=== PATIENT | female | born 1970 ===

== ENCOUNTER 2022-10-22 23:04 | Emergency (ER) | payer OTHER, SELFPAY ==
[2022-10-22 23:43] VITALS: BP 138/63; PULSE 73; RESP 18; TEMP 36.4; O2SAT 98; BMI 19.5
--- OUTSIDE RECORDS SUMMARY | 2022-10-23 01:15 | XMS_ITS | Continuity of Care Document ---
Author Name Unknown Organization [facility] Address [address] [place] [address]- Care Team Providers Care Valet Runner Name Role Phone Davidson BATRES, Ezio Laguerre Primary Care Physician [phone] [facility] [id number] Date(s): 08/02/20 - 08/09/20 [facility] [address], [place] [address] Attending Physician: Chrissy Rivera MD Referring Physician: Ezio Cedeño MD Allergies, Adverse Reactions, Alerts Substance Reaction Severity Status penicillin Active penicillins Active Immunizations Given and Recorded Vaccine Date Status Refusal Reason hepatitis B adult vaccine 02/09/20 Given hepatitis B adult vaccine 02/28/19 Given hepatitis B adult vaccine 01/28/19 Given influenza virus vaccine, inactivated 01/23/20 Give n influenza virus vaccine, inactivated 12/06/18 Give n influenza virus vaccine, inactivated 01/04/18 Give n influenza virus vaccine, inactivated 05/17/15 Give n influenza virus vaccine, inactivated 1 12/07/12 Gi douglas tetanus/diphtheria/pertussis, acel(Tdap) 2 10/24/10 Given 1Admin Note: vis given dated 10/15/12 2Admin Note: VIS GIVEN bermudian 02/08/08 Medications dicyclomine 10 mg oral capsule See Instructions, TAKE 1 CAPSULE BY MOUTH FOUR TIMES A DAY NEEDED FOR PAIN, # 60 capsule, 1 Refills, Maintenance, [id number], 160, cm, 02/09/20 11:43:00 EST, Height, 42.2, kg, 02/09/20 11:49:00 EST, Dry Weight Start Date: 04/25/20 Status: Ordered dicyclomine 10 mg oral capsule 1 capsule = 10 mg, By Mouth, 4 times a day, PRN Pain , Moderate, # 60 capsule, 5 Refills, Maintenance, 04/14/21 11:41:00 EDT, Capsule, [facility]/pharmacy #[id number], 160, cm, 07/04/20 8:39:00 EDT, Height, 42.2,kg, 02/09/20 11:49:00 EST, Dry Weight Start Date: 07/04/20 Stop Date: 12/31/20 Status: Ordered dicyclomine 10 mg oral capsule See Instructions, TAKE ONE CAPSULE BY MOUTH FOUR TIMES DAILY, # 120 capsule, 1 Refills, Soft Stop, 02/24/19 10:35:31 EST, 160, cm, 02/24/19 10:08:39 EST, Height, 43.5, kg, 04/01/18 12:55:23 EST, Dry Weight Start Date: 02/24/19 Status: Ordered escitalopram 5 mg oral tablet 1 tablet = 5 mg, By Mouth, Daily, # 90 tablet, 0 Refills, Maintenance, 03/05/20 16:16:00 EST, Tablet, [id number], 160, cm, 02/09/20 11:43:00 EST, Height, 42.2, kg, 02/09/20 11:49:00 EST, Dry Weight Start Date: 03/05/20 Status: Ordered hydrocortisone-lidocaine 2%-2% rectal kit 1 applicator, Rectally, 2 times a day, PRN rectal itching and discomfort, for 7 days, May also apply a small amount of cream externally 3 x daily, # 1 kit, 1 Refills, Acute 08/16/20 12:13:00 EDT, 08/02/20 12:13:00 EDT, [id number], Label harvinder Sp... Start Date: 08/02/20 Stop Date: 08/16/20 Status: Ordered hydrocortisone-pramoxine 2%-1% topical gel 1 application, Topically, 3 times a day, PRN Itch, for 7 days, Apply to affected area, # 29 Gm, 1 Refills, Acute 08/16/20 13:24:00 EDT, 08/02/20 13:24:00 EDT, [id number], Partial fill upon patient request if the prescription is for a schedule... Start Date: 08/02/20 Stop Date: 08/16/20 Status: Ordered hydroquinone 2% topical cream 1 application, Topically, 2 times a day, Bhutanese, apply to dark lesions on face, use sunscreen withuse, # 28 Gm, 1 Refills, Maintenance, 10/06/18 13:14:56 EDT, Cream, 1 application Topically 2 timesa day,Instr:Bhutanese, apply to dark lesions on face,... Start Date: 10/06/18 Status: Ordered Lactaid 3000 units oral tablet 3 tablet = 9,000 units, By Mouth, 3 times a day with meals, # 120 tablet, 0 Refills, Maintenance, 12/08/19 14:49:00 EDT, Tablet, [facility] #[id number], 160, cm, 09/26/19 13:56:00 EDT, Height, 47.8, kg, 04/04/19 11:54:00 EST, Dry Weight Start Date: 12/08/19 Status: Ordered meclizine 25 mg oral tablet 1 tablet = 25 mg, By Mouth, 3 times a day, PRN for dizziness, # 90 tablet, 1 Refills, Maintenance, 04/08/18 16:05:52 EST, Tablet Start Date: 04/08/18 Status: Ordered Milk of Magnesia 8% oral suspension 30 mL = 2.4 Gm, By Mouth, Daily at bedtime, PRN for constipation, # 300 mL, 0 Refills, Maintenance,12/08/19 14:51:00 EDT, Suspension, [facility] #[id number], 160, cm, 09/26/19 13:56:00 EDT, Height, 47.8, kg, 04/04/19 11:54:00 EST, Dry Weight Start Date: 12/08/19 Status: Ordered nabumetone 500 mg oral tablet 1 tablet = 500 mg, By Mouth, 2 times a day, # 60 tablet, 0 Refills, Maintenance, 07/04/20 9:07:00 EDT, Tablet, Partial fill upon patient request if the prescription is for a schedule II opioid drug. Start Date: 07/04/20 Status: Ordered NuLYTELY with Flavor Packs oral powder for reconstitution See Instructions, Drink 240mL every 10-15 minutes until first half is gone. Repeat 6 hours prior toprocedure., # 4,000 mL, 0 Refills, Maintenance, 12/26/19 14:02:00 EDT, [facility] #[id number],Drink 240mL every 10-15 minutes until first half i... Start Date: 12/26/19 Status: Ordered pantoprazole 20 mg oral delayed release tablet 1 tablet = 20 mg, By Mouth, Daily, # 30 tablet, 4 Refills, Maintenance, 02/09/20 17:32:00 EST, CR Tablet, 160, cm, 02/09/20 11:43:00 EST, Height, 42.2, kg, 02/09/20 11:49:00 EST, Dry Weight Start Date: 02/09/20 Status: Ordered Proctosol-HC 2.5% topical cream See Instructions, Topically 3 times a day apply in a thin film to the affected skin and rub in gently and completely, # 20 Gm, 0 Refills, Maintenance, 08/03/20 12:17:00 EDT, [facility]/pharmacy #[id number], Partial fill upon patient request if the prescription is... Start Date: 08/03/20 Status: Ordered simethicone 80 mg oral tablet 1 tablet = 80 mg, Chew, 3 times a day after meals, PRN as needed for gas, # 60 tablet, 0 Refills, Maintenance, 04/18/19 9:52:00 EST, Tablet, [facility] #[id number], 160, cm, 04/18/19 9:08:00 EST, Height, 47.8, kg, 04/04/19 11:54:00 EST, Dry Weight Start Date: 04/18/19 Status: Ordered SUMAtriptan 50 mg oral tablet 1 tablet = 50 mg, By Mouth, Daily, # 18 tablet, 1 Refills, Soft Stop, 03/05/20 16:16:00 EST, Tablet, [facility]/pharmacy #[id number], 160, cm, 02/09/20 11:43:00 EST, Height, 42.2, kg, 02/09/20 11:49:00 EST, Dry Weight Start Date: 03/05/20 Status: Ordered Truvada 200 mg-300 mg oral tablet 1 tablet, By Mouth, Daily, re-start PreP, # 30 tablet, 3 Refills, Maintenance, 05/29/20 14:58:00 EST, Tablet, [facility]/pharmacy #[id number], 1 tablet By Mouth Daily,Instr:re-start PreP, 160, cm, 02/09/20 11:43:00 EST, Height, 42.2, kg, 02/09/20 11:49:00 EST, Dry... Start Date: 05/29/20 Status: Ordered Truvada 200 mg-300 mg oral tablet 1 tablet, By Mouth, Daily, # 30 tablet, 0 Refills, Maintenance, 04/19/19 13:05:00 EST, Tablet, [facility] #[id number], 1 tablet By Mouth Daily, 160, cm, 04/18/19 9:08:00 EST, Height, 47.8, kg, 04/04/19 11:54:00 EST, Dry Weight Start Date: 04/19/19 Status: Ordered Tylenol 325 mg oral tablet 650 mg, 2, tablet, By Mouth, Every 6 hours, PRN, not to exceed 4000 mg/day, Bhutanese label, # 120 tablet, Refills 1, Tot. Refills 1, Maintenance, Pain , Moderate, 03/05/20 16:16:00 EST, Route to Pharmacy Electronically, [facility]/pharmacy #[id number], Partial fill... Start Date: 03/05/20 Status: Ordered Vitamin D3 1000 intl units oral capsule 1 capsule = 1,000 International_Units, By Mouth, Daily, # 100 capsule, 0 Refills, Maintenance, 04/18/19 9:51:00 EST, Capsule, [facility] #[id number], 160, cm, 04/18/19 9:08:00 EST, Height, 47.8,kg, 04/04/19 11:54:00 EST, Dry Weight Start Date: 04/18/19 Status: Ordered Problem List Condition Effective Dates Status Health Status Inform ant Anxiety(Confirmed) Active Chronic constipation(Confirmed) Active Decreased appetite(Confirmed) Active Epigastric pain(Confirmed) Active Fibroadenoma of breast(Confirmed) Active Gastritis(Confirmed) Active Helicobacter pylori infection(Confirmed) Active Migraine with aura, without mention of intractable migraine without mention of status migrainosus(Confirmed) Active Vitamin D deficiency(Confirmed) Active Loss of weight(Confirmed) Active Vital Signs Most recent to oldest [Reference Range]: 1 Height 160.00 cm (08/02/20 11:50 AM) Oxygen Saturation [94-100 %] 100 % (08/02/20 11:50 AM) Pulse Rate [55-90 bpm] 92 bpm *H* (08/02/20 11:50 AM) Blood Pressure [90-138/55-84 mm Hg] 101/ 62mm Hg (08/02/20 11:50 AM) Respiratory Rate [16-30 br/min] 17 br/mi n (08/02/20 11:50 AM) Temperature [96.8-100.4 DegF] 97.5 DegF (08/02/20 11:50 AM) Mode of Delivery (Oxygen) Room air (08/02/20 11:50 AM) Blood pressure sites Arm, left (08/02/20 11:50 AM) Temperature Route Temporal (08/02/20 11:50 AM) Social History Social History Type Response Smoking Status Never smoker entered on: 11/03/13 Sex Female
--- OUTSIDE RECORDS SUMMARY | 2022-10-23 01:15 | XMS_ITS | Continuity of Care Document ---
Author Name Unknown Organization [facility] Address Unknown Care Team Providers Care Rehabilitation Counselor Name Role Phone Ezio Cedeño MD Primary Care Physician [phone] Encounter [facility] Date(s): 03/08/21 - 04/07/21 [facility] Attending Physician: Janet Lundberg Admitting Physician: Janet Lundberg Referring Physician: Janet Lundberg Allergies, Adverse Reactions, Alerts Substance Reaction Severity Status penicillin Active Immunizations Given and Recorded Vaccine Date Status Refusal Reason tetanus/diphtheria/pertussis, acel(Tdap) 11/08/20 Given tetanus/diphtheria/pertussis, acel(Tdap) 1 10/24/10 Given SARS-CoV-2 (COVID-19) mRNA-1273 vaccine 08/07/20 R ecorded SARS-CoV-2 (COVID-19) mRNA-1273 vaccine 07/10/20 R ecorded hepatitis B adult vaccine 02/09/20 Given hepatitis B adult vaccine 02/28/19 Given hepatitis B adult vaccine 01/28/19 Given influenza virus vaccine, inactivated 01/23/20 Give n influenza virus vaccine, inactivated 12/06/18 Give n influenza virus vaccine, inactivated 01/04/18 Give n influenza virus vaccine, inactivated 05/17/15 Give n influenza virus vaccine, inactivated 2 12/07/12 Gi douglas 1Admin Note: VIS GIVEN serbian 02/08/08 2Admin Note: vis given dated 10/15/12 Medications dicyclomine 10 mg oral capsule See Instructions, TAKE ONE CAPSULE BY MOUTH FOUR TIMES DAILY, # 120 capsule, 1 Refills, Soft Stop, 11/08/20 10:17:00 EDT, [facility] #[id number], 160, cm, 11/08/20 9:35:00 EDT, Height, 42.2, kg,02/09/20 11:49:00 EST, Dry Weight Start Date: 11/08/20 Status: Ordered dicyclomine 10 mg oral capsule 1 capsule = 10 mg, By Mouth, 4 times a day, # 120 capsule, 1 Refills, Maintenance, 02/21/21 13:02:00 EST, Capsule, [facility]/pharmacy #[id number], Partial fill upon patient request if the prescription is for a schedule II opioid drug., 160, cm, 11/08/20 9:35:00 E... Start Date: 02/21/21 Stop Date: 04/22/21 Status: Ordered hydroquinone 2% topical cream 1 application, Topically, 2 times a day, Occitan, apply to dark lesions on face, use sunscreen withuse, # 28 Gm, 1 Refills, Maintenance, 11/08/20 10:16:00 EDT, Cream, [facility] #[id number], 1 application Topically 2 times a day,Instr:Occitan, a... Start Date: 11/08/20 Status: Ordered meclizine 25 mg oral tablet 1 tablet = 25 mg, By Mouth, 3 times a day, PRN for dizziness, # 90 tablet, 1 Refills, Maintenance, 11/08/20 10:17:00 EDT, Tablet, [facility] #[id number], 160, cm, 11/08/20 9:35:00 EDT, Height, 42.2, kg, 02/09/20 11:49:00 EST, Dry Weight Start Date: 11/08/20 Status: Ordered mirtazapine 15 mg oral tablet 1 tablet = 15 mg, By Mouth, Daily at bedtime, Occitan, # 30 tablet, 2 Refills, Maintenance, 02/27/21 8:35:00 EST, Tablet, [facility]/pharmacy #[id number], Partial fill upon patient request if the prescription is for a schedule II opioid drug., 160, cm, 02/27/21 8:... Start Date: 02/27/21 Status: Ordered Nutritional Supplements See Instructions, # 90 each, Refills 11, Tot. Refills 11, Maintenance, Ensure nutritional supplement drinks DX underweight, ICD R63.6 BMI 16.0, 03/01/21 13:52:00 EST, Supply Start Date: 03/01/21 Status: Ordered simethicone 80 mg oral tablet 1 tablet = 80 mg, Chew, 3 times a day after meals, PRN as needed for gas, # 60 tablet, 0 Refills, Maintenance, 11/08/20 10:17:00 EDT, Tablet, [facility] #[id number], 160, cm, 11/08/20 9:35:00 EDT, Height, 42.2, kg, 02/09/20 11:49:00 EST, Dry Weight Start Date: 11/08/20 Status: Ordered SUMAtriptan 50 mg oral tablet 1 tablet = 50 mg, By Mouth, Daily, # 18 tablet, 1 Refills, Soft Stop, 11/08/20 10:17:00 EDT, Tablet, [facility] #[id number], 160, cm, 11/08/20 9:35:00 EDT, Height, 42.2, kg, 02/09/20 11:49:00 EST, Dry Weight Start Date: 11/08/20 Status: Ordered Vitamin D3 1000 intl units oral tablet 1 tablet = 25 mcg, By Mouth, Daily, # 90 tablet, 1 Refills, Maintenance, 02/28/21 11:18:00 EST, [facility]/pharmacy #[id number], Partial fill upon patient request if the prescription is for a schedule II opioid drug., 160, cm, 02/27/21 8:15:00 EST, Height, 42.2, k... Start Date: 02/28/21 Stop Date: 08/27/21 Status: Ordered Problem List Condition Effective Dates Status Health Status Inform ant Anxiety(Confirmed) Active Chronic constipation(Confirmed) Active Decreased appetite(Confirmed) Active Epigastric pain(Confirmed) Active Fibroadenoma of breast(Confirmed) Active Gastritis(Confirmed) Active Helicobacter pylori infection(Confirmed) Active Migraine with aura, without mention of intractable migraine without mention of status migrainosus(Confirmed) Active Underweight(Confirmed) Active Vitamin D deficiency(Confirmed) Active Loss of weight(Confirmed) Active Social History Social History Type Response Smoking Status Never (less than 100 in lifetime) entered on: 11/08/20 Sex Female
--- OUTSIDE RECORDS SUMMARY | 2022-10-23 01:15 | XMS_ITS | Continuity of Care Document ---
Author Name Unknown Organization [facility] Address [address] [place] [address]- Care Team Providers Care Director Of Sustainability Name Role Phone Naun BATRES, Romel Ma Primary Care Physician [phone] Encounter [facility] Date(s): 06/02/19 - 06/12/19 [facility] [address] [place] [address]- [facility] Attending Physician: Janet Lundberg Admitting Physician: Janet Lundberg Referring Physician: AdmtrJanet Allergies, Adverse Reactions, Alerts Substance Reaction Severity Status penicillin Active penicillins Active Immunizations Given and Recorded Vaccine Date Status Refusal Reason hepatitis B adult vaccine 02/28/19 Given hepatitis B adult vaccine 01/28/19 Given influenza virus vaccine, inactivated 12/06/18 Give n influenza virus vaccine, inactivated 01/04/18 Give n influenza virus vaccine, inactivated 05/17/15 Give n influenza virus vaccine, inactivated 1 12/07/12 Gi douglas tetanus/diphtheria/pertussis, acel(Tdap) 2 10/24/10 Given 1Admin Note: vis given dated 10/15/12 2Admin Note: VIS GIVEN mohawk 02/08/08 Medications calcium carbonate-simethicone 250 mg-62.5 mg oral capsule 2 capsule, By Mouth, Every 2 hours, PRN for gas, # 48 capsule, 0 Refills, Maintenance, 06/03/19 20:42:00 EDT, Capsule, [facility] #[id number], 2 capsule By Mouth Every 2 hours,PRN:for gas, 160, cm, 06/02/19 10:06:00 EDT, Height, 47.8, kg, ... Start Date: 06/03/19 Status: Ordered dicyclomine 10 mg oral capsule See Instructions, TAKE ONE CAPSULE BY MOUTH FOUR TIMES DAILY, # 120 capsule, 1 Refills, Soft Stop, 02/24/19 10:35:31 EST, 160, cm, 02/24/19 10:08:39 EST, Height, 43.5, kg, 04/01/18 12:55:23 EST, Dry Weight Start Date: 02/24/19 Status: Ordered docusate-senna 50 mg-187 mg oral tablet 2 tablet, By Mouth, Daily at bedtime, # 90 tablet, 0 Refills, Maintenance, 02/24/19 10:36:59 EST, Tablet, 2 tablet By Mouth Daily at bedtime, 160, cm, 02/24/19 10:08:39 EST, Height, 43.5, kg, 04/01/18 12:55:23 EST, Dry Weight Start Date: 02/24/19 Status: Ordered famotidine 20 mg oral tablet 20 mg, 1, tablet, By Mouth, 2 times a day, PRN, # 30 tablet, Refills 0, Tot. Refills 0, Maintenance, stomach discomfort, 05/13/19 12:22:00 EST, Route to Pharmacy Electronically, [facility] #[id number], 160, cm, 05/13/19 11:57:00 EST, Height, 47.8... Start Date: 05/13/19 Status: Ordered hydroquinone 2% topical cream 1 application, Topically, 2 times a day, Hebrew, apply to dark lesions on face, use sunscreen withuse, # 28 Gm, 1 Refills, Maintenance, 10/06/18 13:14:56 EDT, Cream, 1 application Topically 2 timesa day,Instr:Hebrew, apply to dark lesions on face,... Start Date: 10/06/18 Status: Ordered meclizine 25 mg oral tablet 1 tablet = 25 mg, By Mouth, 3 times a day, PRN for dizziness, # 90 tablet, 1 Refills, Maintenance, 04/08/18 16:05:52 EST, Tablet Start Date: 04/08/18 Status: Ordered MiraLax oral powder for reconstitution = 17 Gm, By Mouth, 2 times a day, PRN Constipation, dissolve in water before taking, # 255 Gm, 1 Refills, Maintenance, 04/18/19 9:51:00 EST, REC Powder, [facility] #[id number], 17 Gm By Mouth 2 times a day,PRN:Constipation,Instr:dissolve in water... Start Date: 04/18/19 Status: Ordered Nabumetone Tablet TK 1 T PO QID Start Date: 05/17/18 Status: Ordered omeprazole 40 mg oral enteric coated capsule 1 capsule = 40 mg, By Mouth, Daily, # 90 capsule, 0 Refills, Maintenance, 06/03/19 20:41:00 EDT, ECCapsule, [facility] #[id number], 160, cm, 06/02/19 10:06:00 EDT, Height, 47.8, kg, 04/04/19 11:54:00 EST, Dry Weight Start Date: 06/03/19 Status: Ordered simethicone 80 mg oral tablet 1 tablet = 80 mg, Chew, 3 times a day after meals, PRN as needed for gas, # 60 tablet, 0 Refills, Maintenance, 04/18/19 9:52:00 EST, Tablet, [facility] #[id number], 160, cm, 04/18/19 9:08:00 EST, Height, 47.8, kg, 04/04/19 11:54:00 EST, Dry Weight Start Date: 04/18/19 Status: Ordered SUMAtriptan 50 mg oral tablet 1 tablet = 50 mg, By Mouth, Daily, # 18 tablet, 1 Refills, Soft Stop, 04/18/19 9:51:00 EST, Tablet,[facility] #[id number], 160, cm, 04/18/19 9:08:00 EST, Height, 47.8, kg, 04/04/19 11:54:00 EST, Dry Weight Start Date: 04/18/19 Status: Ordered Truvada 200 mg-300 mg oral tablet 1 tablet, By Mouth, Daily, # 30 tablet, 2 Refills, Maintenance, 04/21/19 8:52:00 EST, Tablet, [facility] #[id number], 1 tablet By Mouth Daily, 160, cm, 04/18/19 9:08:00 EST, Height, 47.8, kg, 04/04/19 11:54:00 EST, Dry Weight Start Date: 04/21/19 Status: Ordered Truvada 200 mg-300 mg oral tablet 1 tablet, By Mouth, Daily, # 30 tablet, 0 Refills, Maintenance, 04/19/19 13:05:00 EST, Tablet, [facility] #[id number], 1 tablet By Mouth Daily, 160, cm, 04/18/19 9:08:00 EST, Height, 47.8, kg, 04/04/19 11:54:00 EST, Dry Weight Start Date: 04/19/19 Status: Ordered Vitamin D3 1000 intl units oral capsule 1 capsule = 1,000 International_Units, By Mouth, Daily, # 100 capsule, 0 Refills, Maintenance, 04/18/19 9:51:00 EST, Capsule, [facility] #[id number], 160, cm, 04/18/19 9:08:00 EST, Height, 47.8,kg, 04/04/19 11:54:00 EST, Dry Weight Start Date: 04/18/19 Status: Ordered Vitamin D3 1000 intl units oral capsule 1 capsule = 1,000 International_Units, By Mouth, Daily, # 100 capsule, 2 Refills, Maintenance, 04/10/18 15:45:56 EST, Capsule Start Date: 04/10/18 Status: Ordered Problem List Condition Effective Dates Status Health Status Inform ant Chronic constipation(Confirmed) Active Decreased appetite(Confirmed) Active Epigastric pain(Confirmed) Active Fibroadenoma of breast(Confirmed) Active Helicobacter pylori infection(Confirmed) Active Migraine with aura, without mention of intractable migraine without mention of status migrainosus(Confirmed) Active Vitamin D deficiency(Confirmed) Active Loss of weight(Confirmed) Active Social History Social History Type Response Smoking Status Never smoker entered on: 11/03/13 Sex Female
--- OUTSIDE RECORDS SUMMARY | 2022-10-23 01:15 | XMS_ITS | Continuity of Care Document ---
Author Name Unknown Organization [facility] Address [address] [place] [address]- Care Team Providers Care Journey Lineman Name Role Phone Naun BATRES, Romel Ma Primary Care Physician [phone] Encounter [facility] Date(s): 02/15/19 - 03/27/19 [facility] [address]- [facility] Attending Physician: Not on Staff, Attending MD Allergies, Adverse Reactions, Alerts Substance Reaction [...] given dated 10/15/12 2Admin Note: VIS GIVEN romansh 02/08/08 Medications dicyclomine 10 mg oral capsule [...] Dry Weight Start Date: 02/24/19 Status: Ordered hydroquinone 2% topical cream 1 application, Topically, 2 times a day, Macanese, apply to dark lesions on face, use sunscreen withuse, # 28 Gm, 1 Refills, Maintenance, 10/06/18 13:14:56 EDT, Cream, 1 application Topically 2 timesa day,Instr:Macanese, apply to dark lesions on face,... Start Date: 10/06/18 Status: Ordered meclizine 25 mg oral tablet 1 tablet = 25 mg, By Mouth, 3 times a day, PRN for dizziness, # 90 tablet, 1 Refills, Maintenance, 04/08/18 16:05:52 EST, Tablet Start Date: 04/08/18 Status: Ordered MiraLax oral powder for reconstitution = 17 Gm, By Mouth, Daily, PRN Constipation, dissolve in water before taking, # 255 Gm, 0 Refills, Maintenance, 02/24/19 10:37:21 EST, REC Powder, 17 Gm By Mouth Daily,PRN:Constipation,Instr:dissolve in water before taking, 160, cm, 02/24/19 10:08:39 E... Start Date: 02/24/19 Status: Ordered Nabumetone Tablet TK 1 T PO QID Start Date: 05/17/18 Status: Ordered SUMAtriptan 50 mg oral tablet 1 tablet = 50 mg, By Mouth, Daily, # 18 tablet, 0 Refills, Soft Stop, 02/24/19 10:34:13 EST, Tablet, 160, cm, 02/24/19 10:08:39 EST, Height, 43.5, kg, 04/01/18 12:55:23 EST, Dry Weight Start Date: 02/24/19 Status: Ordered Truvada 200 mg-300 mg oral tablet 1 tablet, By Mouth, Daily, # 30 tablet, 2 Refills, Maintenance, 01/28/19 10:27:24 EST, Tablet, 1 tablet By Mouth Daily Start Date: 01/28/19 Status: Ordered Vitamin D3 1000 intl units [...]
--- OUTSIDE RECORDS SUMMARY | 2022-10-23 01:15 | XMS_ITS | Continuity of Care Document ---
Author Name Unknown Organization [facility] y Address [address] [place] [address]- Care Team Providers Care Inside Sales Account Manager Name Role Phone Davidson BATRES, Ezio Laguerre Primary Care Physician Encounter [facility] [place] Date(s): 07/18/20 - 08/17/20 [facility] [address], [place] [address] Attending Physician: Janet Lundberg Admitting Physician: AdmJanet wynn Referring Physician: AdmtrJanet Allergies, Adverse Reactions, Alerts [...] given dated 10/15/12 2Admin Note: VIS GIVEN pashto 02/08/08 Medications dicyclomine 10 mg oral capsule See Instructions, TAKE 1 CAPSULE BY MOUTH FOUR TIMES A DAY NEEDED FOR PAIN, # 60 capsule, 1 Refills, Maintenance, [id number], 160, cm, 02/09/20 11:43:00 EST, Height, 42.2, kg, 02/09/20 11:49:00 EST, Dry Weight Start Date: 04/25/20 Status: Ordered dicyclomine 10 mg oral capsule 1 capsule = 10 mg, By Mouth, 4 times a day, PRN Pain , Moderate, # 60 capsule, 5 Refills, Maintenance, 07/04/20 11:41:00 EDT, Capsule, [facility]/pharmacy #1130, 160, cm, 07/04/20 8:39:00 EDT, Height, [...] 0 Refills, Maintenance, 03/05/20 16:16:00 EST, Tablet, [facility]/pharmacy #1130, 160, cm, 02/09/20 11:43:00 EST, Height, 42.2, kg, 02/09/20 11:49:00 EST, Dry Weight Start Date: 03/05/20 Status: Ordered hydroquinone 2% topical cream 1 application, Topically, 2 times a day, Armenian, apply to dark lesions on face, use sunscreen withuse, # 28 Gm, 1 Refills, Maintenance, 10/06/18 13:14:56 EDT, Cream, 1 application Topically 2 timesa day,Instr:Armenian, apply to dark lesions on face,... Start Date: 10/06/18 Status: Ordered Lactaid 3000 units oral tablet 3 tablet = 9,000 units, By Mouth, 3 times a day with meals, # 120 tablet, 0 Refills, Maintenance, 12/08/19 14:49:00 EDT, Tablet, [facility] #[id number], 160, cm, 09/26/19 13:56:00 EDT, Height, 47.8, [...] mL, 0 Refills, Maintenance,12/08/19 14:51:00 EDT, Suspension, [facility] #[id number], 160, cm, 09/26/19 13:56:00 EDT, Height, 47.8, [...] mL, 0 Refills, Maintenance, 12/26/19 14:02:00 EDT, [facility] #[id number],Drink 240mL every 10-15 minutes until first half [...] Gm, 0 Refills, Maintenance, 08/03/20 12:17:00 EDT, [facility]/pharmacy #1130, Partial fill upon patient request if the prescription is... Start Date: 08/03/20 Status: Ordered simethicone 80 mg oral tablet 1 tablet = 80 mg, Chew, 3 times a day after meals, PRN as needed for gas, # 60 tablet, 0 Refills, Maintenance, 04/18/19 9:52:00 EST, Tablet, [facility] #[id number], 160, cm, 04/18/19 9:08:00 EST, Height, 47.8, kg, 04/04/19 11:54:00 EST, Dry Weight Start Date: 04/18/19 Status: Ordered SUMAtriptan 50 mg oral tablet 1 tablet = 50 mg, By Mouth, Daily, # 18 tablet, 1 Refills, Soft Stop, 03/05/20 16:16:00 EST, Tablet, [facility]/pharmacy #1130, 160, cm, 02/09/20 11:43:00 EST, Height, 42.2, kg, 02/09/20 11:49:00 EST, Dry Weight Start Date: 03/05/20 Status: Ordered Truvada 200 mg-300 mg oral tablet 1 tablet, By Mouth, Daily, re-start PreP, # 30 tablet, 3 Refills, Maintenance, 05/29/20 14:58:00 EST, Tablet, [facility]/pharmacy #1130, 1 tablet By Mouth Daily,Instr:re-start PreP, 160, cm, 02/09/20 11:43:00 EST, Height, 42.2, kg, 02/09/20 11:49:00 EST, Dry... Start Date: 05/29/20 Status: Ordered Truvada 200 mg-300 mg oral tablet 1 tablet, By Mouth, Daily, # 30 tablet, 0 Refills, Maintenance, 04/19/19 13:05:00 EST, Tablet, [facility] #[id number], 1 tablet By Mouth Daily, 160, cm, 04/18/19 9:08:00 EST, Height, 47.8, kg, 04/04/19 11:54:00 EST, Dry Weight Start Date: 04/19/19 Status: Ordered Tylenol 325 mg oral tablet 650 mg, 2, tablet, By Mouth, Every 6 hours, PRN, not to exceed 4000 mg/day, Armenian label, # 120 tablet, Refills 1, Tot. Refills 1, Maintenance, Pain , Moderate, 03/05/20 16:16:00 EST, Route to Pharmacy Electronically, [facility]/pharmacy #1130, Partial fill... Start Date: 03/05/20 Status: Ordered Vitamin D3 1000 intl units oral capsule 1 capsule = 1,000 International_Units, By Mouth, Daily, # 100 capsule, 0 Refills, Maintenance, 04/18/19 9:51:00 EST, Capsule, [facility] #[id number], 160, cm, 04/18/19 9:08:00 EST, Height, 47.8,kg, [...]
--- OUTSIDE RECORDS SUMMARY | 2022-10-23 01:16 | XMS_ITS | Continuity of Care Document ---
Author Name Unknown Organization [facility] Address [address] [place] [address]- Care Team Providers Care Station Worker Name Role Phone Naun BATRES, Romel Ma Primary Care Physician [phone] Encounter [facility] Date(s): 12/09/19 - 01/08/20 [facility] [address] [place] [id number]- [facility] Allergies, Adverse Reactions, Alerts Substance Reaction Severity [...] given dated 10/15/12 2Admin Note: VIS GIVEN vatican citizen 02/08/08 Medications dicyclomine 10 mg oral capsule 1 capsule = 10 mg, By Mouth, 4 times a day, # 56 capsule, 0 Refills, Maintenance, 12/26/19 14:03:00EDT, Capsule, [facility] #[id number], 160, cm, 12/26/19 12:54:00 EDT, Height, 47.8, kg, 04/04/19 11:54:00 EST, Dry Weight Start Date: 12/26/19 Stop Date: 01/09/20 Status: Ordered dicyclomine 10 mg oral capsule [...] Daily, # 90 tablet, 0 Refills, Maintenance, 12/08/19 14:48:00 EDT, Tablet, [facility] #[id number], 160, cm, 09/26/19 13:56:00 EDT, Height, 47.8, kg, 04/04/19 11:54:00 EST, Dry Weight Start Date: 12/08/19 Status: Ordered hydroquinone 2% topical cream 1 application, Topically, 2 times a day, Maori, apply to dark lesions on face, use sunscreen withuse, # 28 Gm, 1 Refills, Maintenance, 10/06/18 13:14:56 EDT, Cream, 1 application Topically 2 timesa day,Instr:Maori, apply to dark lesions on face,... Start Date: 10/06/18 Status: Ordered Lactaid 3000 units oral tablet 3 tablet = 9,000 units, By Mouth, 3 times a day with meals, # 120 tablet, 0 Refills, Maintenance, 12/08/19 14:49:00 EDT, Tablet, [facility] #[id number], 160, cm, 09/26/19 13:56:00 EDT, Height, 47.8, [...] mL, 0 Refills, Maintenance,12/08/19 14:51:00 EDT, Suspension, [facility] #[id number], 160, cm, 09/26/19 13:56:00 EDT, Height, 47.8, kg, 04/04/19 11:54:00 EST, Dry Weight Start Date: 12/08/19 Status: Ordered Nabumetone Tablet TK 1 T PO QID Start Date: 05/17/18 Status: Ordered NuLYTELY with Flavor Packs oral powder for reconstitution See Instructions, Drink 240mL every 10-15 minutes until first half is gone. Repeat 6 hours prior toprocedure., # 4,000 mL, 0 Refills, Maintenance, 12/26/19 14:02:00 EDT, [facility] #[id number],Drink 240mL every 10-15 minutes until first half i... Start Date: 12/26/19 Status: Ordered pantoprazole 20 mg oral delayed release tablet 1 tablet = 20 mg, By Mouth, Daily, # 30 tablet, 2 Refills, Maintenance, 12/26/19 14:02:00 EDT, CR Tablet, 160, cm, 12/26/19 12:54:00 EDT, Height, 47.8, kg, 04/04/19 11:54:00 EST, Dry Weight Start Date: 12/26/19 Status: Ordered simethicone 80 mg oral tablet 1 tablet = 80 mg, Chew, 3 times a day after meals, PRN as needed for gas, # 60 tablet, 0 Refills, Maintenance, 04/18/19 9:52:00 EST, Tablet, [facility] #[id number], 160, cm, 04/18/19 9:08:00 EST, Height, 47.8, kg, 04/04/19 11:54:00 EST, Dry Weight Start Date: 04/18/19 Status: Ordered SUMAtriptan 50 mg oral tablet 1 tablet = 50 mg, By Mouth, Daily, # 18 tablet, 1 Refills, Soft Stop, 04/18/19 9:51:00 EST, Tablet,[facility] #[id number], 160, cm, 04/18/19 9:08:00 EST, Height, 47.8, kg, 04/04/19 11:54:00 EST, Dry Weight Start Date: 04/18/19 Status: Ordered Truvada 200 mg-300 mg oral tablet 1 tablet, By Mouth, Daily, # 30 tablet, 0 Refills, Maintenance, 04/19/19 13:05:00 EST, Tablet, [facility] #[id number], 1 tablet By Mouth Daily, 160, cm, 04/18/19 9:08:00 EST, Height, 47.8, kg, 04/04/19 11:54:00 EST, Dry Weight Start Date: 04/19/19 Status: Ordered Vitamin D3 1000 intl units oral capsule 1 capsule = 1,000 International_Units, By Mouth, Daily, # 100 capsule, 0 Refills, Maintenance, 04/18/19 9:51:00 EST, Capsule, [facility] #[id number], 160, cm, 04/18/19 9:08:00 EST, Height, 47.8,kg, [...]
--- OUTSIDE RECORDS SUMMARY | 2022-10-23 01:16 | XMS_ITS | Continuity of Care Document ---
Author Name Unknown Organization [facility] Address [address] [place] [id number]- Care Team Providers Care Taxation Consultant Name Role Phone Romel Magallon MD Primary Care Physician [phone] Encounter [facility] Date(s): 07/14/19 - 11/11/19 [facility] [address] [place] [id number] [facility] Attending Physician: Garret Mcguire MD Admitting Physician: Garret Mcguire MD Referring Physician: Romel Magallon MD Allergies, Adverse Reactions, Alerts Substance Reaction [...] given dated 10/15/12 2Admin Note: VIS GIVEN omani 02/08/08 Medications calcium carbonate-simethicone 250 mg-62.5 mg oral capsule 2 capsule, By Mouth, Every 2 hours, PRN for gas, # 48 capsule, 0 Refills, Maintenance, 06/03/19 20:42:00 EDT, Capsule, [facility] #[id number], 2 capsule By Mouth Every 2 hours,PRN:for [...] 05/13/19 12:22:00 EST, Route to Pharmacy Electronically, [facility] #[id number], 160, cm, 05/13/19 11:57:00 EST, Height, 47.8... Start Date: 05/13/19 Status: Ordered hydroquinone 2% topical cream 1 application, Topically, 2 times a day, Polish, apply to dark lesions on face, use sunscreen withuse, # 28 Gm, 1 Refills, Maintenance, 10/06/18 13:14:56 EDT, Cream, 1 application Topically 2 timesa day,Instr:Polish, apply to dark lesions on face,... Start [...] Refills, Maintenance, 04/18/19 9:51:00 EST, REC Powder, [facility] #[id number], 17 Gm By Mouth 2 times a day,PRN:Constipation,Instr:dissolve in water... Start Date: 04/18/19 Status: Ordered Nabumetone Tablet TK 1 T PO QID Start Date: 05/17/18 Status: Ordered omeprazole 40 mg oral enteric coated capsule 1 capsule = 40 mg, By Mouth, Daily, # 90 capsule, 0 Refills, Maintenance, 06/03/19 20:41:00 EDT, ECCapsule, [facility] #52793, 160, cm, 06/02/19 10:06:00 EDT, Height, 47.8, kg, 04/04/19 11:54:00 EST, Dry Weight Start Date: 06/03/19 Status: Ordered pantoprazole 20 mg oral delayed release tablet 1 tablet = 20 mg, By Mouth, Daily, Take 30-60 minutes before eating, # 30 tablet, 2 Refills, Maintenance, 09/26/19 14:29:00 EDT, CR Tablet, Instructions in Polish, 160, cm, 09/26/19 13:56:00 EDT, Height, 47.8, kg, 04/04/19 11:54:00 EST, Dry Weight Start Date: 09/26/19 Status: Ordered simethicone 80 mg oral tablet 1 tablet = 80 mg, Chew, 3 times a day after meals, PRN as needed for gas, # 60 tablet, 0 Refills, Maintenance, 04/18/19 9:52:00 EST, Tablet, [facility] #[id number], 160, cm, 04/18/19 9:08:00 EST, Height, 47.8, kg, 04/04/19 11:54:00 EST, Dry Weight Start Date: 04/18/19 Status: Ordered SUMAtriptan 50 mg oral tablet 1 tablet = 50 mg, By Mouth, Daily, # 18 tablet, 1 Refills, Soft Stop, 04/18/19 9:51:00 EST, Tablet,[facility] #[id number], 160, cm, 04/18/19 9:08:00 EST, Height, 47.8, kg, 04/04/19 11:54:00 EST, Dry Weight Start Date: 04/18/19 Status: Ordered Truvada 200 mg-300 mg oral tablet 1 tablet, By Mouth, Daily, # 30 tablet, 3 Refills, Maintenance, 07/12/19 13:47:00 EDT, Tablet, [facility] #[id number], 1 tablet By Mouth Daily, 160, cm, 06/02/19 10:06:00 EDT, Height, 47.8, kg, 04/04/19 11:54:00 EST, Dry Weight Start Date: 07/12/19 Status: Ordered Truvada 200 mg-300 mg oral tablet 1 tablet, By Mouth, Daily, # 30 tablet, 0 Refills, Maintenance, 04/19/19 13:05:00 EST, Tablet, [facility] #[id number], 1 tablet By Mouth Daily, 160, cm, 04/18/19 9:08:00 EST, Height, 47.8, kg, 04/04/19 11:54:00 EST, Dry Weight Start Date: 04/19/19 Status: Ordered Vitamin D3 1000 intl units oral capsule 1 capsule = 1,000 International_Units, By Mouth, Daily, # 100 capsule, 0 Refills, Maintenance, 04/18/19 9:51:00 EST, Capsule, [facility] #[id number], 160, cm, 04/18/19 9:08:00 EST, Height, 47.8,kg, [...]
--- OUTSIDE RECORDS SUMMARY | 2022-10-23 01:16 | XMS_ITS | Continuity of Care Document ---
Author Name Unknown Organization [facility] Address Unknown Care Team Providers Care Billet Examiner Name Role Phone Ezio Cedeño MD Primary Care Physician Encounter [facility] Date(s): 10/16/20 - 11/15/20 [facility] Attending Physician: Janet Lundberg Admitting [...] 12/07/12 Gi douglas 1Admin Note: VIS GIVEN citizen of the domin[place] republic 02/08/08 2Admin Note: vis given dated 10/15/12 Medications dicyclomine 10 mg oral capsule See Instructions, TAKE ONE CAPSULE BY MOUTH FOUR TIMES DAILY, # 120 capsule, 1 Refills, Soft Stop, 11/08/20 10:17:00 EDT, [facility] #[id number], 160, cm, 11/08/20 9:35:00 EDT, Height, 42.2, kg,02/09/20 11:49:00 EST, Dry Weight Start Date: 11/08/20 Status: Ordered hydroquinone 2% topical cream 1 application, Topically, 2 times a day, Gibraltarian, apply to dark lesions on face, use sunscreen withuse, # 28 Gm, 1 Refills, Maintenance, 11/08/20 10:16:00 EDT, Cream, [facility] #[id number], 1 application Topically 2 times a day,Instr:Gibraltarian, a... Start Date: 11/08/20 Status: Ordered meclizine 25 mg oral tablet 1 tablet = 25 mg, By Mouth, 3 times a day, PRN for dizziness, # 90 tablet, 1 Refills, Maintenance, 11/08/20 10:17:00 EDT, Tablet, [facility] #[id number], 160, cm, 11/08/20 9:35:00 EDT, Height, 42.2, kg, 02/09/20 11:49:00 EST, Dry Weight Start Date: 11/08/20 Status: Ordered simethicone 80 mg oral tablet 1 tablet = 80 mg, Chew, 3 times a day after meals, PRN as needed for gas, # 60 tablet, 0 Refills, Maintenance, 11/08/20 10:17:00 EDT, Tablet, [facility] #[id number], 160, cm, 11/08/20 9:35:00 EDT, Height, 42.2, kg, 02/09/20 11:49:00 EST, Dry Weight Start Date: 11/08/20 Status: Ordered SUMAtriptan 50 mg oral tablet 1 tablet = 50 mg, By Mouth, Daily, # 18 tablet, 1 Refills, Soft Stop, 11/08/20 10:17:00 EDT, Tablet, [facility] #[id number], 160, cm, 11/08/20 9:35:00 EDT, Height, 42.2, kg, 02/09/20 11:49:00 EST, Dry Weight Start Date: 11/08/20 Status: Ordered Problem List Condition Effective Dates [...]
--- OUTSIDE RECORDS SUMMARY | 2022-10-23 01:16 | XMS_ITS | Continuity of Care Document ---
Author Name Unknown Organization [facility] Address [address] [place] [id number]- Care Team Providers Care Network Intelligence Analyst Name Role Phone Davidson BATRES, Ezio Laguerre Primary Care Physician [place] [facility] 12/27/20 - 01/26/21 [facility] [address] [place] [id number] Attending Physician: Janet Lundberg Admitting Physician: Admtr, Janet Referring Physician: Admtr, Ar8 Allergies, Adverse Reactions, Alerts Substance Reaction Severity [...] 12/07/12 Gi douglas 1Admin Note: VIS GIVEN german 02/08/08 2Admin Note: vis given dated 10/15/12 Medications dicyclomine 10 mg oral capsule See Instructions, TAKE ONE CAPSULE BY MOUTH FOUR TIMES DAILY, # 120 capsule, 1 Refills, Soft Stop, 11/08/20 10:17:00 EDT, [facility] #[id number], 160, cm, 11/08/20 9:35:00 EDT, Height, 42.2, kg,02/09/20 11:49:00 EST, Dry Weight Start Date: 11/08/20 Status: Ordered hydroquinone 2% topical cream 1 application, Topically, 2 times a day, Gibraltarian, apply to dark lesions on face, use sunscreen withuse, # 28 Gm, 1 Refills, Maintenance, 11/08/20 10:16:00 EDT, Cream, [facility] #28378, 1 application Topically 2 times a day,Instr:Gibraltarian, a... Start Date: 11/08/20 Status: Ordered meclizine 25 mg oral tablet 1 tablet = 25 mg, By Mouth, 3 times a day, PRN for dizziness, # 90 tablet, 1 Refills, Maintenance, 11/08/20 10:17:00 EDT, Tablet, [facility] #[id number], 160, cm, 11/08/20 9:35:00 EDT, Height, 42.2, kg, 02/09/20 11:49:00 EST, Dry Weight Start Date: 11/08/20 Status: Ordered simethicone 80 mg oral tablet 1 tablet = 80 mg, Chew, 3 times a day after meals, PRN as needed for gas, # 60 tablet, 0 Refills, Maintenance, 11/08/20 10:17:00 EDT, Tablet, [facility] #[id number], 160, cm, 11/08/20 9:35:00 EDT, Height, 42.2, kg, 02/09/20 11:49:00 EST, Dry Weight Start Date: 11/08/20 Status: Ordered SUMAtriptan 50 mg oral tablet 1 tablet = 50 mg, By Mouth, Daily, # 18 tablet, 1 Refills, Soft Stop, 11/08/20 10:17:00 EDT, Tablet, [facility] #[id number], 160, cm, 11/08/20 9:35:00 EDT, Height, 42.2, [...]
--- OUTSIDE RECORDS SUMMARY | 2022-10-23 01:16 | XMS_ITS | Continuity of Care Document ---
Author Name Unknown Organization [facility] Address [address] [place] [address]- Care Team Providers Care Handle Assembler Name Role Phone Marilinrose JACKSON Jillian Primary Care Physician [place] [facility] [place]12[place]22 - 06/11/22 [facility] [address], [place] [address] Allergies, Adverse Reactions, Alerts Substance Reaction Severity Status penicillin Active Immunizations Given and Recorded Vaccine Date Status Refusal Reason SARS-CoV-2 (COVID-19) mRNA-1273 vaccine 07/04/21 R ecorded SARS-CoV-2 (COVID-19) mRNA-1273 vaccine 08/07/20 R ecorded SARS-CoV-2 (COVID-19) mRNA-1273 vaccine 07/10/20 R ecorded tetanus/diphtheria/pertussis, acel(Tdap) 11/08/20 Given tetanus/diphtheria/pertussis, acel(Tdap) 1 10/24/10 Given hepatitis B adult vaccine 02/09/20 Given hepatitis B adult vaccine 02/28/19 Given hepatitis B adult vaccine 01/28/19 Given influenza virus vaccine, inactivated 01/23/20 Give n influenza virus vaccine, inactivated 12/06/18 Give n influenza virus vaccine, inactivated 01/04/18 Give n influenza virus vaccine, inactivated 05/17/15 Give n influenza virus vaccine, inactivated 2 12/07/12 Gi douglas 1Admin Note: VIS GIVEN iranian 02/08/08 2Admin Note: vis given dated 10/15/12 Medications Combipatch 0.05 mg-0.14 mg/24 hours transdermal film, extended release 1 patch, Topically, Every Thursday and , # 8 patch, 6 Refills, Maintenance, 01/08/22 20:12:00EDT, [id number], Partial fill upon patient request if the prescription is for a schedule IIopioid drug., 1 patch Topically Every Thursday and .. Start Date: 01/08/22 Status: Ordered cyclobenzaprine 7.5 mg oral tablet 1 tablet = 7.5 mg, By Mouth, 3 times a day, PRN for spasm, # 60 tablet, 1 Refills, Maintenance, 05/19/22 13:52:00 EST, Tablet, [facility]/pharmacy #1130, Partial fill upon patient request if the prescription is for a schedule II opioid drug., 160, cm, ... Start Date: 05/19/22 Status: Ordered dicyclomine 10 mg oral capsule 1 capsule, By Mouth, 4 times a day, PRN NEEDED FOR MODERATE PAIN, # 120 capsule, 1 Refills, 03/05/22 12:35:00 EST, [facility], 160, cm, 01/08/22 9:48:00 EDT, Height Start Date: 03/05/22 Status: Ordered escitalopram 10 mg oral tablet 1 tablet = 10 mg, By Mouth, Daily, Take half tablet daily for 2 weeks, then 1 tablet daily thereafter Japanese label please, # 90 tablet, 0 Refills, Maintenance, 02/12/22 11:01:00 EST, Tablet, [facility]/pharmacy #1130, Partial fill upon patient request i... Start Date: 02/12/22 Stop Date: 05/13/22 Status: Ordered MiraLax oral powder for reconstitution = 17 Gm, By Mouth, Daily, Titrate as needed, # 527 Gm, 1 Refills, Maintenance, 04/22/21 10:51:00 EST, [facility]/pharmacy #1130, Partial fill upon patient request if the prescription is for a schedule II opioid drug., 17 Gm By Mouth Daily,Instr:Titrate as ne... Start Date: 04/22/21 Status: Ordered naproxen 375 mg oral tablet 375 mg, 1, tablet, By Mouth, 2 times a day, PRN, # 20 tablet, Refills 1, Tot. Refills 1, Maintenance, for pain, 05/19/22 13:53:00 EST, Route to Pharmacy Electronically, [facility]/pharmacy #[id number], Partial fill upon patient request if the prescription is for a... Start Date: 05/19/22 Status: Ordered Nutritional Supplements See Instructions, # 90 each, Refills 11, Tot. Refills 11, Maintenance, Ensure nutritional supplement drinks DX underweight, ICD R63.6 BMI 16.0, 03/01/21 13:52:00 EST, Supply Start Date: 03/01/21 Status: Ordered pantoprazole 40 mg oral delayed release tablet 1 tablet = 40 mg, By Mouth, Daily, # 30 tablet, 3 Refills, Maintenance, 04/22/21 10:51:00 EST, [facility] Tablet, 160, cm, 04/22/21 10:31:00 EST, Height, 42.2, kg, 02/09/20 11:49:00 EST, Dry Weight Start Date: 04/22/21 Status: Ordered SUMAtriptan 50 mg oral tablet 1 tablet = 50 mg, By Mouth, Daily, PRN as needed for migraine headache, may repeat dose in 2 hours if needed, # 30 tablet, 11 Refills, Soft Stop, 05/19/22 13:52:00 EST, Tablet, [facility], 160, cm, 05/19/22 13:39:00 EST, Height Start Date: 05/19/22 Status: Ordered Truvada 200 mg-300 mg oral tablet 1 tablet, By Mouth, Daily, re-start PreP, # 30 tablet, 11 Refills, Maintenance, 05/19/22 13:52:00 EST, Tablet, [facility], 1 tablet By Mouth Daily,Instr:re-start PreP, 160, cm, 05/19/22 13:39:00 EST, Height Start Date: 05/19/22 Status: Ordered Vitamin D3 1000 intl units oral tablet 1 tablet = 25 mcg, By Mouth, Daily, # 90 tablet, 1 Refills, Maintenance, 02/12/22 10:33:00 EST, [id number], Partial fill upon patient request if the prescription is for a schedule II opioid drug., 160, cm, 01/08/22 9:48:00 EDT, Height Start Date: 02/12/22 Stop Date: 08/11/22 Status: Ordered Problem List Condition Confirmation Course Effective Dates Status Health St atus Informant Anxiety Confirmed Active Chronic constipation Confirmed Active Decreased appetite Confirmed Active Epigastric pain Confirmed Active Fibroadenoma of breast Confirmed Active Gastritis Confirmed Active Helicobacter pylori infection Confirmed Active Migraine with aura, without mention of intractable migraine without mention of status migrainosus Confirmed Active Underweight Confirmed Active Vitamin D deficiency Confirmed Active Loss of weight Confirmed Active Social History Social History Type Response Smoking Status Never (less than 100 in lifetime) entered on: 11/08/20 Sex Patient Care team information Care Team Personnel Name: Jillian Bautista DO Position: S Resident Member Role: PCP Address: Address: [address] [place] [address]- Care Team Related Persons Name: DANA MARTIN Address: [address] [place] [address] Name: TERENCE MARTIN Name: CHAVA VASQUEZ Address: home [address] [place] [address] Name: JONES TAPIA
--- OUTSIDE RECORDS SUMMARY | 2022-10-23 01:16 | XMS_ITS | Continuity of Care Document ---
Author Name Unknown Organization [facility] Address [address] [place] [id number]- Care Team Providers Care Ground Water Technician Name Role Phone Ezio Cedeño MD Primary Care Physician Encounter [facility] Date(s): 04/22/21 - 05/22/21 [facility] [address] [place] [id number]- Attending Physician: Janet Lundberg Admitting Physician: AdmtrJaent Referring Physician: Admtr, ArHarris Allergies, Adverse Reactions, Alerts Substance Reaction Severity [...] 12/07/12 Gi douglas 1Admin Note: VIS GIVEN thai 02/08/08 2Admin Note: vis given dated 10/15/12 Medications dicyclomine 10 mg oral capsule 1 capsule, By Mouth, 4 times a day, PRN NEEDED FOR MODERATE PAIN, # 120 capsule, 1 Refills, [id number], 160, cm, 04/22/21 10:31:00 EST, Height, 42.2, kg, 02/09/20 11:49:00 EST, Dry Weight Start Date: 05/21/21 Status: Ordered hydroquinone 2% topical cream 1 application, Topically, 2 times a day, Danish, apply to dark lesions on face, use sunscreen withuse, # 28 Gm, 1 Refills, Maintenance, 11/08/20 10:16:00 EDT, Cream, [facility] #[id number], 1 application Topically 2 times a day,Instr:Danish, a... Start Date: 11/08/20 Status: Ordered meclizine 25 mg oral tablet 1 tablet = 25 mg, By Mouth, 3 times a day, PRN for dizziness, # 90 tablet, 1 Refills, Maintenance, 11/08/20 10:17:00 EDT, Tablet, [facility] #[id number], 160, cm, 11/08/20 9:35:00 EDT, Height, 42.2, kg, 02/09/20 11:49:00 EST, Dry Weight Start Date: 11/08/20 Status: Ordered MiraLax oral powder for reconstitution = 17 Gm, By Mouth, Daily, Titrate as needed, # 527 Gm, 1 Refills, Maintenance, 04/22/21 10:51:00 EST, [facility]pharmacy #[id number], Partial fill upon patient request if the prescription is for a schedule II opioid drug., 17 Gm By Mouth Daily,Instr:Titrate as ne... Start Date: 04/22/21 Status: Ordered mirtazapine 15 mg oral tablet 1 tablet = 15 mg, By Mouth, Daily at bedtime, Danish, # 30 tablet, 2 Refills, Maintenance, 02/27/21 8:35:00 EST, Tablet, [facility] #[id number], Partial fill upon patient request if the prescription is for a schedule II opioid drug., 160, cm, 02/27/21 8:... Start Date: 02/27/21 Status: Ordered mirtazapine 7.5 mg oral tablet 1 tablet = 7.5 mg, By Mouth, Daily at bedtime, # 30 tablet, 3 Refills, Maintenance, 04/09/21 9:45:00 EST, [id number], Partial fill upon patient request if the prescription is for a schedule II opioid drug., 160, cm, 04/09/21 9:04:00 EST, Heigh... Start Date: 04/09/21 Stop Date: 08/07/21 Status: Ordered NuLYTELY with Flavor Packs oral powder for reconstitution See Instructions, Drink 240mL every 15-20 minutes until first half is gone. Repeat 6 hours prior toprocedure., # 4,000 mL, 0 Refills, Maintenance, 04/22/21 10:50:00 EST, [facility]/pharm[facility] #[id number], Partial fill upon patient request if the prescription is fo... Start Date: 04/22/21 Status: Ordered Nutritional Supplements See Instructions, # 90 each, Refills 11, Tot. Refills 11, Maintenance, Ensure nutritional supplement drinks DX underweight, ICD R63.6 BMI 16.0, 03/01/21 13:52:00 EST, Supply Start Date: 03/01/21 Status: Ordered pantoprazole 40 mg oral delayed release tablet 1 tablet = 40 mg, By Mouth, Daily, # 30 tablet, 3 Refills, Maintenance, 04/09/21 9:46:00 EST, [facility], 160, cm, 04/09/21 9:04:00 EST, Height, 42.2, kg, 02/09/20 11:49:00 EST, Dry Weight Start Date: 04/09/21 Status: Ordered pantoprazole 40 mg oral delayed release tablet 1 tablet = 40 mg, By Mouth, Daily, # 30 tablet, 3 Refills, Maintenance, 04/22/21 10:51:00 EST, [facility], 160, cm, 04/22/21 10:31:00 EST, Height, 42.2, kg, 02/09/20 11:49:00 EST, Dry Weight Start Date: 04/22/21 Status: Ordered simethicone 80 mg oral tablet 1 tablet = 80 mg, Chew, 3 times a day after meals, PRN as needed for gas, # 60 tablet, 0 Refills, Maintenance, 11/08/20 10:17:00 EDT, Tablet, [facility] #[id number], 160, cm, 11/08/20 9:35:00 EDT, Height, 42.2, kg, 02/09/20 11:49:00 EST, Dry Weight Start Date: 11/08/20 Status: Ordered SUMAtriptan 50 mg oral tablet 1 tablet = 50 mg, By Mouth, Daily, # 18 tablet, 1 Refills, Soft Stop, 11/08/20 10:17:00 EDT, Tablet, [facility] #[id number], 160, cm, 11/08/20 9:35:00 EDT, Height, 42.2, kg, 02/09/20 11:49:00 EST, Dry Weight Start Date: 11/08/20 Status: Ordered Truvada 200 mg-300 mg oral tablet 1 tablet, By Mouth, Daily, re-start PreP, # 30 tablet, 6 Refills, Maintenance, 05/14/21 8:00:00 EST, Tablet, [facility] #[id number], 1 tablet By Mouth Daily,Instr:re-start PreP, 160, cm, 04/22/21 10:31:00 EST, Height, 42.2, kg, 02/09/20 11:49:00 EST, Dry... Start Date: 05/14/21 Status: Ordered Vitamin D3 1000 intl units oral tablet 1 tablet = 25 mcg, By Mouth, Daily, # 90 tablet, 1 Refills, Maintenance, 02/28/21 11:18:00 EST, [id number], Partial fill upon patient [...]
--- OUTSIDE RECORDS SUMMARY | 2022-10-23 01:16 | XMS_ITS | Continuity of Care Document ---
Author Name Unknown Organization [facility] Address [address] [place] [id number]- Care Team Providers Care Executive Sales Assistant Name Role Phone Naun BATRES, Romel Ma Primary Care Physician Encounter [facility] Date(s): 05/13/19 - 06/15/19 [facility] [address] [place] [id number]- [facility] Attending Physician: Not on Staff, Attending [...] given dated 10/15/12 2Admin Note: VIS GIVEN hong konger 02/08/08 Medications calcium carbonate-simethicone 250 mg-62.5 mg oral capsule 2 capsule, By Mouth, Every 2 hours, PRN for gas, # 48 capsule, 0 Refills, Maintenance, 06/03/19 20:42:00 EDT, Capsule, [facility] #[id number], 2 capsule By Mouth Every 2 hours,PRN:for [...] 05/13/19 12:22:00 EST, Route to Pharmacy Electronically, [facility] #[id number], 160, cm, 05/13/19 11:57:00 EST, Height, 47.8... Start Date: 05/13/19 Status: Ordered hydroquinone 2% topical cream 1 application, Topically, 2 times a day, Lithuanian, apply to dark lesions on face, use sunscreen withuse, # 28 Gm, 1 Refills, Maintenance, 10/06/18 13:14:56 EDT, Cream, 1 application Topically 2 timesa day,Instr:Lithuanian, apply to dark lesions on face,... Start [...] Refills, Maintenance, 04/18/19 9:51:00 EST, REC Powder, [facility] #[id number], 17 Gm By Mouth 2 times a day,PRN:Constipation,Instr:dissolve in water... Start Date: 04/18/19 Status: Ordered Nabumetone Tablet TK 1 T PO QID Start Date: 05/17/18 Status: Ordered omeprazole 40 mg oral enteric coated capsule 1 capsule = 40 mg, By Mouth, Daily, # 90 capsule, 0 Refills, Maintenance, 06/03/19 20:41:00 EDT, ECCapsule, [facility] #[id number], 160, cm, 06/02/19 10:06:00 EDT, Height, 47.8, kg, 04/04/19 11:54:00 EST, Dry Weight Start Date: 06/03/19 Status: Ordered simethicone 80 mg oral tablet 1 tablet = 80 mg, Chew, 3 times a day after meals, PRN as needed for gas, # 60 tablet, 0 Refills, Maintenance, 04/18/19 9:52:00 EST, Tablet, [facility] #[id number], 160, cm, 04/18/19 9:08:00 EST, Height, 47.8, kg, 04/04/19 11:54:00 EST, Dry Weight Start Date: 04/18/19 Status: Ordered SUMAtriptan 50 mg oral tablet 1 tablet = 50 mg, By Mouth, Daily, # 18 tablet, 1 Refills, Soft Stop, 04/18/19 9:51:00 EST, Tablet,[facility] #[id number], 160, cm, 04/18/19 9:08:00 EST, Height, 47.8, kg, 04/04/19 11:54:00 EST, Dry Weight Start Date: 04/18/19 Status: Ordered Truvada 200 mg-300 mg oral tablet 1 tablet, By Mouth, Daily, # 30 tablet, 2 Refills, Maintenance, 04/21/19 8:52:00 EST, Tablet, [facility] #[id number], 1 tablet By Mouth Daily, 160, cm, 04/18/19 9:08:00 EST, Height, 47.8, kg, 04/04/19 11:54:00 EST, Dry Weight Start Date: 04/21/19 Status: Ordered Truvada 200 mg-300 mg oral tablet 1 tablet, By Mouth, Daily, # 30 tablet, 0 Refills, Maintenance, 04/19/19 13:05:00 EST, Tablet, [facility] #[id number], 1 tablet By Mouth Daily, 160, cm, 04/18/19 9:08:00 EST, Height, 47.8, kg, 04/04/19 11:54:00 EST, Dry Weight Start Date: 04/19/19 Status: Ordered Vitamin D3 1000 intl units oral capsule 1 capsule = 1,000 International_Units, By Mouth, Daily, # 100 capsule, 0 Refills, Maintenance, 04/18/19 9:51:00 EST, Capsule, [facility] #[id number], 160, cm, 04/18/19 9:08:00 EST, Height, 47.8,kg, [...]
--- OUTSIDE RECORDS SUMMARY | 2022-10-23 01:16 | XMS_ITS | Continuity of Care Document ---
Author Name Unknown Organization [facility] Address [address] [place] [address]- Care Team Providers Care Certified Surgical Technician Name Role Phone Naun BATRES, Romel Ma Primary Care Physician Encounter [facility] Date(s): 11/15/19 - 12/16/19 [facility] [place] [address]- [facility] Attending Physician: Nika Garcia MD Admitting Physician: Nika Garcia MD Referring Physician: Debbie Shrestha NP Allergies, Adverse Reactions, Alerts Substance Reaction Severity [...] given dated 10/15/12 2Admin Note: VIS GIVEN indonesian 02/08/08 Medications dicyclomine 10 mg oral capsule [...] 0 Refills, Maintenance, 12/08/19 14:48:00 EDT, Tablet, [facility] #[id number], 160, cm, 09/26/19 13:56:00 EDT, Height, 47.8, kg, 04/04/19 11:54:00 EST, Dry Weight Start Date: 12/08/19 Status: Ordered hydroquinone 2% topical cream 1 application, Topically, 2 times a day, Georgian, apply to dark lesions on face, use sunscreen withuse, # 28 Gm, 1 Refills, Maintenance, 10/06/18 13:14:56 EDT, Cream, 1 application Topically 2 timesa day,Instr:Georgian, apply to dark lesions on face,... Start Date: 10/06/18 Status: Ordered Lactaid 3000 units oral tablet 3 tablet = 9,000 units, By Mouth, 3 times a day with meals, # 120 tablet, 0 Refills, Maintenance, 12/08/19 14:49:00 EDT, Tablet, [facility] #[id number], 160, cm, 09/26/19 13:56:00 EDT, Height, 47.8, [...] mL, 0 Refills, Maintenance,12/08/19 14:51:00 EDT, Suspension, [facility] #[id number], 160, cm, 09/26/19 13:56:00 EDT, Height, 47.8, kg, 04/04/19 11:54:00 EST, Dry Weight Start Date: 12/08/19 Status: Ordered Nabumetone Tablet TK 1 T PO QID Start Date: 05/17/18 Status: Ordered simethicone 80 mg oral tablet 1 tablet = 80 mg, Chew, 3 times a day after meals, PRN as needed for gas, # 60 tablet, 0 Refills, Maintenance, 04/18/19 9:52:00 EST, Tablet, [facility] #[id number], 160, cm, 04/18/19 9:08:00 EST, Height, 47.8, kg, 04/04/19 11:54:00 EST, Dry Weight Start Date: 04/18/19 Status: Ordered SUMAtriptan 50 mg oral tablet 1 tablet = 50 mg, By Mouth, Daily, # 18 tablet, 1 Refills, Soft Stop, 04/18/19 9:51:00 EST, Tablet,[facility] #[id number], 160, cm, 04/18/19 9:08:00 EST, Height, 47.8, kg, 04/04/19 11:54:00 EST, Dry Weight Start Date: 04/18/19 Status: Ordered Truvada 200 mg-300 mg oral tablet 1 tablet, By Mouth, Daily, # 30 tablet, 0 Refills, Maintenance, 04/19/19 13:05:00 EST, Tablet, [facility] #[id number], 1 tablet By Mouth Daily, 160, cm, 04/18/19 9:08:00 EST, Height, 47.8, kg, 04/04/19 11:54:00 EST, Dry Weight Start Date: 04/19/19 Status: Ordered Vitamin D3 1000 intl units oral capsule 1 capsule = 1,000 International_Units, By Mouth, Daily, # 100 capsule, 0 Refills, Maintenance, 04/18/19 9:51:00 EST, Capsule, [facility] #[id number], 160, cm, 04/18/19 9:08:00 EST, Height, 47.8,kg, [...]
--- OUTSIDE RECORDS SUMMARY | 2022-10-23 01:16 | XMS_ITS | Continuity of Care Document ---
Author Name Unknown Organization [facility] Address [address] [place] [address]- Care Team Providers Care Footwear Machinery Instructor Name Role Phone Davidson BATRES, Ezio Laguerre Primary Care Physician Encounter [facility] Date(s): 02/28/21 - 03/30/21 [facility] [address] [place], [place] [id number] Allergies, Adverse Reactions, Alerts Substance Reaction Severity [...] 12/07/12 Gi douglas 1Admin Note: VIS GIVEN icelandic 02/08/08 2Admin Note: vis given dated 10/15/12 Medications dicyclomine 10 mg oral capsule See Instructions, TAKE ONE CAPSULE BY MOUTH FOUR TIMES DAILY, # 120 capsule, 1 Refills, Soft Stop, 11/08/20 10:17:00 EDT, [facility] #[id number], 160, cm, 11/08/20 9:35:00 EDT, Height, 42.2, kg,11/19/20 11:49:00 EST, Dry Weight Start Date: 11/08/20 Status: Ordered dicyclomine 10 mg oral capsule 1 capsule = 10 mg, By Mouth, 4 times a day, # 120 capsule, 1 Refills, Maintenance, 02/21/21 13:02:00 EST, Capsule, [facility]/pharmacy #[id number], Partial fill upon patient request if the prescription is for a schedule II opioid drug., 160, cm, 11/08/20 9:35:00 E... Start Date: 02/21/21 Stop Date: 04/22/21 Status: Ordered hydroquinone 2% topical cream 1 application, Topically, 2 times a day, Finnish, apply to dark lesions on face, use sunscreen withuse, # 28 Gm, 1 Refills, Maintenance, 11/08/20 10:16:00 EDT, Cream, [facility] #[id number], 1 application Topically 2 times a day,Instr:Finnish, a... Start Date: 11/08/20 Status: Ordered meclizine 25 mg oral tablet 1 tablet = 25 mg, By Mouth, 3 times a day, PRN for dizziness, # 90 tablet, 1 Refills, Maintenance, 11/08/20 10:17:00 EDT, Tablet, [facility] #[id number], 160, cm, 11/08/20 9:35:00 EDT, Height, 42.2, kg, 02/09/20 11:49:00 EST, Dry Weight Start Date: 11/08/20 Status: Ordered mirtazapine 15 mg oral tablet 1 tablet = 15 mg, By Mouth, Daily at bedtime, Finnish, # 30 tablet, 2 Refills, Maintenance, 02/27/21 8:35:00 EST, Tablet, [facility]/pharmacy #[id number], Partial fill upon patient request if [...] 0 Refills, Maintenance, 11/08/20 10:17:00 EDT, Tablet, [facility] #[id number], 160, cm, 11/08/20 9:35:00 EDT, Height, 42.2, kg, 02/09/20 11:49:00 EST, Dry Weight Start Date: 11/08/20 Status: Ordered SUMAtriptan 50 mg oral tablet 1 tablet = 50 mg, By Mouth, Daily, # 18 tablet, 1 Refills, Soft Stop, 11/08/20 10:17:00 EDT, Tablet, [facility] #[id number], 160, cm, 11/08/20 9:35:00 EDT, Height, 42.2, kg, 02/09/20 11:49:00 EST, Dry Weight Start Date: 11/08/20 Status: Ordered Vitamin D3 1000 intl units oral tablet 1 tablet = 25 mcg, By Mouth, Daily, # 90 tablet, 1 Refills, Maintenance, 02/28/21 11:18:00 EST, [facility]/pharmacy #[id number], Partial fill upon patient request if [...]
--- OUTSIDE RECORDS SUMMARY | 2022-10-23 01:16 | XMS_ITS | Continuity of Care Document ---
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 Name Role Phone Rodrigo Rocha DO Primary Care Physician [phone] Encounter [facility] Date(s): 10/19/22 - 10/19/[address] [address]- Discharge Disposition: A-D/C Home Attending Physician: Rodrigo Vargas MD Admitting Physician: Rodrigo Vargas MD Referring Physician: Not on Staff, Referring MD Allergies, Adverse Reactions, Alerts Substance Reaction [...] 12/07/12 Gi douglas 1Admin Note: VIS GIVEN amharic 02/08/08 2Admin Note: vis given dated 10/15/12 Medications Combipatch 0.05 mg-0.14 mg/24 hours transdermal film, extended release 1 patch, Topically, Every Thursday and , # 8 patch, 6 Refills, Maintenance, 01/08/22 20:12:00EDT, [facility]/pharmacy #[id number], Partial fill upon patient request if the prescription is for a schedule IIopioid drug., 1 patch Topically Every Thursday and .. Start Date: 01/08/22 Status: Ordered cyclobenzaprine 7.5 mg oral tablet 1 tablet = 7.5 mg, By Mouth, 3 times a day, PRN for spasm, # 60 tablet, 1 Refills, Maintenance, 05/19/22 13:52:00 EST, Tablet, [facility]/pharmacy #[id number], Partial fill upon patient request if the prescription is for a schedule II opioid drug., 160, cm, ... Start Date: 05/19/22 Status: Ordered diclofenac 1% topical gel See Instructions, APPLY TOPICALLY 4 TIMES A DAY,NOT TO EXCEED 32 GRAMS/DAY BACK, # 100 Gm, 0 Refills, Maintenance, 10/07/22 9:41:00 EDT, [facility] STORE [id number], 25, APPLY TOPICALLY 4 TIMES A DAY,NOT TO EXCEED 32 GRAMS/DAY BACK, 160, cm, 09/10/22 9:25:00 EDT,... Start Date: 10/07/22 Status: Ordered dicyclomine 10 mg oral capsule 1 capsule, By Mouth, 4 times a day, PRN NEEDED FOR MODERATE PAIN, # 120 capsule, 0 Refills, 09/10/22 9:49:00 EDT, [facility]/pharmacy #[id number], 160, cm, 07/11/22 9:44:00 EDT, Height Start Date: 09/10/22 Status: Ordered escitalopram 10 mg oral tablet 1 tablet = 10 mg, By Mouth, Daily, Take half tablet daily for 2 weeks, then 1 tablet daily thereafter Sudanese label please, # 90 tablet, 0 Refills, Maintenance, 02/12/22 11:01:00 EST, Tablet, [facility]/pharmacy #[id number], Partial fill upon patient request i... Start Date: 02/12/22 Stop Date: 05/13/22 Status: Ordered ibuprofen 600 mg oral tablet 600 mg, 1, tablet, By Mouth, Every 6 hours, PRN, # 30 tablet, Refills 0, Tot. Refills 0, Acute 10/26/22 20:00:00 EDT, pain, 10/19/22 16:29:00 EDT, Route to Pharmacy Electronically, [facility]/pharmacy #[id number], Partial fill upon patient request if the prescript... Start Date: 10/19/22 Stop Date: 10/26/22 Status: Ordered MiraLax oral powder for reconstitution = 17 Gm, By Mouth, Daily, Titrate as needed, # 527 Gm, 1 Refills, Maintenance, 07/30/22 9:16:00 EDT, [facility], Partial fill upon patient request if the prescription is for a schedule II opioid drug., 17 Gm By Mouth Daily,Instr:Titrat... Start Date: 07/30/22 Status: Ordered naproxen 375 mg oral tablet 375 mg, 1, tablet, By Mouth, 2 times a day, PRN, # 20 tablet, Refills 1, Tot. Refills 1, Maintenance, for pain, 05/19/22 13:53:00 EST, Route to Pharmacy Electronically, [facility]/pharmacy #[id number], Partial fill upon patient request if the prescription is for a... Start Date: 05/19/22 Status: Ordered Nutritional Supplements See Instructions, # 90 each, Refills 11, Tot. Refills 11, Maintenance, Ensure nutritional supplement drinks DX underweight, ICD R63.6 BMI 16.0, 03/01/21 13:52:00 EST, Supply Start Date: 03/01/21 Status: Ordered oxyCODONE 5 mg oral tablet 5 mg, 1, tablet, By Mouth, Every 6 hours, PRN, for 3 days, # 12 tablet, Refills 0, Tot. Refills 0, Acute 10/22/22 16:29:00 EDT, as needed for pain, 10/19/22 16:29:00 EDT, Route to Pharmacy Electronically, [facility]/pharmacy #[id number], Partial fill upon patient... Start Date: 10/19/22 Stop Date: 10/22/22 Status: Ordered Readi-Cat 2 oral suspension 450 mL = 9 Gm, By Mouth, 2 times a day, Please dispense two 450 mL bottles for a total dose that equals 900 mLs. Drink first bottle [address] and then drink second bottle [address] scan,# 2 each, 0 Refills, Maintenance, 07/23/22 9:18:00... Start Date: 07/23/22 Status: Ordered simethicone 80 mg oral tablet, chewable 80 mg, 1, tablet, Chew, 4 times a day, PRN, # 48 tablet, Refills 0, Tot. Refills 0, Maintenance, asneeded for gas, 09/10/22 9:48:00 EDT, [id number] Partial[facility] upon patient request if the prescription is fo... Start Date: 09/10/22 Status: Ordered SUMAtriptan 50 mg oral tablet 1 tablet = 50 mg, By Mouth, Daily, PRN as needed for migraine headache, may repeat dose in 2 hours if needed, # 30 tablet, 11 Refills, Soft Stop, 05/19/22 13:52:00 EST, Tablet, [facility]/pharmacy #1130, 160, cm, 05/19/22 13:39:00 EST, Height Start Date: 05/19/22 Status: Ordered Truvada 200 mg-300 mg oral tablet 1 tablet, By Mouth, Daily, re-start PreP, # 30 tablet, 11 Refills, Maintenance, 05/19/22 13:52:00 EST, Tablet, [facility]/pharmacy #1130, 1 tablet By Mouth Daily,Instr:re-start PreP, 160, cm, 05/19/22 13:39:00 EST, Height Start Date: 05/19/22 Status: Ordered Vitamin D3 1000 intl units oral tablet 1 tablet = 25 mcg, By Mouth, Daily, # 90 tablet, 1 Refills, Maintenance, 02/12/22 10:33:00 EST, [facility]/pharmacy #[id number], Partial fill upon patient request [...] without mention of status migrainosus Confirmed Active Vitamin D deficiency Confirmed Active Loss of weight Confirmed Active Vital Signs Most recent to oldest [Reference Range]: 1 Height 168 cm (10/19/22 1:39 PM) Weight 52.4 kg (10/19/22 1:39 PM) Oxygen Saturation [94-100 %] 97 % (10/19/22 1:39 PM) Pulse Rate [55-90 bpm] 78 bpm (10/19/22 1:39 PM) Blood Pressure [90-138/55-84 mm Hg] 126/ 70mm Hg (10/19/22 1:39 PM) Respiratory Rate [16-30 br/min] 18 br/mi n (10/19/22 1:39 PM) Temperature [96.8-100.4 DegF] 97.6 DegF (10/19/22 1:39 PM) Mode of Delivery (Oxygen) Room air (10/19/22 1:39 PM) Blood pressure sites Arm, left (10/19/22 1:39 PM) Temperature Route Temporal (10/19/22 1:39 PM) Dry Weight 52.4 kg (10/19/22 1:39 PM) Dry Weight Obtained Via Standing scale (10/19/22 1:39 PM) Social History Social History Type Response Smoking Status Never (less than 100 in lifetime) entered on: 11/08/20 Sex Note * Santhosh Pierson: PERFORM Event Display: Patient Education Leaflets Authored Date: [id number] Physical Therapy Referral ?? 250 ?? This page is FOR PRESCRIBERS Only, ? DO NOT GIVE TO THE PATIENT? Physical Therapy Referral Program for Management of Pain In an effort to reduce narcotic use, some of our ED patients will benefit from a direct referral torab care.?? [facility] will see INSURED patients and has a system in place to avoid sending follow up paperwork to the ED prescribers.? Note: Non-[facility] physical therapy services will probably NOT be able to handle ED generated PT referrals. ?? Patients should still follow up with their PCP as soon as possible regarding their ongoing care. Inform patients that [facility] will discuss insurance when they call.?? Some insurance plans limit the amount of PT a patient can receive each year. ?? Complete the FIRST PAGE of the patient???s referral sheet. [place] or write in diagnosis Modify the timing for treatment, if needed List any major precautions (i.e.?? Non-weight bearing limb), if needed Sign, date and print your name at the bottom ? Physical Therapy Referral Form Patient Instructions: You are being referred to physical therapy.?? This form is your referral and MUST be brought to your appointment. You need to call to set up your appointment. ?? This form can be used at any [facility] location.?? A list of locations is attached.?? 1)?? DIAGNOSIS/ICD-10 (egegik one) Cervicalgia: M54.2 ? Strain of muscle, fascia and tendon at neck level: S16.1XXD? Radiculopathy, cervical region: M54.12? Mid back pain: M54.9 ? Low back pain:?? M54.5 Strain of muscle, fascia and tendon of lower back: S39.012D Radiculopathy, lumbosacral region: M54.17 Other:? 2)? [? ]? Evaluate and Treat 2 Times/Week for 4 weeks as needed [? ]?Other: 3)? [? ]? No Precautions [? ]?Precautions: ?? I hereby certify these services as medically necessary for the patient???s plan of care. Physician???s Signature Date Physician Name (printed)? Locations You can call any location below.?? Tell them you were seen in a [facility] Emergency Department and have a referral form.?? Remember to bring your referral form with you to the appointment. LUIS MANUEL Bernstein [id number]? LUIS MANUEL Dubon [address] [address] [facility], [address]? [address] [place] [address] ? LUIS MANUEL Verma ? LUIS MANUEL Cui [address] [place] [address]? [address] ? [place] [address]? [place] [address] ? [place] [address]? [facility] [address] ? * Santhosh Pierson: PERFORM Event Display: Patient Education Leaflets Authored Date: [id number] [place] ?? [id number] Dolor del nervio ci??izzy El dolor del nervio ci??izzy es kimberly afecci??n que produce dolor en la parte baja de la espalda que se propaga a los gl??teos, la cadera y la pierna. En ocasiones, podr??a doler la pierna sin que hayadolor en la espalda. El dolor del nervio ci??izzy se produce cuando un nervio lazaro est?? irritado o algo lo presiona al salir del conducto vertebral en la parte baja de la espalda. Mcrae suele suceder cuando un disco vertebral cercano est?? roto o deformado y hace presi??n sobre el nervio. El dolor del nervio ci??izzy tambi??n puede deberse al estrechamiento del conducto vertebral (estenosis lazaro) o a un espasmo del m??sculo del gl??mirtha por donde pasa el nervio ci??izzy (m??sculo piriforme). Tambi??n se conoce james radiculopat??a lumbar . El dolor del nervio ci??izzy puede aparecer despu??s de kimberly torcedura o flexi??n repentina y forzada, james en un accidente de autom??attila. Tambi??n puede aparecer despu??s de ayla realizado un movimiento simple olga extra??o. En ambos casos, tambi??n suele suceder un espasmo muscular. El espasmo muscular hace que el dolor sea peor. Un proveedor de atenci??n m??dica le diagnosticar?? el dolor del nervio ci??izzy a partir de bob s??ntomas y un examen f??sico. A menos que haya tenido kimberly lesi??n producto de un accidente de autom??attila o kimberly ca??da, por lo general, no se suelen hacer radiograf??as en phillip momento. Mcrae se debe a que los nervios y los discos de crump espalda no pueden observarse en kimberly radiograf??a. Si el proveedor sospecha que hay un nervio comprimido en funci??n de bob antecedentes o de la exploraci??n, deber?? programar kimberly resonancia magn??shakira. Los estudios de conducci??n nerviosa y la electromiograf??a sonpruebas en los nervios que tambi??n pueden ayudar a detectar la causa del dolor en los nervios. Lossignos de nervio comprimido incluyen la p??rdida de fuerza o reflejos en kimberly pierna. La mayor??a de los casos de dolor del nervio ci??izzy se alivian con medicamentos, ejercicios, y fisioterapia. Si los s??ntomas persisten despu??s del tratamiento m??dico, quiz?? necesite cirug??a o inyecciones en la parte baja de la espalda. Mcrae sunil??a seg??n la gravedad de los s??ntomas. Cuidados en el hogar Siga estos consejos: ??? [place] pronto james le sea posible, comience a sentarse o caminar. Mcrae le ayudar?? a evitar los problemas que se producen por estar mucho tiempo en cama. ??? Mientras est?? en la cama, intente encontrar kimberly posici??n que le resulte c??moda. Lo mejor es utilizar un colch??n firme. Intente acostarse de espalda con almohadas debajo de las rodillas. Tambi??n puede probar recost??ndose de lado con las rodillas flexionadas hacia crump pecho y kimberly almohada entre las rodillas. ??? Nopermanezca sentado por per??odos prolongados. Eso causa m??s tensi??n en la parte inferior de la espalda que estar de pie o caminar. ??? Use el calor de kimberly ducha caliente, un ba??o caliente en la oscar o kimberly almohadilla t??rmica para aliviar el dolor. El masaje tambi??n puede ayudarle. Asimismo, puede probar el uso de kimberly compresa de hielo. Para hacer crump propia compresa de hielo, coloque cubos dehielo en kimberly bolsa pl??stica que pueda cerrarse. Envuelva la bolsa en kimberly toalla delgada. Pruebe tanto el calor james el fr??o para ciaran cu??l le funciona mejor. Use el m??todo que mejor resultado le d? ? tala 20 minutos varias veces al d??a. ??? Puede usar paracetamol o ibuprofeno para aliviar el dolor, a menos que le hayan recetado otro medicamento para calmar el dolor. Nota: Si tiene kimberly enfermedad cr??vijay del h??gado o de los ri??ones, consulte al proveedor de atenci??n m??dica antes de usar estos medicamentos. Tambi??n hable con crump proveedor si oates tenido kimberly ??lcera de est??sangita o hemorragia en el tubo digestivo. ??? Utilice un m??todo seguro para levantar objetos. No levante nada quepese m??s de lo indicado hasta que el dolor haya desaparecido por completo. ?? Atenci??n de seguimiento Realice el seguimiento con crump proveedor de atenci??n m??dica o seg??n lo que phillip le haya indicado.Es posible que necesite fisioterapia o m??s pruebas. Si le harrell hecho radiograf??as, las evaluar?? un radi??logo. Le informar??n de los nuevos resultadosque puedan afectar crump atenci??n m??dica. ?? Cu??ndo buscar atenci??n m??dica Llame a crump proveedor de atenci??n m??dica de inmediato ante cualquiera de las siguientes situaciones: ??? Dolor que empeora incluso despu??s de lamar el medicamento recetado ??? Debilidad o entumecimiento en kimberly o ambas piernas o en la cadera ??? Sensaci??n de entumecimiento en la heriberto genital o laingle ??? No puede controlar bob intestinos o crump vejiga ??? Fiebre de 100.4?F??(38?C) o superior, o seg??n le haya indicado el proveedor ??? Enrojecimiento o hinchaz??n en la espalda o la columna vertebral? Last Reviewed Date: 2021 ?? [id number] [employer]. Todos los derechos reservados. Esta informaci??n no pretende sustituir la atenci??n m??dica profesional. S??lo crump m??dico puede diagnosticar y tratar un problema de ronnie. ?? Patient Care team information Care Team Personnel Name: Rodrigo Rocha DO Position: [facility] Resident Member Role: PCP Address: Address: [address] [place] [id number]- Name: Santhosh Pierson Position: [facility] Associate Professional Member Role: ED Physician Ship[employer] Address: Address: [address] [place] [address] [place] [address]- Name: Seda Cantu RN Position: [facility] ED RN W/OE and Tasks Member Role: Patient Care Provider Name: Rodrigo Vargas MD Position: [facility] ED Medicine MD Member Role: Admitting Physician Address: Address: [address] [place] [address] [place] [address]- Care Team Related Persons Name: DANA MARTIN Address: home [address] [place] [address] Name: TERENCE MARTIN Name: CHAVA VASQUEZ Address: home [address] [place] [address] Name: JONES TAPIA
--- OUTSIDE RECORDS SUMMARY | 2022-10-23 01:16 | XMS_ITS | Continuity of Care Document ---
Author Name Unknown Organization [facility] Address [address] [place] [address]- Care Team Providers Care Integration Architect Name Role Phone Ezio Cedeño MD Primary Care Physician Encounter [facility] Date(s): 02/09/20 - 03/10/20 [facility] [address] [place], [place] [address] Attending Physician: Janet Lundberg Admitting Physician: AdmJanet wynn Referring Physician: Admtr ArHarris Allergies, Adverse Reactions, Alerts Substance Reaction [...] given dated 10/15/12 2Admin Note: VIS GIVEN kazakh 02/08/08 Medications dicyclomine 10 mg oral capsule 1 capsule = 10 mg, By Mouth, 4 times a day, PRN Pain , Moderate, for 30 days, # 60 capsule, 1 Refills, Hard Stop 04/09/20 17:32:00 EST, 02/09/20 17:32:00 EST, Capsule, [facility] #[id number], 160, cm, 02/09/20 11:43:00 EST, Height, 42.2, kg, 11/1... Start Date: 02/09/20 Stop Date: 04/09/20 Status: Ordered dicyclomine 10 mg oral capsule 1 capsule = 10 mg, By Mouth, 4 times a day, PRN Pain , Moderate, # 60 capsule, 1 Refills, Maintenance, 02/24/20 12:26:00 EST, Capsule, [facility]/pharmacy #[id number], 160, cm, 02/09/20 11:43:00 EST, Height, 42.2, kg, 02/09/20 11:49:00 EST, Dry Weight Start Date: 02/24/20 Stop Date: 04/24/20 Status: Ordered dicyclomine 10 mg oral capsule [...] 0 Refills, Maintenance, 03/05/20 16:16:00 EST, Tablet, [facility]/pharmacy #[id number], 160, cm, 02/09/20 11:43:00 EST, Height, 42.2, kg, 02/09/20 11:49:00 EST, Dry Weight Start Date: 03/05/20 Status: Ordered hydroquinone 2% topical cream 1 application, Topically, 2 times a day, [place], apply to dark lesions on face, use sunscreen withuse, # 28 Gm, 1 Refills, Maintenance, 10/06/18 13:14:56 EDT, Cream, 1 application Topically 2 timesa day,Instr:[place], apply to dark lesions on face,... Start Date: 10/06/18 Status: Ordered Lactaid 3000 units oral tablet 3 tablet = 9,000 units, By Mouth, 3 times a day with meals, # 120 tablet, 0 Refills, Maintenance, 12/08/19 14:49:00 EDT, Tablet, [facility] #[id number], 160, cm, 09/26/19 13:56:00 EDT, Height, 47.8, [...] mL, 0 Refills, Maintenance,12/08/19 14:51:00 EDT, Suspension, [facility] #[id number], 160, cm, 09/26/19 13:56:00 EDT, Height, 47.8, [...] mL, 0 Refills, Maintenance, 12/26/19 14:02:00 EDT, [facility] #[id number],Drink 240mL every 10-15 minutes until first half i... Start Date: 12/26/19 Status: Ordered pantoprazole 20 mg oral delayed release tablet 1 tablet = 20 mg, By Mouth, Daily, # 30 tablet, 4 Refills, Maintenance, 02/09/20 17:32:00 EST, CR Tablet, 160, cm, 02/09/20 11:43:00 EST, Height, 42.2, kg, 02/09/20 11:49:00 EST, Dry Weight Start Date: 02/09/20 Status: Ordered simethicone 80 mg oral tablet 1 tablet = 80 mg, Chew, 3 times a day after meals, PRN as needed for gas, # 60 tablet, 0 Refills, Maintenance, 04/18/19 9:52:00 EST, Tablet, [facility] #[id number], 160, cm, 04/18/19 9:08:00 EST, Height, 47.8, kg, 04/04/19 11:54:00 EST, Dry Weight Start Date: 04/18/19 Status: Ordered SUMAtriptan 50 mg oral tablet 1 tablet = 50 mg, By Mouth, Daily, # 18 tablet, 1 Refills, Soft Stop, 03/05/20 16:16:00 EST, Tablet, [facility]/pharmacy #[id number], 160, cm, 02/09/20 11:43:00 EST, Height, 42.2, kg, 02/09/20 11:49:00 EST, Dry Weight Start Date: 03/05/20 Status: Ordered Truvada 200 mg-300 mg oral tablet 1 tablet, By Mouth, Daily, # 30 tablet, 0 Refills, Maintenance, 04/19/19 13:05:00 EST, Tablet, [facility] #[id number], 1 tablet By Mouth Daily, 160, cm, 04/18/19 9:08:00 EST, Height, 47.8, kg, 04/04/19 11:54:00 EST, Dry Weight Start Date: 04/19/19 Status: Ordered Tylenol 325 mg oral tablet 650 mg, 2, tablet, By Mouth, Every 6 hours, PRN, not to exceed 4000 mg/day, [place] label, # 120 tablet, Refills 1, Tot. Refills 1, Maintenance, Pain , Moderate, 03/05/20 16:16:00 EST, Route to Pharmacy Electronically, [facility]/pharmacy #[id number], Partial fill... Start Date: 03/05/20 Status: Ordered Vitamin D3 1000 intl units oral capsule 1 capsule = 1,000 International_Units, By Mouth, Daily, # 100 capsule, 0 Refills, Maintenance, 04/18/19 9:51:00 EST, Capsule, [facility] #[id number], 160, cm, 04/18/19 9:08:00 EST, Height, 47.8,kg, [...]
--- OUTSIDE RECORDS SUMMARY | 2022-10-23 01:16 | XMS_ITS | Continuity of Care Document ---
Author Name Unknown Organization [facility] Adult Medicine Address [address] [place] [address]- Care Team Providers Care Community Manager Name Role Phone Rodrigo Rocha DO Primary Care Physician Encounter [facility] Date(s): 09/10/22 - 10/10/22 [facility] [address] [place] [address]- Attending Physician: Janet Lundberg Admitting Physician: AdmtrJanet Referring Physician: Admtr, ArHarris Allergies, Adverse Reactions, [...] 12/07/12 Gi douglas 1Admin Note: VIS GIVEN occitan 02/08/08 2Admin Note: vis given dated 10/15/12 Medications Combipatch 0.05 mg-0.14 mg/24 hours transdermal film, extended release 1 patch, Topically, Every Thursday and , # 8 patch, 6 Refills, Maintenance, 01/08/22 20:12:00EDT, [facility]/pharmacy #[id number], Partial fill upon patient request if the prescription is for a schedule IIopioid drug., 1 patch Topically Every Thursday and .. Start Date: 01/08/22 Status: Ordered cyclobenzaprine 7.5 mg oral tablet 1 tablet = 7.5 mg, By Mouth, 3 times a day, PRN for spasm, # 60 tablet, 1 Refills, Maintenance, 05/19/22 13:52:00 EST, Tablet, [facility], Partial fill upon patient request if the prescription is for a schedule II opioid drug., 160, cm, ... Start Date: 05/19/22 Status: Ordered diclofenac 1% topical gel See Instructions, APPLY TOPICALLY 4 TIMES A DAY,NOT TO EXCEED 32 GRAMS/DAY BACK, # 100 Gm, 0 Refills, Maintenance, 10/07/22 9:41:00 EDT, [facility]ORE [id number], 25, APPLY TOPICALLY 4 TIMES A DAY,NOT TO EXCEED 32 GRAMS/DAY BACK, 160, cm, 09/10/22 9:25:00 EDT,... Start Date: 10/07/22 Status: Ordered dicyclomine 10 mg oral capsule 1 capsule, By Mouth, 4 times a day, PRN NEEDED FOR MODERATE PAIN, # 120 capsule, 0 Refills, 09/10/22 9:49:00 EDT, [facility], 160, cm, 07/11/22 9:44:00 EDT, Height Start Date: 09/10/22 Status: Ordered escitalopram 10 mg oral tablet 1 tablet = 10 mg, By Mouth, Daily, Take half tablet daily for 2 weeks, then 1 tablet daily thereafter Belizean label please, # 90 tablet, 0 Refills, Maintenance, 02/12/22 11:01:00 EST, Tablet, [facility]/pharmacy #1130, Partial fill upon patient request i... Start Date: 02/12/22 Stop Date: 05/13/22 Status: Ordered MiraLax oral powder for reconstitution = 17 Gm, By Mouth, Daily, Titrate as needed, # 527 Gm, 1 Refills, Maintenance, 07/30/22 9:16:00 EDT, [facility], Partial fill upon patient request if the prescription is for a schedule II opioid drug., 17 Gm By Mouth Daily,Instr:Titrat... Start Date: 07/30/22 Status: Ordered naproxen 375 mg oral tablet 375 mg, 1, tablet, By Mouth, 2 times a day, PRN, # 20 tablet, Refills 1, Tot. Refills 1, Maintenance, for pain, 05/19/22 13:53:00 EST, Route to Pharmacy Electronically, [facility]/pharmacy #[id number], Partial fill upon patient request if the prescription is for a... Start Date: 05/19/22 Status: Ordered Nutritional Supplements See Instructions, # 90 each, Refills 11, Tot. Refills 11, Maintenance, Ensure nutritional supplement drinks DX underweight, ICD R63.6 BMI 16.0, 03/01/21 13:52:00 EST, Supply Start Date: 03/01/21 Status: Ordered Readi-Cat 2 oral suspension 450 [...] 09/10/22 9:48:00 EDT, Route to Pharmacy Electronically, [facility]/pharmacy #[id number], Partialfill upon patient request if the [...] 100 in lifetime) entered on: 11/08/20 Sex Laboratory * Comfort Campbell: PERFORM Event Display: Laboratory Results Scanned Authored Date: [id number] Note * Suni Nagy: PERFORM, SIGN, VERIFY Event Display: Patient Education/Instruction Authored Date: [id number] [facility] Clinical Summary Person Information Visit Date 10/20/2017 11:20 AM Name KATERIN COLEMAN Age 46 Years 1970 12:00 AM PCP Naun BATRES, Romel Ma PCP Sex Female Race White Ethnicity / Language Belizean You can now view a summary of your hospital visit from the comfort of your home through a free online portal called VDP. VDP is a website that allows you to securely view your medical information including discharge summary, medications and follow-up visits. You can also send a secure electronic message to your doctor???s office to request appointments, renew medicationsor just ask a question. You can enroll at [email or web address] or register during your next office visit. Smoking can increase your chances of developing chronic health problems and can cause harmful effects to other family members in your house. If you smoke, you are strongly encouraged to quit. Please call the [place] Smokers??? Helpline at 0-921-SWTBNOW (or ) or log on to [email or web address] for more information. The National Suicide Prevention Hotline is available 13/10 if you or someone you know needs to find a reason to keep living. By calling 8-005-856-xsmh (5382) you'll be connected to a skilled, trained counselor at a crisis center in your area. Reason for Visit: Allergy Info: penicillins; penicillin Smoking Status Never smoker Vital Signs Height Weight BMI Blood Pressure / Temperature Pulse Rate Respiratory Rate 02 Sat Mode of Delivery / Medication Information Acetaminophen (Tylenol Extra Strength 500 mg oral tablet) 1 tab(s) Oral every 4 hours as needed as needed for pain. Label in Belizean. Refills: 0. Diclofenac Topical (diclofenac 1% topical gel) 1 marisa Topically 4 times a day as needed for pain. Label in Belizean. Refills: 0. Dicyclomine (dicyclomine 20 mg oral tablet) 1 tab(s) Oral 4 times a day for 30 Days. Refills: 1. Fluticasone Nasal (Flonase 50 mcg/inh nasal spray) 1 spray(s) Nares, Both twice a day. Refills: 0. Loratadine (loratadine 10 mg oral capsule) 1 capsule Oral Daily. Refills: 2. Omeprazole (omeprazole 40 mg oral enteric coated capsule) 1 capsule Oral Daily. Refills: 2. Sumatriptan (SUMAtriptan 50 mg oral tablet) 1 tab(s) Oral Daily as needed for migraine headache for10 Days. may repeat dose after 2 hours up to a maximum of 2. Refills: 1. Tuberculin Purified Protein Derivative (tuberculin purified protein derivative 5 tu/0.1 ml intradermal solution) 0.1 Milliliter Intradermal once. PPD planted Left FA 06/30/17 at 1015am Lot [id number] exp 08/20/2018. Refills: 0. Future Orders No future orders Orders Completed this Visit No visit orders documented Problem List Problem Migraine with aura, without mention of intractable migraine without mention of status migrainosus 28-MAY-2013 07:27:07 Helicobacter-associated disease Epigastric pain Decrease in appetite Weight decreased Chronic constipation Fibroadenoma of breast Diagnosis Procedures No Procedures Documented If the following labs have been performed in the last year, the most recent result is displayed below. Diagnostic Results Lab Result Value Date Lead Hemoglobin A1C LDL HDL Triglycerides Total Cholesterol Disclaimer: The information provided is of a general nature and is intended to be used in conjunction with the recommendations and advice of your health care practitioner. Every effort has been made to ensure that the information provided is accurate and complete at the time it is provided to you however, as your needs change, or, as new information becomes available, different or additional instructions may be required. If you have questions, please consult with your primary care provider or pharmacist, as appropriate. This information is not intended to serve as substitution for assessment and evaluation by a qualified health care provider. If you do not have a primary care provider, you may find a [facility] provider by calling [facility]uru at [phone]. For information about the plan of care including goals and instructions for your diagnosis, please see the patient education orders section of this document. Patient Visit Summary: Future Appointments: Type Location Start [facility] Physical [facility] 11/18/2017 9:00 AM 11/18/2017 9:40 AM Pending Return [facility] 12/16/2017 3:15 PM 12/16/2017 3:45 PM Pending Follow-Up Instructions With: Address: When: [facility] YE[facility] 10/09/2010 1:41 PM Comments: PPD READING Patient Education Materials Additional Instructions: * Kavita Ramírez: PERFORM, SIGN, VERIFY Event Display: Patient Education/Instruction Authored Date: [id number] [employer] [facility] Clinical Summary Person Information Name KATERIN COLEMAN Age 39 Years 1970 12:00 AM PCP Kayden Reyes MD PCP Reason for Visit: Allergy Info: penicillin Vital Signs Height Weight BMI Blood Pressure / Temperature Pulse Rate Respiratory Rate 02 Sat Mode of Delivery / Medication Information Ibuprofen (ibuprofen 600 mg oral tablet) 1 tablet, Oral, 4 times a day, 20 tablet, Refills: 0 Lidocaine Topical (Lidoderm 5% film) 1 patch, Topically, Tomorrow, (remove patch(s) after 12 hours), 30 patch, Refills: 1 Naproxen (naproxen 500 mg oral enteric coated tablet) 1 tablet, Oral, twice a day, with food, 60 tablet, Refills: 0 Tramadol (Ultram 50 mg oral tablet) 1 tablet, Oral, every 4 hours, 20 tablet, As Needed, Pain, Refills: 0 Tuberculin Purified Protein Derivative (tuberculin purified protein derivative 5 tu/0.1 ml intradermal solution) 5 units, Intradermal, once, planted right forearm on 10/07/10, lot# [id number], exp 01/23/12, to be read in 48-72hrs, 1 each, Refills: 0 Problem List Date Problem If the following labs have been performed in the last year, the most recent result is displayed below. Diagnostic Results Lab Result Value Date Lead Hemoglobin A1C LDL HDL Triglycerides Total Cholesterol Disclaimer: The information provided is of a general nature and is intended to be used in conjunction with the recommendations and advice of your health care practitioner. Every effort has been made to ensure that the information provided is accurate and complete at the time it is provided to you however, as your needs change, or, as new information becomes available, different or additional instructions may be required. If you have questions, please consult with your primary care provider or pharmacist, as appropriate. This information is not intended to serve as substitution for assessment and evaluation by a qualified health care provider. If you do not have a primary care provider, you may find a [facility] provider by calling [facility] Health Link at [phone]. Patient Education Information Follow-up Details: With: Address: When: [facility] EMILY BARRIENTOS 10/09/2010 13:41:00 Comments: PPD READING Patient Education Material: Patient Care team information Care Team Personnel Name: Rodrigo Rocha DO Position: S Resident Member Role: PCP Address: Address: [address] [place] [address]- Care Team Related Persons Name: DANA MARTIN Address: home [address] [place] [id number] Name: TERENCE MARTIN Name: CHAVA VASQUEZ Address: home [address] [place] [address] Name: JONES TAPIA
--- OUTSIDE RECORDS SUMMARY | 2022-10-23 01:16 | XMS_ITS | Continuity of Care Document ---
Author Name Unknown Organization [facility] Address [address] [place] [id number]- Care Team Providers Care Bulk System Operator Name Role Phone Davidson BATRES, Ezio Laguerre Primary Care Physician [phone] Encounter [facility] Date(s): 02/01/20 - 05/30/[address] [address] Attending Physician: Kathryn BATRES, Myla Admitting Physician: Myla Peralta MD Allergies, Adverse Reactions, Alerts Substance Reaction [...] given dated 10/15/12 2Admin Note: VIS GIVEN estonian 02/08/08 Medications dicyclomine 10 mg oral capsule 1 capsule = 10 mg, By Mouth, 4 times a day, PRN Pain , Moderate, # 60 capsule, 1 Refills, Maintenance, 04/26/20 8:18:00 EST, [facility], [facility], 160, cm, 02/09/20 11:43:00 EST, Height, 42.2,kg, 02/09/20 11:49:00 EST, Dry Weight Start Date: 04/26/20 Stop Date: 06/25/20 Status: Ordered dicyclomine 10 mg oral capsule See Instructions, TAKE 1 CAPSULE BY MOUTH FOUR TIMES A DAY NEEDED FOR PAIN, # 60 capsule, 1 Refills, Maintenance, [facility], 160, cm, 02/09/20 11:43:00 EST, Height, 42.2, [...] 0 Refills, Maintenance, 03/05/20 16:16:00 EST, Tablet, [facility]/pharmacy #1130, 160, cm, 02/09/20 11:43:00 EST, Height, 42.2, kg, 02/09/20 11:49:00 EST, Dry Weight Start Date: 03/05/20 Status: Ordered hydroquinone 2% topical cream 1 application, Topically, 2 times a day, Eritrean, apply to dark lesions on face, use sunscreen withuse, # 28 Gm, 1 Refills, Maintenance, 10/06/18 13:14:56 EDT, Cream, 1 application Topically 2 timesa day,Instr:Eritrean, apply to dark lesions on face,... Start Date: 10/06/18 Status: Ordered Lactaid 3000 units oral tablet 3 tablet = 9,000 units, By Mouth, 3 times a day with meals, # 120 tablet, 0 Refills, Maintenance, 12/08/19 14:49:00 EDT, Tablet, [facility] #[id number], 160, cm, 09/26/19 13:56:00 EDT, Height, 47.8, [...] mL, 0 Refills, Maintenance,12/08/19 14:51:00 EDT, Suspension, [facility] #[id number], 160, cm, 09/26/19 13:56:00 EDT, Height, 47.8, [...] mL, 0 Refills, Maintenance, 12/26/19 14:02:00 EDT, [facility] #[id number],Drink 240mL every 10-15 minutes until first half [...] 0 Refills, Maintenance, 04/18/19 9:52:00 EST, Tablet, [facility] #10125, 160, cm, 04/18/19 9:08:00 EST, Height, 47.8, kg, 04/04/19 11:54:00 EST, Dry Weight Start Date: 04/18/19 Status: Ordered SUMAtriptan 50 mg oral tablet 1 tablet = 50 mg, By Mouth, Daily, # 18 tablet, 1 Refills, Soft Stop, 12/14/20 16:16:00 EST, Tablet, [facility]/pharmacy #1130, 160, cm, 02/09/20 11:43:00 EST, Height, 42.2, kg, 02/09/20 11:49:00 EST, Dry Weight Start Date: 03/05/20 Status: Ordered Truvada 200 mg-300 mg oral tablet 1 tablet, By Mouth, Daily, re-start PreP, # 30 tablet, 3 Refills, Maintenance, 05/29/20 14:58:00 EST, Tablet, [facility]/pharmacy #1130, 1 tablet By Mouth Daily,Instr:re-start PreP, 160, cm, 02/09/20 11:43:00 EST, Height, 42.2, kg, 02/09/20 11:49:00 EST, Dry... Start Date: 05/29/20 Status: Ordered Truvada 200 mg-300 mg oral tablet 1 tablet, By Mouth, Daily, # 30 tablet, 0 Refills, Maintenance, 04/19/19 13:05:00 EST, Tablet, [facility] #[id number], 1 tablet By Mouth Daily, 160, cm, 04/18/19 9:08:00 EST, Height, 47.8, kg, 04/04/19 11:54:00 EST, Dry Weight Start Date: 04/19/19 Status: Ordered Tylenol 325 mg oral tablet 650 mg, 2, tablet, By Mouth, Every 6 hours, PRN, not to exceed 4000 mg/day, Eritrean label, # 120 tablet, Refills 1, Tot. Refills 1, Maintenance, Pain , Moderate, 03/05/20 16:16:00 EST, Route to Pharmacy Electronically, [facility]/pharmacy #1130, Partial fill... Start Date: 03/05/20 Status: Ordered Vitamin D3 1000 intl units oral capsule 1 capsule = 1,000 International_Units, By Mouth, Daily, # 100 capsule, 0 Refills, Maintenance, 04/18/19 9:51:00 EST, Capsule, [facility] #[id number], 160, cm, 04/18/19 9:08:00 EST, Height, 47.8,kg, [...]
--- OUTSIDE RECORDS SUMMARY | 2022-10-23 01:16 | XMS_ITS | Continuity of Care Document ---
Author Name Unknown Organization [facility] Address Unknown Care Team Providers Care Business Project Analyst Name Role Phone Ezio Cedeño MD Primary Care Physician Encounter [facility] [id number] Date(s): 04/26/21 - 05/26/21 [facility] Attending Physician: Janet Lundberg Admitting Physician: Janet [...] 12/07/12 Gi douglas 1Admin Note: VIS GIVEN colombian 02/08/08 2Admin Note: vis given dated 10/15/12 Medications dicyclomine 10 mg oral capsule 1 capsule, By Mouth, 4 times a day, PRN NEEDED FOR MODERATE PAIN, # 120 capsule, 1 Refills, [facility], 160, cm, 04/22/21 10:31:00 EST, Height, 42.2, kg, 02/09/20 11:49:00 EST, Dry Weight Start Date: 05/21/21 Status: Ordered hydroquinone 2% topical cream 1 application, Topically, 2 times a day, Cook Islander, apply to dark lesions on face, use sunscreen withuse, # 28 Gm, 1 Refills, Maintenance, 11/08/20 10:16:00 EDT, Cream, [facility] #[id number], 1 application Topically 2 times a day,Instr:Cook Islander, a... Start Date: 11/08/20 Status: Ordered meclizine 25 mg oral tablet 1 tablet = 25 mg, By Mouth, 3 times a day, PRN for dizziness, # 90 tablet, 1 Refills, Maintenance, 11/08/20 10:17:00 EDT, Tablet, [facility] #75938, 160, cm, 11/08/20 9:35:00 EDT, Height, 42.2, kg, 02/09/20 11:49:00 EST, Dry Weight Start Date: 11/08/20 Status: Ordered MiraLax oral powder for reconstitution = 17 Gm, By Mouth, Daily, Titrate as needed, # 527 Gm, 1 Refills, Maintenance, 04/22/21 10:51:00 EST, [facility], Partial fill upon patient request if the prescription is for a schedule II opioid drug., 17 Gm By Mouth Daily,Instr:Titrate as ne... Start Date: 04/22/21 Status: Ordered mirtazapine 15 mg oral tablet 1 tablet = 15 mg, By Mouth, Daily at bedtime, Cook Islander, # 30 tablet, 2 Refills, Maintenance, 02/27/21 [...] mL, 0 Refills, Maintenance, 04/22/21 10:50:00 EST, [facility]/pharmacy #1130, Partial fill upon patient [...] 0 Refills, Maintenance, 11/08/20 10:17:00 EDT, Tablet, [facility] #47913, 160, cm, 11/08/20 9:35:00 EDT, Height, 42.2, kg, 02/09/20 11:49:00 EST, Dry Weight Start Date: 11/08/20 Status: Ordered SUMAtriptan 50 mg oral tablet 1 tablet = 50 mg, By Mouth, Daily, # 18 tablet, 1 Refills, Soft Stop, 11/08/20 10:17:00 EDT, Tablet, [facility] #86279, 160, cm, 11/08/20 9:35:00 EDT, Height, 42.2, kg, 02/09/20 11:49:00 EST, Dry Weight Start Date: 11/08/20 Status: Ordered Truvada 200 mg-300 mg oral tablet 1 tablet, By Mouth, Daily, re-start PreP, # 30 tablet, 6 Refills, Maintenance, 05/14/21 8:00:00 EST, Tablet, [facility]/pharmacy #1130, 1 tablet By Mouth [...]
--- OUTSIDE RECORDS SUMMARY | 2022-10-23 01:16 | XMS_ITS | Continuity of Care Document ---
Author Name Unknown Organization [facility] Address [address] [place] [address]- Care Team Providers Care Karate Instructor Name Role Phone Davidson BATRES, Ezio Laguerre Primary Care Physician [facility] Date(s): 02/07/21 - 03/10/21 [facility] [address] [place] [id number] Attending Physician: Topher Austin MD Admitting Physician: Topher Austin MD Allergies, Adverse Reactions, Alerts Substance Reaction [...] 12/07/12 Gi douglas 1Admin Note: VIS GIVEN maori 02/08/08 2Admin Note: vis given dated 10/15/12 Medications dicyclomine 10 mg oral capsule See Instructions, TAKE ONE CAPSULE BY MOUTH FOUR TIMES DAILY, # 120 capsule, 1 Refills, Soft Stop, 11/08/20 10:17:00 EDT, [facility] #[id number], 160, cm, 11/08/20 9:35:00 EDT, Height, 42.2, kg,02/09/20 11:49:00 EST, Dry Weight Start Date: 11/08/20 Status: Ordered dicyclomine 10 mg oral capsule 1 capsule = 10 mg, By Mouth, 4 times a day, # 120 capsule, 1 Refills, Maintenance, 02/21/21 13:02:00 EST, Capsule, [facility]/pharmacy #1130, Partial fill upon patient request if the prescription is for a schedule II opioid drug., 160, cm, 11/08/20 9:35:00 E... Start Date: 02/21/21 Stop Date: 04/22/21 Status: Ordered hydroquinone 2% topical cream 1 application, Topically, 2 times a day, Stateless, apply to dark lesions on face, use sunscreen withuse, # 28 Gm, 1 Refills, Maintenance, 11/08/20 10:16:00 EDT, Cream, [facility] #[id number], 1 application Topically 2 times a day,Instr:Stateless, a... Start Date: 11/08/20 Status: Ordered meclizine 25 mg oral tablet 1 tablet = 25 mg, By Mouth, 3 times a day, PRN for dizziness, # 90 tablet, 1 Refills, Maintenance, 11/08/20 10:17:00 EDT, Tablet, [facility] #46160, 160, cm, 11/08/20 9:35:00 EDT, Height, 42.2, kg, 02/09/20 11:49:00 EST, Dry Weight Start Date: 11/08/20 Status: Ordered mirtazapine 15 mg oral tablet 1 tablet = 15 mg, By Mouth, Daily at bedtime, Stateless, # 30 tablet, 2 Refills, Maintenance, 02/27/21 8:35:00 EST, Tablet, [facility]/pharmacy #1130, Partial fill upon patient request [...] 0 Refills, Maintenance, 11/08/20 10:17:00 EDT, Tablet, [facility] #68679, 160, cm, 11/08/20 9:35:00 EDT, Height, 42.2, kg, 02/09/20 11:49:00 EST, Dry Weight Start Date: 11/08/20 Status: Ordered SUMAtriptan 50 mg oral tablet 1 tablet = 50 mg, By Mouth, Daily, # 18 tablet, 1 Refills, Soft Stop, 11/08/20 10:17:00 EDT, Tablet, [facility] #04082, 160, cm, 11/08/20 9:35:00 EDT, Height, 42.2, kg, 02/09/20 11:49:00 EST, Dry Weight Start Date: 11/08/20 Status: Ordered Vitamin D3 1000 intl units oral tablet 1 tablet = 25 mcg, By Mouth, Daily, # 90 tablet, 1 Refills, Maintenance, 02/28/21 11:18:00 EST, [facility]/pharmacy #1130, Partial fill upon patient request [...]
--- OUTSIDE RECORDS SUMMARY | 2022-10-23 01:16 | XMS_ITS | Continuity of Care Document ---
Author Name Unknown Organization [facility] Address [address] [place] [address]- Care Team Providers Care Natural Gas Plant Supervisor Name Role Phone Davidson BATRES, Ezio Laguerre Primary Care Physician [place] [facility] 06/06/20 - 07/06/20 [facility] [address], [place] [address] Allergies, Adverse Reactions, Alerts Substance Reaction Severity [...] given dated 10/15/12 2Admin Note: VIS GIVEN english 02/08/08 Medications dicyclomine 10 mg oral capsule See Instructions, TAKE 1 CAPSULE BY MOUTH FOUR TIMES A DAY NEEDED FOR PAIN, # 60 capsule, 1 Refills, Maintenance, [id number], 160, cm, 02/09/20 11:43:00 EST, Height, 42.2, kg, 02/09/20 11:49:00 EST, Dry Weight Start Date: 04/25/20 Status: Ordered dicyclomine 10 mg oral capsule 1 capsule = 10 mg, By Mouth, 4 times a day, PRN Pain , Moderate, # 60 capsule, 5 Refills, Maintenance, 07/04/20 11:41:00 EDT, [facility], [id number], 160, cm, 07/04/20 8:39:00 EDT, Height, [...] 0 Refills, Maintenance, 03/05/20 16:16:00 EST, Tablet, [facility]/pharmacy #[id number], 160, cm, 02/09/20 11:43:00 EST, Height, 42.2, kg, 02/09/20 11:49:00 EST, Dry Weight Start Date: 03/05/20 Status: Ordered hydroquinone 2% topical cream 1 application, Topically, 2 times a day, Bolivian, apply to dark lesions on face, use sunscreen withuse, # 28 Gm, 1 Refills, Maintenance, 10/06/18 13:14:56 EDT, Cream, 1 application Topically 2 timesa day,Instr:Bolivian, apply to dark lesions on face,... Start Date: 10/06/18 Status: Ordered Lactaid 3000 units oral tablet 3 tablet = 9,000 units, By Mouth, 3 times a day with meals, # 120 tablet, 0 Refills, Maintenance, 12/08/19 14:49:00 EDT, Tablet, [facility] #[id number], 160, cm, 09/26/19 13:56:00 EDT, Height, 47.8, [...] mL, 0 Refills, Maintenance,12/08/19 14:51:00 EDT, Suspension, [facility] #[id number], 160, cm, 09/26/19 13:56:00 EDT, Height, 47.8, [...] mL, 0 Refills, Maintenance, 12/26/19 14:02:00 EDT, [facility] #[id number],Drink 240mL every 10-15 minutes until first half [...] 0 Refills, Maintenance, 04/18/19 9:52:00 EST, Tablet, [facility] #[id number], 160, cm, 04/18/19 9:08:00 EST, Height, 47.8, kg, 04/04/19 11:54:00 EST, Dry Weight Start Date: 04/18/19 Status: Ordered SUMAtriptan 50 mg oral tablet 1 tablet = 50 mg, By Mouth, Daily, # 18 tablet, 1 Refills, Soft Stop, 03/05/20 16:16:00 EST, Tablet, [facility]/pharmacy #1130, 160, cm, 02/09/20 11:43:00 EST, Height, 42.2, kg, 02/09/20 11:49:00 EST, Dry Weight Start Date: 03/05/20 Status: Ordered Truvada 200 mg-300 mg oral tablet 1 tablet, By Mouth, Daily, re-start PreP, # 30 tablet, 3 Refills, Maintenance, 05/29/20 14:58:00 EST, Tablet, [facility]/pharmacy #1130, 1 tablet By Mouth Daily,Instr:re-start PreP, 160, cm, 02/09/20 11:43:00 EST, Height, 42.2, kg, 02/09/20 11:49:00 EST, Dry... Start Date: 05/29/20 Status: Ordered Truvada 200 mg-300 mg oral tablet 1 tablet, By Mouth, Daily, # 30 tablet, 0 Refills, Maintenance, 04/19/19 13:05:00 EST, Tablet, [facility] #[id number], 1 tablet By Mouth Daily, 160, cm, 04/18/19 9:08:00 EST, Height, 47.8, kg, 04/04/19 11:54:00 EST, Dry Weight Start Date: 04/19/19 Status: Ordered Tylenol 325 mg oral tablet 650 mg, 2, tablet, By Mouth, Every 6 hours, PRN, not to exceed 4000 mg/day, Bolivian label, # 120 tablet, Refills 1, Tot. Refills 1, Maintenance, Pain , Moderate, 03/05/20 16:16:00 EST, Route to Pharmacy Electronically, [facility]/pharmacy #[id number], Partial fill... Start Date: 03/05/20 Status: Ordered Vitamin D3 1000 intl units oral capsule 1 capsule = 1,000 International_Units, By Mouth, Daily, # 100 capsule, 0 Refills, Maintenance, 04/18/19 9:51:00 EST, Capsule, [facility] #[id number], 160, cm, 04/18/19 9:08:00 EST, Height, 47.8,kg, [...]
--- OUTSIDE RECORDS SUMMARY | 2022-10-23 01:16 | XMS_ITS | Continuity of Care Document ---
Author Name Unknown Organization [facility] Address [address] [place] [address]- Care Team Providers Care Content Analyst Name Role Phone Michele JACKSON Jillian Primary Care Physician [facility] Date[facility]s): 10/23/21 - 12/06/21 [facility] Medicine [address] [place], [place] [address] Attending Physician: Not on Staff, Attending MD [...] 12/07/12 Gi douglas 1Admin Note: VIS GIVEN polish 02/08/08 2Admin Note: vis given dated 10/15/12 Medications Combipatch 0.05 mg-0.14 mg/24 hours transdermal film, extended release 1 patch, Topically, Every Thursday and , # 8 patch, 2 Refills, Maintenance, 08/06/21 19:38:00EDT, [id number], Partial fill upon patient request if the prescription is for a schedule IIopioid drug., 1 patch Topically Every Thursday and . Start Date: 08/06/21 Status: Ordered dicyclomine 10 mg oral capsule 1 capsule, By Mouth, 4 times a day, PRN NEEDED FOR MODERATE PAIN, # 120 capsule, 1 Refills, [id number], 160, cm, 04/22/21 10:31:00 EST, Height, 42.2, kg, 02/09/20 11:49:00 EST, Dry Weight Start Date: 05/21/21 Status: Ordered hydroquinone 2% topical cream 1 application, Topically, 2 times a day, Estonian, apply to dark lesions on face, use sunscreen withuse, # 28 Gm, 1 Refills, Maintenance, 11/08/20 10:16:00 EDT, Cream, [facility] #[id number], 1 application Topically 2 times a day,Instr:Estonian, a... Start Date: 11/08/20 Status: Ordered meclizine 25 mg oral tablet 1 tablet = 25 mg, By Mouth, 3 times a day, PRN for dizziness, # 90 tablet, 1 Refills, Maintenance, 11/08/20 10:17:00 EDT, Tablet, [facility] #[id number], 160, cm, 11/08/20 9:35:00 EDT, Height, 42.2, kg, 02/09/20 11:49:00 EST, Dry Weight Start Date: 11/08/20 Status: Ordered MiraLax oral powder for reconstitution = 17 Gm, By Mouth, Daily, Titrate as needed, # 527 Gm, 1 Refills, Maintenance, 04/22/21 10:51:00 EST, [facility]/pharmacy #1130, Partial fill upon patient request if the prescription is for a schedule II opioid drug., 17 Gm By Mouth Daily,Instr:Titrate as ne... Start Date: 04/22/21 Status: Ordered mirtazapine 7.5 mg oral tablet 1 tablet, By Mouth, Daily at bedtime, # 30 tablet, 3 Refills, [facility] 78593, 160, cm, 07/29/21 11:45:00 EDT, Height, 42.2, kg, 02/09/20 11:49:00 EST, Dry Weight Start Date: 08/06/21 Status: Ordered NuLYTELY with Flavor Packs oral powder for reconstitution See Instructions, Drink 240mL every 15-20 minutes until first half is gone. Repeat 6 hours prior toprocedure., # 4,000 mL, 0 Refills, Maintenance, 04/22/21 10:50:00 EST, [facility]/pharmacy #[id number], Partial fill upon patient [...] 0 Refills, Maintenance, 11/08/20 10:17:00 EDT, Tablet, [facility] #[id number], 160, cm, 11/08/20 9:35:00 EDT, Height, 42.2, kg, 02/09/20 11:49:00 EST, Dry Weight Start Date: 11/08/20 Status: Ordered SUMAtriptan 50 mg oral tablet 1 tablet = 50 mg, By Mouth, Daily, PRN as needed for migraine headache, may repeat dose in 2 hours if needed, # 18 tablet, 0 Refills, Soft Stop, 11/18/21 15:46:00 EDT, Tablet, [facility]/pharmacy #1130, 160, cm, 08/22/21 14:32:00 EDT, Height, 42.2, kg, 02/08... Start Date: 11/18/21 Status: Ordered Truvada 200 mg-300 mg oral tablet 1 tablet, By Mouth, Daily, re-start PreP, # 30 tablet, 6 Refills, Maintenance, 05/14/21 8:00:00 EST, Tablet, [facility], 1 tablet By Mouth Daily,Instr:re-start PreP, 160, cm, 04/22/21 10:31:00 EST, Height, 42.2, kg, 02/09/20 11:49:00 EST, Dry... Start Date: 05/14/21 Status: Ordered Tylenol Extra Strength 500 mg oral tablet 2 tablet = 1,000 mg, By Mouth, Every 6 hours, # 24 tablet, 0 Refills, Maintenance, 07/29/21 11:16:00 EDT, [facility] #[id number], Partial fill upon patient request if the prescription is for a schedule II opioid drug., 160, cm, 06/13/21 8:25:00 E... Start Date: 07/29/21 Status: Ordered Vitamin D3 1000 intl units [...] 100 in lifetime) entered on: 11/08/20 Sex Care Team Personnel Name: Jillian Bautista DO Address: [address] [place] [address]
--- OUTSIDE RECORDS SUMMARY | 2022-10-23 01:16 | XMS_ITS | Continuity of Care Document ---
Author Name Unknown Organization [facility] Address [address] [place] [address]- Care Team Providers Care Cardiac Catheterization Technologist Name Role Phone Naun BATRES, Romel Ma Primary Care Physician [phone] [facility]counter [facility] Date(s): 04/18/19 - 04/28/[address] [facility] Medicine [address] [place] [id number] Attending Physician: Janet Lundberg Admitting Physician: [...] given dated 10/15/12 2Admin Note: VIS GIVEN welsh 02/08/08 Medications dicyclomine 10 mg oral capsule [...] 1 application, Topically, 2 times a day, Bangladeshi, apply to dark lesions on face, use sunscreen withuse, # 28 Gm, 1 Refills, Maintenance, 10/06/18 13:14:56 EDT, Cream, 1 application Topically 2 timesa day,Instr:Bangladeshi, apply to dark lesions on face,... Start Date: 10/06/18 Status: Ordered lidocaine 5% topical ointment 1 application, Topically, 3 times a day, # 50 Gm, 0 Refills, Acute 05/17/19 23:36:00 EST, 04/22/19 23:36:00 EST, [facility] #[id number], 1 application Topically 3 times a day, 160, cm,04/18/19 9:08:00 EST, Height, 47.8, kg, 04/04/19 11... Start Date: 04/22/19 Stop Date: 05/17/19 Status: Ordered meclizine 25 mg oral tablet [...] Refills, Maintenance, 04/18/19 9:51:00 EST, REC Powder, [facility] #[id number], 17 Gm By Mouth 2 times a day,PRN:Constipation,Instr:dissolve in water... Start Date: 04/18/19 Status: Ordered Nabumetone Tablet TK 1 T PO QID Start Date: 05/17/18 Status: Ordered simethicone 80 mg oral tablet 1 tablet = 80 mg, Chew, 3 times a day after meals, PRN as needed for gas, # 60 tablet, 0 Refills, Maintenance, 04/18/19 9:52:00 EST, Tablet, [facility] #[id number], 160, cm, 04/18/19 9:08:00 EST, Height, 47.8, kg, 04/04/19 11:54:00 EST, Dry Weight Start Date: 04/18/19 Status: Ordered SUMAtriptan 50 mg oral tablet 1 tablet = 50 mg, By Mouth, Daily, # 18 tablet, 1 Refills, Soft Stop, 04/18/19 9:51:00 EST, Tablet,[facility] #48715, 160, cm, 04/18/19 9:08:00 EST, Height, 47.8, kg, 04/04/19 11:54:00 EST, Dry Weight Start Date: 04/18/19 Status: Ordered Truvada 200 mg-300 mg oral tablet 1 tablet, By Mouth, Daily, # 30 tablet, 2 Refills, Maintenance, 04/21/19 8:52:00 EST, Tablet, [facility] #[id number], 1 tablet By Mouth Daily, 160, cm, 04/18/19 9:08:00 EST, Height, 47.8, kg, 04/04/19 11:54:00 EST, Dry Weight Start Date: 04/21/19 Status: Ordered Truvada 200 mg-300 mg oral tablet 1 tablet, By Mouth, Daily, # 30 tablet, 0 Refills, Maintenance, 04/19/19 13:05:00 EST, Tablet, [facility] #[id number], 1 tablet By Mouth Daily, 160, cm, 04/18/19 9:08:00 EST, Height, 47.8, kg, 04/04/19 11:54:00 EST, Dry Weight Start Date: 04/19/19 Status: Ordered Vitamin D3 1000 intl units oral capsule 1 capsule = 1,000 International_Units, By Mouth, Daily, # 100 capsule, 0 Refills, Maintenance, 04/18/19 9:51:00 EST, Capsule, [facility] #[id number], 160, cm, 04/18/19 9:08:00 EST, Height, 47.8,kg, [...]
--- OUTSIDE RECORDS SUMMARY | 2022-10-23 01:16 | XMS_ITS | Continuity of Care Document ---
Author Name Unknown Organization [facility] Address [address] [place] [address]- Care Team Providers Care Security Professional Name Role Phone Davidson BATRES, Ezio Laguerre Primary Care Physician [facility] Date(s): 01/25/21 - 02/24/21 [facility] Medicine [address] [place] [id number] Allergies, Adverse Reactions, Alerts Substance Reaction [...] 12/07/12 Gi douglas 1Admin Note: VIS GIVEN dutch 02/08/08 2Admin Note: vis given dated 10/15/12 Medications dicyclomine 10 mg oral capsule See Instructions, TAKE ONE CAPSULE BY MOUTH FOUR TIMES DAILY, # 120 capsule, 1 Refills, Soft Stop, 11/08/20 10:17:00 EDT, [facility] #[id number], 160, cm, 11/08/20 9:35:00 EDT, Height, 42.2, kg,02/09/20 11:49:00 EST, Dry Weight Start Date: 11/08/20 Status: Ordered dicyclomine 10 mg oral capsule 1 capsule = 10 mg, By Mouth, 4 times a day, # 120 capsule, 1 Refills, Maintenance, 02/21/21 13:02:00 EST, Capsule, [facility]/pharmacy #1130, Partial fill upon patient request if the prescription is for a schedule II opioid drug., 160, cm, 11/08/20 9:35:00 E... Start Date: 02/21/21 Stop Date: 04/22/21 Status: Ordered hydroquinone 2% topical cream 1 application, Topically, 2 times a day, Mauritanian, apply to dark lesions on face, use sunscreen withuse, # 28 Gm, 1 Refills, Maintenance, 11/08/20 10:16:00 EDT, Cream, [facility] #08348, 1 application Topically 2 times a day,Instr:Mauritanian, a... Start Date: 11/08/20 Status: Ordered meclizine 25 mg oral tablet 1 tablet = 25 mg, By Mouth, 3 times a day, PRN for dizziness, # 90 tablet, 1 Refills, Maintenance, 11/08/20 10:17:00 EDT, Tablet, [facility] #[id number], 160, cm, 11/08/20 9:35:00 EDT, Height, 42.2, kg, 02/09/20 11:49:00 EST, Dry Weight Start Date: 11/08/20 Status: Ordered simethicone 80 mg oral tablet 1 tablet = 80 mg, Chew, 3 times a day after meals, PRN as needed for gas, # 60 tablet, 0 Refills, Maintenance, 11/08/20 10:17:00 EDT, Tablet, [facility] #[id number], 160, cm, 11/08/20 9:35:00 EDT, Height, 42.2, kg, 02/09/20 11:49:00 EST, Dry Weight Start Date: 11/08/20 Status: Ordered SUMAtriptan 50 mg oral tablet 1 tablet = 50 mg, By Mouth, Daily, # 18 tablet, 1 Refills, Soft Stop, 11/08/20 10:17:00 EDT, Tablet, [facility] #[id number], 160, cm, 11/08/20 9:35:00 EDT, Height, 42.2, [...]
--- OUTSIDE RECORDS SUMMARY | 2022-10-23 01:16 | XMS_ITS | Continuity of Care Document ---
Author Name Unknown Organization [facility] Address [address] [place] [address]- Care Team Providers Care Residue Furnace Operator Name Role Phone Ezio Cedeño MD Primary Care Physician [facility] Date(s): 06/13/21 - 07/13/21 [facility] [address] [place], [place] [address] Attending Physician: Janet Lundberg Admitting Physician: [...] 12/07/12 Gi douglas 1Admin Note: VIS GIVEN divehi 02/08/08 2Admin Note: vis given dated 10/15/12 Medications dicyclomine 10 mg oral capsule 1 capsule, By Mouth, 4 times a day, PRN NEEDED FOR MODERATE PAIN, # 120 capsule, 1 Refills, [facility] 66763, 160, cm, 04/22/21 10:31:00 EST, Height, 42.2, kg, 02/09/20 11:49:00 EST, Dry Weight Start Date: 05/21/21 Status: Ordered hydroquinone 2% topical cream 1 application, Topically, 2 times a day, [place] Citizen, apply to dark lesions on face, use sunscreen withuse, # 28 Gm, 1 Refills, Maintenance, 11/08/20 10:16:00 EDT, Cream, [facility] #[id number], 1 application Topically 2 times a day,Instr:[place]chten[place] Citizen, a... Start Date: 11/08/20 Status: Ordered meclizine 25 mg oral tablet 1 tablet = 25 mg, By Mouth, 3 times a day, PRN for dizziness, # 90 tablet, 1 Refills, Maintenance, 11/08/20 10:17:00 EDT, Tablet, [facility] #10124, 160, cm, 11/08/20 9:35:00 EDT, Height, 42.2, kg, 02/09/20 11:49:00 EST, Dry Weight Start Date: 11/08/20 Status: Ordered MiraLax oral powder for reconstitution = 17 Gm, By Mouth, Daily, Titrate as needed, # 527 Gm, 1 Refills, Maintenance, 04/22/21 10:51:00 EST, [facility]/pharmacy #1130, Partial fill upon patient request if the prescription is for a schedule II opioid drug., 17 Gm By Mouth Daily,Instr:Titrate as ne... Start Date: 04/22/21 Status: Ordered mirtazapine 7.5 mg oral tablet 1 tablet = 7.5 mg, By Mouth, Daily at bedtime, # 30 tablet, 3 Refills, Maintenance, 04/09/21 9:45:00 EST, [facility]/pharmacy #1130, Partial fill upon patient request [...] mL, 0 Refills, Maintenance, 04/22/21 10:50:00 EST, [facility]/pharmacy #1130, Partial fill upon patient request [...] 0 Refills, Maintenance, 11/08/20 10:17:00 EDT, Tablet, [facility] #[id number], 160, cm, 11/08/20 9:35:00 EDT, Height, 42.2, kg, 02/09/20 11:49:00 EST, Dry Weight Start Date: 11/08/20 Status: Ordered SUMAtriptan 50 mg oral tablet 1 tablet = 50 mg, By Mouth, Daily, # 18 tablet, 1 Refills, Soft Stop, 11/08/20 10:17:00 EDT, Tablet, [facility] #[id number], 160, cm, 11/08/20 9:35:00 EDT, Height, 42.2, kg, 02/09/20 11:49:00 EST, Dry Weight Start Date: 11/08/20 Status: Ordered Truvada 200 mg-300 mg oral tablet 1 tablet, By Mouth, Daily, re-start PreP, # 30 tablet, 6 Refills, Maintenance, 05/14/21 8:00:00 EST, Tablet, [facility]/pharmacy #1130, 1 tablet By Mouth Daily,Instr:re-start PreP, 160, cm, 04/22/21 10:31:00 EST, Height, 42.2, kg, 02/09/20 11:49:00 EST, Dry... Start Date: 05/14/21 Status: Ordered Vitamin D3 1000 intl units oral tablet 1 tablet = 25 mcg, By Mouth, Daily, # 90 tablet, 1 Refills, Maintenance, 02/28/21 11:18:00 EST, [facility]/pharmacy #1130, Partial fill upon patient request [...]
--- OUTSIDE RECORDS SUMMARY | 2022-10-23 01:16 | XMS_ITS | Continuity of Care Document ---
Author Name Unknown Organization [facility] Address [address] [place] [address]- Care Team Providers Care Balance Assembler Name Role Phone Davidson BATRES, Ezio Simms Primary Care Physician Encounter [facility] Date(s): 02/06/20 - 03/09/20 [facility]/[address] [address]- Attending Physician: Nora Carter MD Admitting Physician: Nora Carter MD Allergies, Adverse Reactions, Alerts Substance Reaction [...] 04/09/20 17:32:00 EST, 02/09/20 17:32:00 EST, Capsule, [facility] #[id number], 160, cm, 02/09/20 11:43:00 EST, Height, 42.2, kg, 01/21... Start Date: 02/09/20 Stop Date: 04/09/20 Status: Ordered dicyclomine 10 mg oral capsule 1 capsule = 10 mg, By Mouth, 4 times a day, PRN Pain , Moderate, # 60 capsule, 1 Refills, Maintenance, 02/24/20 12:26:00 EST, Capsule, [facility]/pharmacy #1130, 160, cm, 02/09/20 11:43:00 EST, [...] 0 Refills, Maintenance, 03/05/20 16:16:00 EST, Tablet, [facility]/pharmacy #1130, 160, cm, 02/09/20 11:43:00 EST, Height, 42.2, kg, 02/09/20 11:49:00 EST, Dry Weight Start Date: 03/05/20 Status: Ordered hydroquinone 2% topical cream 1 application, Topically, 2 times a day, Wallisian, apply to dark lesions on face, use sunscreen withuse, # 28 Gm, 1 Refills, Maintenance, 10/06/18 13:14:56 EDT, Cream, 1 application Topically 2 timesa day,Instr:Wallisian, apply to dark lesions on face,... Start Date: 10/06/18 Status: Ordered Lactaid 3000 units oral tablet 3 tablet = 9,000 units, By Mouth, 3 times a day with meals, # 120 tablet, 0 Refills, Maintenance, 12/08/19 14:49:00 EDT, Tablet, [facility] #[id number], 160, cm, 09/26/19 13:56:00 EDT, Height, 47.8, [...] mL, 0 Refills, Maintenance,12/08/19 14:51:00 EDT, Suspension, [facility] #[id number], 160, cm, 09/26/19 13:56:00 EDT, Height, 47.8, [...] mL, 0 Refills, Maintenance, 12/26/19 14:02:00 EDT, [facility] #[id number],Drink 240mL every 10-15 minutes until first half [...] 0 Refills, Maintenance, 04/18/19 9:52:00 EST, Tablet, [facility] #66202, 160, cm, 04/18/19 9:08:00 EST, Height, 47.8, kg, 04/04/19 11:54:00 EST, Dry Weight Start Date: 04/18/19 Status: Ordered SUMAtriptan 50 mg oral tablet 1 tablet = 50 mg, By Mouth, Daily, # 18 tablet, 1 Refills, Soft Stop, 03/05/20 16:16:00 EST, Tablet, [facility]/pharmacy #1130, 160, cm, 02/09/20 11:43:00 EST, Height, 42.2, kg, 02/09/20 11:49:00 EST, Dry Weight Start Date: 03/05/20 Status: Ordered Truvada 200 mg-300 mg oral tablet 1 tablet, By Mouth, Daily, # 30 tablet, 0 Refills, Maintenance, 04/19/19 13:05:00 EST, Tablet, [facility] #04789, 1 tablet By Mouth Daily, 160, cm, 04/18/19 9:08:00 EST, Height, 47.8, kg, 04/04/19 11:54:00 EST, Dry Weight Start Date: 04/19/19 Status: Ordered Tylenol 325 mg oral tablet 650 mg, 2, tablet, By Mouth, Every 6 hours, PRN, not to exceed 4000 mg/day, Wallisian label, # 120 tablet, Refills 1, Tot. Refills 1, Maintenance, Pain , Moderate, 03/05/20 16:16:00 EST, Route to Pharmacy Electronically, [facility]/pharmacy #1130, Partial fill... Start Date: 03/05/20 Status: Ordered Vitamin D3 1000 intl units oral capsule 1 capsule = 1,000 International_Units, By Mouth, Daily, # 100 capsule, 0 Refills, Maintenance, 04/18/19 9:51:00 EST, Capsule, [facility] #[id number], 160, cm, 04/18/19 9:08:00 EST, Height, 47.8,kg, [...]
--- OUTSIDE RECORDS SUMMARY | 2022-10-23 01:16 | XMS_ITS | Continuity of Care Document ---
Author Name Unknown Organization [facility] Address [address] [place] [address]- Care Team Providers Care Explosive Ordnance Technician Name Role Phone Twindieudonne JACKSON Jillian Primary Care Physician [facility] Date[facility]s): 10/08/21 - 11/22/21 [facility] Medicine [address] [place], [place] [address] Attending Physician: Not on Staff, Attending [...] 12/07/12 Gi douglas 1Admin Note: VIS GIVEN turkish 02/08/08 2Admin Note: vis given dated 10/15/12 [...] MODERATE PAIN, # 120 capsule, 1 Refills, [facility] [id number], 160, cm, 04/22/21 10:31:00 EST, Height, 42.2, kg, 02/09/20 11:49:00 EST, Dry Weight Start Date: 05/21/21 Status: Ordered hydroquinone 2% topical cream 1 application, Topically, 2 times a day, Chadian, apply to dark lesions on face, use sunscreen withuse, # 28 Gm, 1 Refills, Maintenance, 11/08/20 10:16:00 EDT, Cream, [email or web address] #[id number], 1 application Topically 2 times a day,Instr:Chadian, a... Start Date: 11/08/20 Status: Ordered meclizine 25 mg oral tablet 1 tablet = 25 mg, By Mouth, 3 times a day, PRN for dizziness, # 90 tablet, 1 Refills, Maintenance, 11/08/20 10:17:00 EDT, Tablet, [facility] #[id number], 160, cm, 11/08/20 9:35:00 EDT, Height, 42.2, kg, 02/09/20 11:49:00 EST, Dry Weight Start Date: 11/08/20 Status: Ordered MiraLax oral powder for reconstitution = 17 Gm, By Mouth, Daily, Titrate as needed, # 527 Gm, 1 Refills, Maintenance, 04/22/21 10:51:00 EST, [facility]/pharmacy #1130, Partial fill upon patient request if the prescription is for a schedule II opioid drug., 17 Gm By Mouth Daily,Instr:Titrate as ne... Start Date: 04/22/21 Status: Ordered mirtazapine 7.5 mg oral tablet 1 tablet, By Mouth, Daily at bedtime, # 30 tablet, 3 Refills, [facility] 93314, 160, cm, 07/29/21 11:45:00 EDT, Height, 42.2, kg, 02/09/20 11:49:00 EST, Dry Weight Start Date: 08/06/21 Status: Ordered NuLYTELY with Flavor Packs oral powder for reconstitution See Instructions, Drink 240mL every 15-20 minutes until first half is gone. Repeat 6 hours prior toprocedure., # 4,000 mL, 0 Refills, Maintenance, 04/22/21 10:50:00 EST, [facility]/pharmacy #[id number], Partial fill upon patient request if [...] 0 Refills, Maintenance, 11/08/20 10:17:00 EDT, Tablet, [email or web address] #[id number], 160, cm, 11/08/20 9:35:00 EDT, Height, 42.2, kg, 02/09/20 11:49:00 EST, Dry Weight Start Date: 11/08/20 Status: Ordered SUMAtriptan 50 mg oral tablet 1 tablet = 50 mg, By Mouth, Daily, PRN as needed for migraine headache, may repeat dose in 2 hours if needed, # 18 tablet, 0 Refills, Soft Stop, 11/18/21 15:46:00 EDT, Tablet, [facility]/pharmacy #1130, 160, cm, 08/22/21 14:32:00 EDT, Height, [...] tablet, 0 Refills, Maintenance, 07/29/21 11:16:00 EDT, [facility] #[id number], Partial fill upon patient request if the [...] Team Personnel Name: Jillian Bautista DO Address: [address] [place] [address]
--- OUTSIDE RECORDS SUMMARY | 2022-10-23 01:16 | XMS_ITS | Continuity of Care Document ---
Author Name Unknown Organization [facility] Address [address] [place] [address]- Care Team Providers Care News Internship Name Role Phone Davidson BATRES, Ezio Simms Primary Care Physician [place] [facility] [place] - 03/10/20 [facility]/[address] [address]- Attending Physician: Janet Lundberg Admitting Physician: Janet [...] given dated 10/15/12 2Admin Note: VIS GIVEN sao tomean 02/08/08 Medications dicyclomine 10 mg oral capsule 1 capsule = 10 mg, By Mouth, 4 times a day, PRN Pain , Moderate, for 30 days, # 60 capsule, 1 Refills, Hard Stop 04/09/20 17:32:00 EST, 02/09/20 17:32:00 EST, Capsule, [facility] #[id number], 160, cm, 02/09/20 11:43:00 EST, Height, 42.2, kg, 01/21... Start Date: 02/09/20 Stop Date: 04/09/20 Status: Ordered dicyclomine 10 mg oral capsule 1 capsule = 10 mg, By Mouth, 4 times a day, PRN Pain , Moderate, # 60 capsule, 1 Refills, Maintenance, 02/24/20 12:26:00 EST, Capsule, [facility]/pharmacy #1130, 160, cm, 02/09/20 11:43:00 EST, [...] 0 Refills, Maintenance, 03/05/20 16:16:00 EST, Tablet, [facility]/pharmacy #1130, 160, cm, 02/09/20 11:43:00 EST, Height, 42.2, kg, 02/09/20 11:49:00 EST, Dry Weight Start Date: 03/05/20 Status: Ordered hydroquinone 2% topical cream 1 application, Topically, 2 times a day, Colombian, apply to dark lesions on face, use sunscreen withuse, # 28 Gm, 1 Refills, Maintenance, 10/06/18 13:14:56 EDT, Cream, 1 application Topically 2 timesa day,Instr:Colombian, apply to dark lesions on face,... Start Date: 10/06/18 Status: Ordered Lactaid 3000 units oral tablet 3 tablet = 9,000 units, By Mouth, 3 times a day with meals, # 120 tablet, 0 Refills, Maintenance, 12/08/19 14:49:00 EDT, Tablet, [facility] #[id number], 160, cm, 09/26/19 13:56:00 EDT, Height, 47.8, [...] mL, 0 Refills, Maintenance,12/08/19 14:51:00 EDT, Suspension, [facility] #68032, 160, cm, 09/26/19 13:56:00 EDT, Height, 47.8, [...] mL, 0 Refills, Maintenance, 12/26/19 14:02:00 EDT, [facility] #[id number],Drink 240mL every 10-15 minutes until first half [...] 0 Refills, Maintenance, 04/18/19 9:52:00 EST, Tablet, [facility] #78752, 160, cm, 04/18/19 9:08:00 EST, Height, 47.8, kg, 04/04/19 11:54:00 EST, Dry Weight Start Date: 04/18/19 Status: Ordered SUMAtriptan 50 mg oral tablet 1 tablet = 50 mg, By Mouth, Daily, # 18 tablet, 1 Refills, Soft Stop, 03/05/20 16:16:00 EST, Tablet, [facility]/pharmacy #1130, 160, cm, 02/09/20 11:43:00 EST, Height, 42.2, kg, 02/09/20 11:49:00 EST, Dry Weight Start Date: 03/05/20 Status: Ordered Truvada 200 mg-300 mg oral tablet 1 tablet, By Mouth, Daily, # 30 tablet, 0 Refills, Maintenance, 04/19/19 13:05:00 EST, Tablet, [facility] #38336, 1 tablet By Mouth Daily, 160, cm, 04/18/19 9:08:00 EST, Height, 47.8, kg, 04/04/19 11:54:00 EST, Dry Weight Start Date: 04/19/19 Status: Ordered Tylenol 325 mg oral tablet 650 mg, 2, tablet, By Mouth, Every 6 hours, PRN, not to exceed 4000 mg/day, Colombian label, # 120 tablet, Refills 1, Tot. Refills 1, Maintenance, Pain , Moderate, 03/05/20 16:16:00 EST, Route to Pharmacy Electronically, [facility]/pharmacy #1130, Partial fill... Start Date: 03/05/20 Status: Ordered Vitamin D3 1000 intl units oral capsule 1 capsule = 1,000 International_Units, By Mouth, Daily, # 100 capsule, 0 Refills, Maintenance, 04/18/19 9:51:00 EST, Capsule, [facility] #[id number], 160, cm, 04/18/19 9:08:00 EST, Height, 47.8,kg, [...]
--- OUTSIDE RECORDS SUMMARY | 2022-10-23 01:16 | XMS_ITS | Continuity of Care Document ---
Author Name Unknown Organization [facility] Address [address] [place] [address]- Care Team Providers Care Cocoa Mill Operator Name Role Phone Marilinrose JACKSONJillian Primary Care Physician [facility]counter [facility] Date(s): 03/19/22 - 04/18/22 [facility] [address], [place] [address] Attending Physician: Janet Lundberg Admitting Physician: [...] 12/07/12 Gi douglas 1Admin Note: VIS GIVEN malay 02/08/08 2Admin Note: vis given dated 10/15/12 Medications Combipatch 0.05 mg-0.14 mg/24 hours transdermal film, extended release 1 patch, Topically, Every Thursday and , # 8 patch, 6 Refills, Maintenance, 01/08/22 20:12:00EDT, [facility]/pharmacy #1130, Partial fill upon patient request if the prescription is for a schedule IIopioid drug., 1 patch Topically Every Thursday and .. Start Date: 01/08/22 Status: Ordered dicyclomine 10 mg oral capsule [...] 0 Refills, Maintenance, 02/12/22 11:01:00 EST, Tablet, [facility]/pharmacy #1130, Partial fill upon patient request i... Start Date: 02/12/22 Stop Date: 05/13/22 Status: Ordered MiraLax oral powder for reconstitution = 17 Gm, By Mouth, Daily, Titrate as needed, # 527 Gm, 1 Refills, Maintenance, 04/22/21 10:51:00 EST, [facility]/pharmacy #1130, Partial fill upon patient request if the prescription is for a schedule II opioid drug., 17 Gm By Mouth Daily,Instr:Titrate as ne... Start Date: 04/22/21 Status: Ordered Nutritional Supplements [...] # 18 tablet, 0 Refills, Soft Stop, 03/28/22 16:17:00 EST, Tablet, [facility]30, 160, cm, 01/08/22 9:48:00 EDT, Height Start Date: 03/28/22 Status: Ordered Truvada 200 mg-300 mg oral [...] List Condition Confirmation Course Effective Dates Status [facility] Informant Anxiety Confirmed Active Chronic [...] lifetime) entered on: 11/08/20 Sex Note * Suni Nagy: PERFORM, SIGN, VERIFY Event Display: Patient Education/Instruction Authored Date: [id number] [facility] Clinical Summary Person Information Visit Date 10/20/2017 11:20 AM Name KATERIN COLEMAN Age 46 Years 1970 12:00 AM PCP Romel Magallon MD PCP Sex Female Race White Ethnicity / Language Belizean You can now view a summary of your hospital visit from the comfort of your home through a free online portal called [employer]. [employer] is a website that allows you to securely view your medical information including discharge summary, medications and follow-up visits. You can also send a secure electronic message to your doctor???s office to request appointments, renew medicationsor just ask a question. You can enroll at [email or web address] or register during your next office visit. Smoking can increase your chances of developing chronic health problems and can cause harmful effects to other family members in your house. If you smoke, you are strongly encouraged to quit. Please call the [place] Smokers??? Helpline at 4-831-LRLCNOW (or ) or log on to [email or web address] for more information. The National Suicide Prevention Hotline is available 13/10 if you or someone you know needs to find a reason to keep living. By calling 3-390-623-qpvw (8957) you'll be connected to a skilled, trained [...] planted Left FA 06/30/17 at 1015am Lot [id number] exp 08/20/2018. Refills: 0. Future Orders No [...] primary care provider, you may find a [facility] provider by calling [facility] uma information technology Link at [phone]. For information about the plan of care including goals and instructions for your diagnosis, please see the patient education orders section of this document. Patient Visit Summary: Future Appointments: Type Location Start [facility] Physical [facility] 11/18/2017 9:00 AM 11/18/2017 9:40 AM Pending Return [facility] 12/16/2017 3:15 PM 12/16/2017 3:45 PM Pending Follow-Up Instructions With: Address: When: [facility] NURSE EMILY YELLOW 10/09/2010 1:41 PM Comments: PPD READING Patient Education Materials Additional Instructions: * Kavita Ramírez: PERFORM, SIGN, VERIFY Event Display: Patient Education/Instruction Authored Date: [id number] [facility] Clinical Summary Person Information Name KATERIN COLEMAN Age 39 Years 1970 12:00 AM PCP Jeane Vincent MD , Kayden PCP Reason for Visit: Allergy Info: penicillin [...] once, planted right forearm on 10/07/10, lot# [id number], exp 01/23/12, to be read in 48-72hrs, [...] primary care provider, you may find a [facility] provider by calling [facility] Mbaobao at [phone]. Patient Education Information Follow-up Details: With: Address: [facility]: [facility] NURSE PURPLE YELLOW 10/09/2010 13:41:00 Comments: PPD READING Patient Education Material: * Comfort Campbell: PERFORM Event Display: Laboratory Results Scanned Authored Date: [id number] Patient Care team information Care Team Personnel Name: Jillian Bautista DO Position: S Resident Member Role: PCP Address: Address: [address] [place] [address]- Care Team Related Persons Name: DANA MARTIN Address: home [address] [place] [address] Name: TERENCE MARTIN Name: CHAVA VASQUEZ Address: home [address] [place] [address] Name: , [facility] NONE
--- OUTSIDE RECORDS SUMMARY | 2022-10-23 01:17 | XMS_ITS | Continuity of Care Document ---
Author Name Unknown Organization [facility] Address [address] [place] [address]- Care Team Providers Care Telemarketing Sales Representative Name Role Phone Davidson BATRES, Ezio Laguerre Primary Care Physician Encounter [facility] [place] [facility] [place] [id number] Date(s): 10/25/20 - 01/26/21 [facility] [address] [place] [id number] Attending Physician: Viet Melara MD Admitting Physician: Viet Melara MD Referring Physician: Ezio Cedeño MD Allergies, [...] 12/07/12 Gi douglas 1Admin Note: VIS GIVEN kazakh 02/08/08 2Admin Note: vis given dated 10/15/12 Medications dicyclomine 10 mg oral capsule See Instructions, TAKE ONE CAPSULE BY MOUTH FOUR TIMES DAILY, # 120 capsule, 1 Refills, Soft Stop, 11/08/20 10:17:00 EDT, [facility][id number], 160, cm, 11/08/20 9:35:00 EDT, Height, 42.2, kg,02/09/20 11:49:00 EST, Dry Weight Start Date: 11/08/20 Status: Ordered hydroquinone 2% topical cream 1 application, Topically, 2 times a day, Citizen Of Sey[place], apply to dark lesions on face, use sunscreen withuse, # 28 Gm, 1 Refills, Maintenance, 11/08/20 10:16:00 EDT, Cream, [facility] #[id number], 1 application Topically 2 times a day,Instr:Citizen Of Sey[place], a... Start Date: 11/08/20 Status: Ordered meclizine 25 mg oral tablet 1 tablet = 25 mg, By Mouth, 3 times a day, PRN for dizziness, # 90 tablet, 1 Refills, Maintenance, 11/08/20 10:17:00 EDT, Tablet, [facility] #[id number], 160, cm, 11/08/20 9:35:00 EDT, Height, 42.2, kg, 02/09/20 11:49:00 EST, Dry Weight Start Date: 11/08/20 Status: Ordered simethicone 80 mg oral tablet 1 tablet = 80 mg, Chew, 3 times a day after meals, PRN as needed for gas, # 60 tablet, 0 Refills, Maintenance, 11/08/20 10:17:00 EDT, Tablet, [facility] #[id number], 160, cm, 11/08/20 9:35:00 EDT, Height, 42.2, kg, 02/09/20 11:49:00 EST, Dry Weight Start Date: 11/08/20 Status: Ordered SUMAtriptan 50 mg oral tablet 1 tablet = 50 mg, By Mouth, Daily, # 18 tablet, 1 Refills, Soft Stop, 11/08/20 10:17:00 EDT, Tablet, [facility] #[id number], 160, cm, 11/08/20 9:35:00 EDT, Height, 42.2, [...]
--- OUTSIDE RECORDS SUMMARY | 2022-10-23 01:17 | XMS_ITS | Continuity of Care Document ---
Author Name Unknown Organization [facility] Address Unknown Care Team Providers Care Wardrobe Assistant Name Role Phone Ezio Cedeño MD Primary Care Physician En[place] [facility] [place](s): 02/05/21 - 03/24/21 [facility] Attending Physician: Debbie Shrestha NP Admitting Physician: Debbie Shrestha NP Allergies, Adverse Reactions, [...] 1 Refills, Soft Stop, 11/08/20 10:17:00 EDT, [facility] #81305, 160, cm, 11/08/20 9:35:00 EDT, Height, 42.2, kg,02/09/20 11:49:00 EST, Dry Weight Start Date: 11/08/20 Status: Ordered dicyclomine 10 mg oral capsule 1 capsule = 10 mg, By Mouth, 4 times a day, # 120 capsule, 1 Refills, Maintenance, 02/21/21 13:02:00 EST, Capsule, [facility]/pharmacy #1130, Partial fill upon patient request if the prescription is for a schedule II opioid drug., 160, cm, 11/08/20 9:35:00 E... Start Date: 02/21/21 Stop Date: 04/22/21 Status: Ordered hydroquinone 2% topical cream 1 application, Topically, 2 times a day, Namibian, apply to dark lesions on face, use sunscreen withuse, # 28 Gm, 1 Refills, Maintenance, 11/08/20 10:16:00 EDT, Cream, [facility] #29760, 1 application Topically 2 times a day,Instr:Namibian, a... Start Date: 11/08/20 Status: Ordered meclizine 25 mg oral tablet 1 tablet = 25 mg, By Mouth, 3 times a day, PRN for dizziness, # 90 tablet, 1 Refills, Maintenance, 11/08/20 10:17:00 EDT, Tablet, [facility] #05506, 160, cm, 11/08/20 9:35:00 EDT, Height, 42.2, kg, 02/09/20 11:49:00 EST, Dry Weight Start Date: 11/08/20 Status: Ordered mirtazapine 15 mg oral tablet 1 tablet = 15 mg, By Mouth, Daily at bedtime, Namibian, # 30 tablet, 2 Refills, Maintenance, 02/27/21 8:35:00 EST, Tablet, [facility]/pharmacy #1130, Partial fill upon patient request if [...] 0 Refills, Maintenance, 11/08/20 10:17:00 EDT, Tablet, [facility] #38082, 160, cm, 11/08/20 9:35:00 EDT, Height, 42.2, kg, 02/09/20 11:49:00 EST, Dry Weight Start Date: 11/08/20 Status: Ordered SUMAtriptan 50 mg oral tablet 1 tablet = 50 mg, By Mouth, Daily, # 18 tablet, 1 Refills, Soft Stop, 11/08/20 10:17:00 EDT, Tablet, [facility] #24936, 160, cm, 11/08/20 9:35:00 EDT, Height, 42.2, kg, 02/09/20 11:49:00 EST, Dry Weight Start Date: 11/08/20 Status: Ordered Vitamin D3 1000 intl units oral tablet 1 tablet = 25 mcg, By Mouth, Daily, # 90 tablet, 1 Refills, Maintenance, 02/28/21 11:18:00 EST, [facility]/pharmacy #1130, Partial fill upon patient request if [...]
--- OUTSIDE RECORDS SUMMARY | 2022-10-23 01:17 | XMS_ITS | Continuity of Care Document ---
Author Name Unknown Organization [facility] Address [address] [place] [address]- Care Team Providers Care Elevator Operator Freight Name Role Phone Davidson BATRES, Ezio Laguerre Primary Care Physician [place] [facility] [place] - 05/31/20 [facility] [address] [place] [id number] Allergies, Adverse Reactions, Alerts Substance [...] given dated 10/15/12 2Admin Note: VIS GIVEN ukrainian 02/08/08 Medications dicyclomine 10 mg oral capsule [...] PAIN, # 60 capsule, 1 Refills, Maintenance, [facility], 160, cm, 02/09/20 11:43:00 EST, Height, 42.2, [...] 0 Refills, Maintenance, 03/05/20 16:16:00 EST, Tablet, [facility]/pharmacy #1130, 160, cm, 02/09/20 11:43:00 EST, Height, 42.2, kg, 02/09/20 11:49:00 EST, Dry Weight Start Date: 03/05/20 Status: Ordered hydroquinone 2% topical cream 1 application, Topically, 2 times a day, Nigerien, apply to dark lesions on face, use sunscreen withuse, # 28 Gm, 1 Refills, Maintenance, 10/06/18 13:14:56 EDT, Cream, 1 application Topically 2 timesa day,Instr:Nigerien, apply to dark lesions on face,... Start Date: 10/06/18 Status: Ordered Lactaid 3000 units oral tablet 3 tablet = 9,000 units, By Mouth, 3 times a day with meals, # 120 tablet, 0 Refills, Maintenance, 12/08/19 14:49:00 EDT, Tablet, [facility] #[id number], 160, cm, 09/26/19 13:56:00 EDT, Height, 47.8, [...] mL, 0 Refills, Maintenance,12/08/19 14:51:00 EDT, Suspension, [facility] #16519, 160, cm, 09/26/19 13:56:00 EDT, Height, 47.8, [...] mL, 0 Refills, Maintenance, 12/26/19 14:02:00 EDT, [facility] #77064,Drink 240mL every 10-15 minutes until first half [...] 0 Refills, Maintenance, 04/18/19 9:52:00 EST, Tablet, [facility] #20944, 160, cm, 04/18/19 9:08:00 EST, Height, 47.8, kg, 04/04/19 11:54:00 EST, Dry Weight Start Date: 04/18/19 Status: Ordered SUMAtriptan 50 mg oral tablet 1 tablet = 50 mg, By Mouth, Daily, # 18 tablet, 1 Refills, Soft Stop, 03/05/20 16:16:00 EST, Tablet, [facility]/pharmacy #1130, 160, cm, 02/09/20 11:43:00 EST, Height, 42.2, kg, 02/09/20 11:49:00 EST, Dry Weight Start Date: 03/05/20 Status: Ordered Truvada 200 mg-300 mg oral tablet 1 tablet, By Mouth, Daily, re-start PreP, # 30 tablet, 3 Refills, Maintenance, 05/29/20 14:58:00 EST, Tablet, [facility]/pharmacy #1130, 1 tablet By Mouth Daily,Instr:re-start PreP, 160, cm, 02/09/20 11:43:00 EST, Height, 42.2, kg, 02/09/20 11:49:00 EST, Dry... Start Date: 05/29/20 Status: Ordered Truvada 200 mg-300 mg oral tablet 1 tablet, By Mouth, Daily, # 30 tablet, 0 Refills, Maintenance, 04/19/19 13:05:00 EST, Tablet, [facility] #[id number], 1 tablet By Mouth Daily, 160, cm, 04/18/19 9:08:00 EST, Height, 47.8, kg, 04/04/19 11:54:00 EST, Dry Weight Start Date: 04/19/19 Status: Ordered Tylenol 325 mg oral tablet 650 mg, 2, tablet, By Mouth, Every 6 hours, PRN, not to exceed 4000 mg/day, Nigerien label, # 120 tablet, Refills 1, Tot. Refills 1, Maintenance, Pain , Moderate, 03/05/20 16:16:00 EST, Route to Pharmacy Electronically, [facility]/pharmacy #1130, Partial fill... Start Date: 03/05/20 Status: Ordered Vitamin D3 1000 intl units oral capsule 1 capsule = 1,000 International_Units, By Mouth, Daily, # 100 capsule, 0 Refills, Maintenance, 04/18/19 9:51:00 EST, Capsule, [facility] #[id number], 160, cm, 04/18/19 9:08:00 EST, Height, 47.8,kg, [...]
--- OUTSIDE RECORDS SUMMARY | 2022-10-23 01:17 | XMS_ITS | Continuity of Care Document ---
Author Name Unknown Organization [facility] Address [address] [place] [address]- Care Team Providers Care Flatbed Driver Name Role Phone Twindieudonne JACKSONJillian Primary Care Physician [phone] Encounter [facility] Date(s): 08/20/21 - 12/18/[address] [address] Attending Physician: Not on Staff, Attending MD [...] 12/07/12 Gi douglas 1Admin Note: VIS GIVEN ivorian 02/08/08 2Admin Note: vis given dated 10/15/12 [...] MODERATE PAIN, # 120 capsule, 1 Refills, [facility]147, 160, cm, 04/22/21 10:31:00 EST, Height, 42.2, kg, 02/09/20 11:49:00 EST, Dry Weight Start Date: 05/21/21 Status: Ordered hydroquinone 2% topical cream 1 application, Topically, 2 times a day, Kuwaiti, apply to dark lesions on face, use sunscreen withuse, # 28 Gm, 1 Refills, Maintenance, 11/08/20 10:16:00 EDT, Cream, [facility] #21773, 1 application Topically 2 times a day,Instr:Kuwaiti, a... Start Date: 11/08/20 Status: Ordered meclizine 25 mg oral tablet 1 tablet = 25 mg, By Mouth, 3 times a day, PRN for dizziness, # 90 tablet, 1 Refills, Maintenance, 11/08/20 10:17:00 EDT, Tablet, [facility] #17553, 160, cm, 11/08/20 9:35:00 EDT, Height, 42.2, [...] at bedtime, # 30 tablet, 3 Refills, [facility] 45194, 160, cm, 07/29/21 11:45:00 EDT, Height, 42.2, [...] 0 Refills, Maintenance, 11/08/20 10:17:00 EDT, Tablet, [facility] #83143, 160, cm, 11/08/20 9:35:00 EDT, Height, 42.2, kg, 02/09/20 11:49:00 EST, Dry Weight Start Date: 11/08/20 Status: Ordered SUMAtriptan 50 mg oral tablet 1 tablet = 50 mg, By Mouth, Daily, PRN as needed for migraine headache, may repeat dose in 2 hours if needed, # 18 tablet, 0 Refills, Soft Stop, 11/18/21 15:46:00 EDT, Tablet, [facility]/pharmacy #1130, 160, cm, 08/22/21 14:32:00 EDT, Height, [...] tablet, 0 Refills, Maintenance, 07/29/21 11:16:00 EDT, [facility], Partial fill upon patient request if the [...] Date: 08/27/21 Status: Ordered Problem List Condition Confirmation Course Effective Dates Status [facility] Informant Anxiety Confirmed Active Chronic [...] on: 11/08/20 Sex Patient Care team information Personnel Name: Jillian Bautista DO Address: Address: [address] [place] [address]
--- OUTSIDE RECORDS SUMMARY | 2022-10-23 01:17 | XMS_ITS | Continuity of Care Document ---
Author Name Unknown Organization [facility] Address [address] [place] [address]- Care Team Providers Care Corn Popper Name Role Phone Davidson BATRES, Ezio Laguerre Primary Care Physician [phone] Encounter [facility] [place] Date(s): 06/05/20 - 07/05/20 [facility] [address] [place] [id number] Allergies, Adverse Reactions, Alerts Substance Reaction [...] given dated 10/15/12 2Admin Note: VIS GIVEN hebrew 02/08/08 Medications dicyclomine 10 mg oral capsule See Instructions, TAKE 1 CAPSULE BY MOUTH FOUR TIMES A DAY NEEDED FOR PAIN, # 60 capsule, 1 Refills, Maintenance, [facility], 160, cm, 02/09/20 11:43:00 EST, Height, 42.2, [...] 1 application, Topically, 2 times a day, Sri Lankan, apply to dark lesions on face, use sunscreen withuse, # 28 Gm, 1 Refills, Maintenance, 10/06/18 13:14:56 EDT, Cream, 1 application Topically 2 timesa day,Instr:Sri Lankan, apply to dark lesions on face,... Start Date: 10/06/18 Status: Ordered Lactaid 3000 units oral tablet 3 tablet = 9,000 units, By Mouth, 3 times a day with meals, # 120 tablet, 0 Refills, Maintenance, 12/08/19 14:49:00 EDT, Tablet, [facility] #05927, 160, cm, 09/26/19 13:56:00 EDT, Height, 47.8, [...] mL, 0 Refills, Maintenance,12/08/19 14:51:00 EDT, Suspension, [facility] #57481, 160, cm, 09/26/19 13:56:00 EDT, Height, 47.8, [...] mL, 0 Refills, Maintenance, 12/26/19 14:02:00 EDT, [facility] #74679,Drink 240mL every 10-15 minutes until first half [...] 0 Refills, Maintenance, 04/18/19 9:52:00 EST, Tablet, [facility] #73710, 160, cm, 04/18/19 9:08:00 EST, Height, 47.8, [...] 0 Refills, Maintenance, 04/19/19 13:05:00 EST, Tablet, [facility] #42346, 1 tablet By Mouth Daily, 160, cm, 04/18/19 9:08:00 EST, Height, 47.8, kg, 04/04/19 11:54:00 EST, Dry Weight Start Date: 04/19/19 Status: Ordered Tylenol 325 mg oral tablet 650 mg, 2, tablet, By Mouth, Every 6 hours, PRN, not to exceed 4000 mg/day, Sri Lankan label, # 120 tablet, Refills 1, Tot. Refills 1, Maintenance, Pain , Moderate, 03/05/20 16:16:00 EST, Route to Pharmacy Electronically, [facility]/pharmacy #1130, Partial fill... Start Date: 03/05/20 Status: Ordered Vitamin D3 1000 intl units oral capsule 1 capsule = 1,000 International_Units, By Mouth, Daily, # 100 capsule, 0 Refills, Maintenance, 04/18/19 9:51:00 EST, Capsule, [facility] #08610, 160, cm, 04/18/19 9:08:00 EST, Height, 47.8,kg, [...]
--- OUTSIDE RECORDS SUMMARY | 2022-10-23 01:17 | XMS_ITS | Continuity of Care Document ---
Author Name Unknown Organization [facility] Address [address] [place] [address]- Care Team Providers Care Property Management Coordinator Name Role Phone Naun BATRES, Romel Ma Primary Care Physician [phone] [facility] [place] Date(s): 02/28/19 - 02/28/19 [facility]/[address] [address]- [facility] Discharge Disposition: A-D/C Home Attending Physician: Not on Staff, Attending MD Admitting Physician: Not on Staff, Admitting MD Referring Physician: Henrietta RYDER, Debbie Lemus Allergies, Adverse Reactions, Alerts Substance Reaction Severity [...] given dated 10/15/12 2Admin Note: VIS GIVEN bengali 02/08/08 Medications dicyclomine 10 mg oral capsule [...]
--- OUTSIDE RECORDS SUMMARY | 2022-10-23 01:17 | XMS_ITS | Continuity of Care Document ---
Author Name Unknown Organization [facility] Address [address] [place] [address]- Care Team Providers Care Fabrication Lead Name Role Phone Davidson BATRES, Ezio Simms Primary Care Physician [facility]): [facility]20 - 03/24/20 [facility] [address] [place] [id number] Allergies, Adverse Reactions, Alerts Substance [...] given dated 10/15/12 2Admin Note: VIS GIVEN lebanese 02/08/08 Medications dicyclomine 10 mg oral capsule 1 capsule = 10 mg, By Mouth, 4 times a day, PRN Pain , Moderate, for 30 days, # 60 capsule, 1 Refills, Hard Stop 04/09/20 17:32:00 EST, 02/09/20 17:32:00 EST, Capsule, [facility] #[id number], 160, cm, 02/09/20 11:43:00 EST, Height, 42.2, kg, 01/21... Start Date: 02/09/20 Stop Date: 04/09/20 Status: Ordered dicyclomine 10 mg oral capsule 1 capsule = 10 mg, By Mouth, 4 times a day, PRN Pain , Moderate, # 60 capsule, 1 Refills, Maintenance, 02/24/20 12:26:00 EST, Capsule, [facility]/pharmacy #1130, 160, cm, 02/09/20 11:43:00 EST, [...] 0 Refills, Maintenance, 03/05/20 16:16:00 EST, Tablet, [facility]/pharmacy #1130, 160, cm, 02/09/20 11:43:00 EST, Height, 42.2, kg, 02/09/20 11:49:00 EST, Dry Weight Start Date: 03/05/20 Status: Ordered hydroquinone 2% topical cream 1 application, Topically, 2 times a day, Turkish, apply to dark lesions on face, use sunscreen withuse, # 28 Gm, 1 Refills, Maintenance, 10/06/18 13:14:56 EDT, Cream, 1 application Topically 2 timesa day,Instr:Turkish, apply to dark lesions on face,... Start Date: 10/06/18 Status: Ordered Lactaid 3000 units oral tablet 3 tablet = 9,000 units, By Mouth, 3 times a day with meals, # 120 tablet, 0 Refills, Maintenance, 12/08/19 14:49:00 EDT, Tablet, [facility] #[id number], 160, cm, 09/26/19 13:56:00 EDT, Height, 47.8, [...] mL, 0 Refills, Maintenance,12/08/19 14:51:00 EDT, Suspension, [facility] #39753, 160, cm, 09/26/19 13:56:00 EDT, Height, 47.8, [...] mL, 0 Refills, Maintenance, 12/26/19 14:02:00 EDT, [facility] #14411,Drink 240mL every 10-15 minutes until first half [...] 0 Refills, Maintenance, 04/18/19 9:52:00 EST, Tablet, [facility] #64417, 160, cm, 04/18/19 9:08:00 EST, Height, 47.8, kg, 04/04/19 11:54:00 EST, Dry Weight Start Date: 04/18/19 Status: Ordered SUMAtriptan 50 mg oral tablet 1 tablet = 50 mg, By Mouth, Daily, # 18 tablet, 1 Refills, Soft Stop, 03/05/20 16:16:00 EST, Tablet, [facility]/pharmacy #1130, 160, cm, 02/09/20 11:43:00 EST, Height, 42.2, kg, 02/09/20 11:49:00 EST, Dry Weight Start Date: 03/05/20 Status: Ordered Truvada 200 mg-300 mg oral tablet 1 tablet, By Mouth, Daily, # 30 tablet, 0 Refills, Maintenance, 04/19/19 13:05:00 EST, Tablet, [facility] #[id number], 1 tablet By Mouth Daily, 160, cm, 04/18/19 9:08:00 EST, Height, 47.8, kg, 04/04/19 11:54:00 EST, Dry Weight Start Date: 04/19/19 Status: Ordered Tylenol 325 mg oral tablet 650 mg, 2, tablet, By Mouth, Every 6 hours, PRN, not to exceed 4000 mg/day, Turkish label, # 120 tablet, Refills 1, Tot. Refills 1, Maintenance, Pain , Moderate, 03/05/20 16:16:00 EST, Route to Pharmacy Electronically, [facility]/pharmacy #1130, Partial fill... Start Date: 03/05/20 Status: Ordered Vitamin D3 1000 intl units oral capsule 1 capsule = 1,000 International_Units, By Mouth, Daily, # 100 capsule, 0 Refills, Maintenance, 04/18/19 9:51:00 EST, Capsule, [facility] #[id number], 160, cm, 04/18/19 9:08:00 EST, Height, 47.8,kg, [...]
--- OUTSIDE RECORDS SUMMARY | 2022-10-23 01:17 | XMS_ITS | Continuity of Care Document ---
Author Name Unknown Organization [facility] Address Unknown Care Team Providers Care Shingles Roofer Name Role Phone Ezio Cedeño MD Primary Care Physician Encounter [facility] [facility] Date(s): 05/14/21 - 06/13/21 [facility] Allergies, Adverse Reactions, Alerts Substance Reaction Severity [...] MODERATE PAIN, # 120 capsule, 1 Refills, [facility], 160, cm, 04/22/21 10:31:00 EST, Height, 42.2, kg, 02/09/20 11:49:00 EST, Dry Weight Start Date: 05/21/21 Status: Ordered hydroquinone 2% topical cream 1 application, Topically, 2 times a day, Mozambican, apply to dark lesions on face, use sunscreen withuse, # 28 Gm, 1 Refills, Maintenance, 11/08/20 10:16:00 EDT, Cream, [facility] #[id number], 1 application Topically 2 times a day,Instr:Mozambican, a... Start Date: 11/08/20 Status: Ordered meclizine 25 mg oral tablet 1 tablet = 25 mg, By Mouth, 3 times a day, PRN for dizziness, # 90 tablet, 1 Refills, Maintenance, 11/08/20 10:17:00 EDT, Tablet, [facility] #45003, 160, cm, 11/08/20 9:35:00 EDT, Height, 42.2, kg, 02/09/20 11:49:00 EST, Dry Weight Start Date: 11/08/20 Status: Ordered MiraLax oral powder for reconstitution = 17 Gm, By Mouth, Daily, Titrate as needed, # 527 Gm, 1 Refills, Maintenance, 04/22/21 10:51:00 EST, [facility]/pharmacy #1130, Partial fill upon patient [...] mL, 0 Refills, Maintenance, 04/22/21 10:50:00 EST, [facility]/pharmacy #1130, Partial fill upon patient [...] 0 Refills, Maintenance, 11/08/20 10:17:00 EDT, Tablet, [facility] #[id number], 160, cm, 11/08/20 9:35:00 EDT, Height, 42.2, kg, 02/09/20 11:49:00 EST, Dry Weight Start Date: 11/08/20 Status: Ordered SUMAtriptan 50 mg oral tablet 1 tablet = 50 mg, By Mouth, Daily, # 18 tablet, 1 Refills, Soft Stop, 11/08/20 10:17:00 EDT, Tablet, [facility] #[id number], 160, cm, 11/08/20 9:35:00 EDT, Height, 42.2, kg, 02/09/20 11:49:00 EST, Dry Weight Start Date: 11/08/20 Status: Ordered Truvada 200 mg-300 mg oral tablet 1 tablet, By Mouth, Daily, re-start PreP, # 30 tablet, 6 Refills, Maintenance, 05/14/21 8:00:00 EST, Tablet, [facility]/pharmacy #1130, 1 tablet By Mouth Daily,Instr:re-start PreP, 160, cm, 04/22/21 10:31:00 EST, Height, 42.2, kg, 02/09/20 11:49:00 EST, Dry... Start Date: 05/14/21 Status: Ordered Vitamin D3 1000 intl units oral tablet 1 tablet = 25 mcg, By Mouth, Daily, # 90 tablet, 1 Refills, Maintenance, 02/28/21 11:18:00 EST, [facility]/pharmacy #1130, Partial fill upon patient [...]
--- OUTSIDE RECORDS SUMMARY | 2022-10-23 01:17 | XMS_ITS | Continuity of Care Document ---
Author Name Unknown Organization [facility] Address [address] [place] [address]- Care Team Providers Care Executive Manager Name Role Phone Ezio Cedeño MD Primary Care Physician [phone] [place] [facility] [place] 04/09/21 - 06/07/21 [facility] [address], [place] [address] Attending Physician: Not on Staff, Attending MD Referring Physician: Ezio Cedeño MD Allergies, [...] 12/07/12 Gi douglas 1Admin Note: VIS GIVEN equatorial guinean 02/08/08 2Admin Note: vis given dated 10/15/12 Medications dicyclomine 10 mg oral capsule 1 capsule, By Mouth, 4 times a day, PRN NEEDED FOR MODERATE PAIN, # 120 capsule, 1 Refills, [facility] 93741, 160, cm, 04/22/21 10:31:00 EST, Height, 42.2, kg, 02/09/20 11:49:00 EST, Dry Weight Start Date: 05/21/21 Status: Ordered hydroquinone 2% topical cream 1 application, Topically, 2 times a day, Monegasque, apply to dark lesions on face, use sunscreen withuse, # 28 Gm, 1 Refills, Maintenance, 11/08/20 10:16:00 EDT, Cream, [facility] #94901, 1 application Topically 2 times a day,Instr:Monegasque, a... Start Date: 11/08/20 Status: Ordered meclizine 25 mg oral tablet 1 tablet = 25 mg, By Mouth, 3 times a day, PRN for dizziness, # 90 tablet, 1 Refills, Maintenance, 11/08/20 10:17:00 EDT, Tablet, [facility] #63515, 160, cm, 11/08/20 9:35:00 EDT, Height, 42.2, kg, 02/09/20 11:49:00 EST, Dry Weight Start Date: 11/08/20 Status: Ordered MiraLax oral powder for reconstitution = 17 Gm, By Mouth, Daily, Titrate as needed, # 527 Gm, 1 Refills, Maintenance, 04/22/21 10:51:00 EST, [facility]/pharmacy #1130, Partial fill upon patient request if the prescription is for a schedule II opioid drug., 17 Gm By Mouth Daily,Instr:Titrate as ne... Start Date: 04/22/21 Status: Ordered mirtazapine 15 mg oral tablet 1 tablet = 15 mg, By Mouth, Daily at bedtime, Monegasque, # 30 tablet, 2 Refills, Maintenance, 02/27/21 [...] mL, 0 Refills, Maintenance, 04/22/21 10:50:00 EST, [facility]/pharmacy #1130, Partial fill upon patient request if [...] 0 Refills, Maintenance, 11/08/20 10:17:00 EDT, Tablet, [facility] #22431, 160, cm, 11/08/20 9:35:00 EDT, Height, 42.2, kg, 02/09/20 11:49:00 EST, Dry Weight Start Date: 11/08/20 Status: Ordered SUMAtriptan 50 mg oral tablet 1 tablet = 50 mg, By Mouth, Daily, # 18 tablet, 1 Refills, Soft Stop, 11/08/20 10:17:00 EDT, Tablet, [facility] #66734, 160, cm, 11/08/20 9:35:00 EDT, Height, 42.2, [...]
--- OUTSIDE RECORDS SUMMARY | 2022-10-23 01:17 | XMS_ITS | Continuity of Care Document ---
Author Name Unknown Organization [facility] Address [address] [place] [address]- Care Team Providers Care Enterprise Account Executive Name Role Phone Marilinrose JACKSONJillian Primary Care Physician [facility] Date[facility]s): 05/19/22 - 06/18/22 [facility] [address], [place] [address] Attending Physician: Janet Lundberg Admitting Physician: AdmtrJanet [...] 8 patch, 6 Refills, Maintenance, 01/08/22 20:12:00EDT, [facility]/pharmacy #1130, Partial fill upon patient [...] 120 capsule, 1 Refills, 03/05/22 12:35:00 EST, [facility]/pharmacy #1130, 160, cm, 01/08/22 9:48:00 EDT, Height Start Date: 03/05/22 Status: Ordered escitalopram 10 mg oral tablet 1 tablet = 10 mg, By Mouth, Daily, Take half tablet daily for 2 weeks, then 1 tablet daily thereafter Malian label please, # 90 tablet, 0 Refills, Maintenance, 02/12/22 11:01:00 EST, Tablet, [facility]/pharmacy #1130, Partial fill upon patient [...] 05/19/22 13:53:00 EST, Route to Pharmacy Electronically, [facility]/pharmacy #1130, Partial fill upon patient [...] Refills, Soft Stop, 05/19/22 13:52:00 EST, Tablet, [facility]/pharmacy #1130, 160, cm, 05/19/22 13:39:00 EST, Height Start Date: 05/19/22 Status: Ordered Truvada 200 mg-300 mg oral tablet 1 tablet, By Mouth, Daily, re-start PreP, # 30 tablet, 11 Refills, Maintenance, 05/19/22 13:52:00 EST, Tablet, [facility]/pharmacy #1130, 1 tablet By Mouth Daily,Instr:re-start PreP, 160, cm, 05/19/22 13:39:00 EST, Height Start Date: 05/19/22 Status: Ordered Vitamin D3 1000 intl units oral tablet 1 tablet = 25 mcg, By Mouth, Daily, # 90 tablet, 1 Refills, Maintenance, 02/12/22 10:33:00 EST, [facility]/pharmacy #1130, Partial fill upon patient [...] VERIFY Event Display: Patient Education/Instruction Authored Date: [id number] [facility] Clinical Summary Person Information Visit Date 10/20/2017 11:20 AM Name KATERIN COLEMAN Age 46 Years 1970 12:00 AM PCP Romel Magallon MD PCP Sex Female Race White Ethnicity / Language Malian You can now view a summary of your hospital visit from the comfort of your home through a free online portal called [employer]. [employer] is a website that allows you to securely view your medical information including discharge summary, medications and follow-up visits. You can also send a secure electronic message to your doctor???s office to request appointments, renew medicationsor just ask a question. You can enroll at [email or web address] or register during your next office visit. Smoking can increase your chances of developing chronic health problems and can cause harmful effects to other family members in your house. If you smoke, you are strongly encouraged to quit. Please call the [place] Smokers??? Helpline at 7-028-IXRM-NOW (or ) or log on to [email or web address] for more information. The National Suicide Prevention Hotline is available 13/10 if you or someone you know needs to find a reason to keep living. By calling 5-792-874-qbcb (4321) you'll be connected to a skilled, trained [...] needed as needed for pain. Label in Malian. Refills: 0. Diclofenac Topical (diclofenac 1% topical gel) 1 marisa Topically 4 times a day as needed for pain. Label in Malian. Refills: 0. Dicyclomine (dicyclomine 20 mg oral [...] planted Left FA 06/30/17 at 1015am Lot [id number] exp 08/20/2018. Refills: 0. Future Orders No [...] primary care provider, you may find a [facility] provider by calling [facility] [employer] Link at [phone]. For information about the plan of care including goals and instructions for your diagnosis, please see the patient education orders section of this document. Patient Visit Summary: Future Appointments: Type Location Start Finish State Physical [facility] 11/18/2017 9:00 AM 11/18/2017 9:40 AM Pending Return [facility] 12/16/2017 3:15 PM 12/16/2017 3:45 PM Pending Follow-Up Instructions With: Address: When: [facility] NURSE PURPLE YELLOW 10/09/2010 1:41 PM Comments: PPD READING Patient Education Materials Additional Instructions: * Kavita Ramírez: PERFORM, SIGN, VERIFY Event Display: Patient Education/Instruction Authored Date: [id number] [facility] Clinical Summary Person Information Name KATERIN [...] once, planted right forearm on 10/07/10, lot# [id number], exp 01/23/12, to be read in 48-72hrs, [...] primary care provider, you may find a [facility] provider by calling [facility] [employer] at [phone]. Patient Education Information Follow-up Details: With: Address: [facility]: [facility] NURSE PURPLE YELLOW 10/09/2010 13:41:00 Comments: PPD READING Patient Education Material: * Comfort Campbell: PERFORM Event Display: Laboratory Results Scanned Authored Date: [id number] Patient Care team information Care Team Personnel Name: Jillian Bautista DO Position: [facility] Resident Member Role: PCP Address: Address: [address] [place] [address]- Care Team Related Persons Name: DANA MARTIN Address: home [address] [place] [address] Name: TERENCE MARTIN Name: CHAVA VASQUEZ Address: home [address] [place] [address] Name: JONES TAPIA
--- OUTSIDE RECORDS SUMMARY | 2022-10-23 01:17 | XMS_ITS | Continuity of Care Document ---
Author Name Unknown Organization [facility] Address [address] [place] [phone]- Care Team Providers Care Caramel Cutter Machine Name Role Phone Romel Magallon MD Primary Care Physician [facility]19 - 03/25/[address] [address]- [facility] Attending Physician: Yg Ibanez MD Admitting Physician: Yg Ibanez MD Referring Physician: Romel Magallon MD Allergies, [...] given dated 10/15/12 2Admin Note: VIS GIVEN new zealander 02/08/08 Medications dicyclomine 10 mg oral capsule [...] 1 application, Topically, 2 times a day, Malagasy, apply to dark lesions on face, use sunscreen withuse, # 28 Gm, 1 Refills, Maintenance, 10/06/18 13:14:56 EDT, Cream, 1 application Topically 2 timesa day,Instr:Malagasy, apply to dark lesions on face,... Start [...]
--- OUTSIDE RECORDS SUMMARY | 2022-10-23 01:17 | XMS_ITS | Continuity of Care Document ---
Author Name Unknown Organization [facility] Address [address] [place] [address]- Care Team Providers Care Nail Technician Teacher Name Role Phone Naun BATRES, Romel Ma Primary Care Physician [phone] [facility] Date[facility] 02/24/19 - 03/06/19 [facility] [address] [place] [address]- [facility] Attending Physician: Janet Lundberg Admitting Physician: Janet [...] 1 application, Topically, 2 times a day, Norwegian, apply to dark lesions on face, use sunscreen withuse, # 28 Gm, 1 Refills, Maintenance, 10/06/18 13:14:56 EDT, Cream, 1 application Topically 2 timesa day,Instr:Norwegian, apply to dark lesions on face,... Start [...]
--- OUTSIDE RECORDS SUMMARY | 2022-10-23 01:17 | XMS_ITS | Continuity of Care Document ---
Author Name Unknown Organization [facility] Address [address] [place] [address]- Care Team Providers Care Ring Making Machine Operator Name Role Phone Romel Magallon MD Primary Care Physician [facility]s): 04/04/19 - 04/11/19 [facility] [address] [place] [address]- [facility] Attending Physician: Kannan Wasserman MD Referring Physician: Romel Magallon MD Allergies, [...] given dated 10/15/12 2Admin Note: VIS GIVEN greenlandic 02/08/08 Medications dicyclomine 10 mg oral capsule [...] 1 application, Topically, 2 times a day, Uruguayan, apply to dark lesions on face, use sunscreen withuse, # 28 Gm, 1 Refills, Maintenance, 10/06/18 13:14:56 EDT, Cream, 1 application Topically 2 timesa day,Instr:Uruguayan, apply to dark lesions on face,... Start [...] PO QID Start Date: 05/17/18 Status: Ordered naproxen 500 mg oral tablet 1 tablet = 500 mg, By Mouth, 2 times a day, for 10 days, # 20 tablet, 0 Refills, Acute 04/14/19 12:27:00 EST, 04/04/19 12:27:00 EST, Tablet, [facility] #30623, 160, cm, 04/04/19 11:54:00 EST, Height, 47.8, kg, 04/04/19 11:54:00 EST, Dry Weight Start Date: 04/04/19 Stop Date: 04/14/19 Status: Ordered SUMAtriptan 50 mg oral tablet [...] oldest [Reference Range]: 1 Height 160.00 cm (04/04/19 11:54 AM) Oxygen Saturation [94-100 %] 100 % (04/04/19 11:54 AM) Pulse Rate [55-90 bpm] 99 bpm *H* (04/04/19 11:54 AM) Blood Pressure [90-138/55-84 mm Hg] 116/ 59mm Hg (04/04/19 11:54 AM) Respiratory Rate [16-30 br/min] 18 br/mi n (04/04/19 11:54 AM) Temperature [96.8-100.4 DegF] 98.9 DegF (04/04/19 11:54 AM) Mode of Delivery (Oxygen) Room air (04/04/19 11:54 AM) Blood pressure sites Arm, right (04/04/19 11:54 AM) Temperature Route Oral (04/04/19 11:54 AM) Dry Weight 47.8 kg (04/04/19 11:54 AM) Dry Weight Obtained Via Standing scale (04/04/19 11:54 AM) Social History Social History Type Response Smoking Status Never smoker entered on: 11/03/13 Sex Female
--- OUTSIDE RECORDS SUMMARY | 2022-10-23 01:17 | XMS_ITS | Continuity of Care Document ---
Author Name Unknown Organization [facility] Address [address] [place] [address]- Care Team Providers Care Manager Car Name Role Phone Navi Bautista DObelen Primary Care Physician [facility] 08/22[facility]21 - 10/18/21 [facility] [address] [place], [place] [address] Attending Physician: Not on Staff, Attending [...] 12/07/12 Gi douglas 1Admin Note: VIS GIVEN turkmen 02/08/08 2Admin Note: vis given dated 10/15/12 [...] MODERATE PAIN, # 120 capsule, 1 Refills, [facility], 160, cm, 04/22/21 10:31:00 EST, Height, 42.2, kg, 02/09/20 11:49:00 EST, Dry Weight Start Date: 05/21/21 Status: Ordered hydroquinone 2% topical cream 1 application, Topically, 2 times a day, Guinean, apply to dark lesions on face, use sunscreen withuse, # 28 Gm, 1 Refills, Maintenance, 11/08/20 10:16:00 EDT, Cream, [facility] #77289, 1 application Topically 2 times a day,Instr:Guinean, a... Start Date: 11/08/20 Status: Ordered meclizine 25 mg oral tablet 1 tablet = 25 mg, By Mouth, 3 times a day, PRN for dizziness, # 90 tablet, 1 Refills, Maintenance, 11/08/20 10:17:00 EDT, Tablet, [facility] #05309, 160, cm, 11/08/20 9:35:00 EDT, Height, 42.2, [...] at bedtime, # 30 tablet, 3 Refills, [facility] 52798, 160, cm, 07/29/21 11:45:00 EDT, Height, 42.2, kg, 02/09/20 11:49:00 EST, Dry Weight Start Date: 08/06/21 Status: Ordered NuLYTELY with Flavor Packs oral powder for reconstitution See Instructions, Drink 240mL every 15-20 minutes until first half is gone. Repeat 6 hours prior toprocedure., # 4,000 mL, 0 Refills, Maintenance, 04/22/21 10:50:00 EST, [facility]/pharmacy #1130, Partial fill upon patient request if [...] 0 Refills, Maintenance, 11/08/20 10:17:00 EDT, Tablet, [facility] #32336, 160, cm, 11/08/20 9:35:00 EDT, Height, 42.2, kg, 02/09/20 11:49:00 EST, Dry Weight Start Date: 11/08/20 Status: Ordered SUMAtriptan 50 mg oral tablet 1 tablet = 50 mg, By Mouth, Daily, # 18 tablet, 1 Refills, Soft Stop, 11/08/20 10:17:00 EDT, Tablet, [facility] #50388, 160, cm, 11/08/20 9:35:00 EDT, Height, 42.2, kg, 02/09/20 11:49:00 EST, Dry Weight Start Date: 11/08/20 Status: Ordered Truvada 200 mg-300 mg oral tablet 1 tablet, By Mouth, Daily, re-start PreP, # 30 tablet, 6 Refills, Maintenance, 05/14/21 8:00:00 EST, Tablet, [facility]/pharmacy #1130, 1 tablet By Mouth Daily,Instr:re-start PreP, 160, cm, 04/22/21 10:31:00 EST, Height, 42.2, kg, 02/09/20 11:49:00 EST, Dry... Start Date: 05/14/21 Status: Ordered Tylenol Extra Strength 500 mg oral tablet 2 tablet = 1,000 mg, By Mouth, Every 6 hours, # 24 tablet, 0 Refills, Maintenance, 07/29/21 11:16:00 EDT, [facility] #[id number], Partial fill upon patient request if the [...]
--- OUTSIDE RECORDS SUMMARY | 2022-10-23 01:17 | XMS_ITS | Continuity of Care Document ---
Author Name Unknown Organization [facility] Address [address] [place] [address]- Care Team Providers Care Manager Telemarketing Name Role Phone Navi Bautista DObelen Primary Care Physician [facility] 03/04[facility]22 - 04/03/22 [facility] [address] [place], [place] [address] Allergies, Adverse Reactions, Alerts Substance Reaction [...] 12/07/12 Gi douglas 1Admin Note: VIS GIVEN south african 02/08/08 2Admin Note: vis given dated 10/15/12 Medications Combipatch 0.05 mg-0.14 mg/24 hours transdermal film, extended release 1 patch, Topically, Every Thursday and , # 8 patch, 6 Refills, Maintenance, 01/08/22 20:12:00EDT, [facility]/pharmacy #1130, Partial fill upon patient request [...] 2 weeks, then 1 tablet daily thereafter Egyptian label please, # 90 tablet, 0 Refills, Maintenance, 02/12/22 11:01:00 EST, Tablet, [facility]/pharmacy #1130, Partial fill upon patient request i... Start Date: 02/12/22 Stop Date: 05/13/22 Status: Ordered MiraLax oral powder for reconstitution = 17 Gm, By Mouth, Daily, Titrate as needed, # 527 Gm, 1 Refills, Maintenance, 04/22/21 10:51:00 EST, [facility]/pharmacy #1130, Partial fill upon patient request [...] Team Personnel Name: Jillian Bautista DO Position: [facility] Resident Member Role: PCP Address: Address: [address] [place] [address]- Care Team Related Persons Name: DANA MARTIN Address: [address] [place] [address] Name: TERENCE MARTIN Name: CHAVA VASQUEZ Address: [address] [place] [address] Name: PT, [facility] NONE
--- OUTSIDE RECORDS SUMMARY | 2022-10-23 01:17 | XMS_ITS | Continuity of Care Document ---
Author Name Unknown Organization [facility] Address [address] [place] [address]- Care Team Providers Care Optical Glass Etcher Name Role Phone Navi Bautista DObelen Primary Care Physician Encounter [facility] Date(s): 11/18/21 - 12/18/21 [facility] [address] [place], [place] [address] Allergies, Adverse Reactions, Alerts Substance [...] 12/07/12 Gi douglas 1Admin Note: VIS GIVEN setswana 02/08/08 2Admin Note: vis given dated 10/15/12 Medications Combipatch 0.05 mg-0.14 mg/24 hours transdermal film, extended release 1 patch, Topically, Every Thursday and , # 8 patch, 2 Refills, Maintenance, 08/06/21 19:38:00EDT, [facility]/pharmacy #[id number], Partial fill upon patient request if the prescription is for a schedule IIopioid drug., 1 patch Topically Every Thursday and .. Start Date: 08/06/21 Status: Ordered dicyclomine 10 mg oral capsule 1 capsule, By Mouth, 4 times a day, PRN NEEDED FOR MODERATE PAIN, # 120 capsule, 1 Refills, [id number], 160, cm, 04/22/21 10:31:00 EST, Height, 42.2, kg, 02/09/20 11:49:00 EST, Dry Weight Start Date: 05/21/21 Status: Ordered hydroquinone 2% topical cream 1 application, Topically, 2 times a day, French, apply to dark lesions on face, use sunscreen withuse, # 28 Gm, 1 Refills, Maintenance, 11/08/20 10:16:00 EDT, Cream, [facility] #[id number], 1 application Topically 2 times a day,Instr:French, a... Start Date: 11/08/20 Status: Ordered meclizine 25 mg oral tablet 1 tablet = 25 mg, By Mouth, 3 times a day, PRN for dizziness, # 90 tablet, 1 Refills, Maintenance, 11/08/20 10:17:00 EDT, Tablet, [facility] #[id number], 160, cm, 11/08/20 9:35:00 EDT, Height, 42.2, kg, 02/09/20 11:49:00 EST, Dry Weight Start Date: 11/08/20 Status: Ordered MiraLax oral powder for reconstitution = 17 Gm, By Mouth, Daily, Titrate as needed, # 527 Gm, 1 Refills, Maintenance, 04/22/21 10:51:00 EST, [facility]/pharmacy #[id number], Partial fill upon patient request if the prescription is for a schedule II opioid drug., 17 Gm By Mouth Daily,Instr:Titrate as ne... Start Date: 04/22/21 Status: Ordered mirtazapine 7.5 mg oral tablet 1 tablet, By Mouth, Daily at bedtime, # 30 tablet, 3 Refills, [facility], 160, cm, 07/29/21 11:45:00 EDT, Height, 42.2, kg, 02/09/20 11:49:00 EST, Dry Weight Start Date: 08/06/21 Status: Ordered NuLYTELY with Flavor Packs oral powder for reconstitution See Instructions, Drink 240mL every 15-20 minutes until first half is gone. Repeat 6 hours prior toprocedure., # 4,000 mL, 0 Refills, Maintenance, 04/22/21 10:50:00 EST, [facility]/pharmacy #[id number], Partial fill upon patient [...] 0 Refills, Maintenance, 11/08/20 10:17:00 EDT, Tablet, [facility] #[id number], 160, cm, 11/08/20 9:35:00 EDT, Height, 42.2, kg, 02/09/20 11:49:00 EST, Dry Weight Start Date: 11/08/20 Status: Ordered SUMAtriptan 50 mg oral tablet 1 tablet = 50 mg, By Mouth, Daily, PRN as needed for migraine headache, may repeat dose in 2 hours if needed, # 18 tablet, 0 Refills, Soft Stop, 11/18/21 15:46:00 EDT, Tablet, [facility]/pharmacy #1130, 160, cm, 08/22/21 14:32:00 EDT, [...] tablet, 0 Refills, Maintenance, 07/29/21 11:16:00 EDT, [facility] #[id number], Partial fill upon patient request if the [...] Personnel Name: Jillian Bautista DO Address: Address: [address] [place] [address] Adult [place], [place] [address]
--- OUTSIDE RECORDS SUMMARY | 2022-10-23 01:17 | XMS_ITS | Continuity of Care Document ---
Author Name Unknown Organization [facility] Address [address] [place] [address]- Care Team Providers Care Information Broker Name Role Phone Ezio Cedeño MD Primary Care Physician [phone] Encounter [facility] Date(s): 06/17/21 - 07/17/21 [facility] [address] [place], [place] [address] Allergies, Adverse Reactions, Alerts Substance [...] 12/07/12 Gi douglas 1Admin Note: VIS GIVEN tamazight 02/08/08 2Admin Note: vis given dated 10/15/12 Medications dicyclomine 10 mg oral capsule 1 capsule, By Mouth, 4 times a day, PRN NEEDED FOR MODERATE PAIN, # 120 capsule, 1 Refills, [id number], 160, cm, 04/22/21 10:31:00 EST, Height, 42.2, kg, 02/09/20 11:49:00 EST, Dry Weight Start Date: 05/21/21 Status: Ordered hydroquinone 2% topical cream 1 application, Topically, 2 times a day, Nepalese, apply to dark lesions on face, use sunscreen withuse, # 28 Gm, 1 Refills, Maintenance, 11/08/20 10:16:00 EDT, Cream, [facility] #[id number], 1 application Topically 2 times a day,Instr:Nepalese, a... Start Date: 11/08/20 Status: Ordered meclizine 25 mg oral tablet 1 tablet = 25 mg, By Mouth, 3 times a day, PRN for dizziness, # 90 tablet, 1 Refills, Maintenance, 11/08/20 10:17:00 EDT, Tablet, [facility] #[id number], 160, cm, 11/08/20 9:35:00 EDT, Height, 42.2, [...] 0 Refills, Maintenance, 11/08/20 10:17:00 EDT, Tablet, [facility] #[id number], 160, cm, 11/08/20 9:35:00 EDT, Height, 42.2, kg, 02/09/20 11:49:00 EST, Dry Weight Start Date: 11/08/20 Status: Ordered SUMAtriptan 50 mg oral tablet 1 tablet = 50 mg, By Mouth, Daily, # 18 tablet, 1 Refills, Soft Stop, 11/08/20 10:17:00 EDT, Tablet, [facility] #[id number], 160, cm, 11/08/20 9:35:00 EDT, Height, 42.2, kg, 02/09/20 11:49:00 EST, Dry Weight Start Date: 11/08/20 Status: Ordered Truvada 200 mg-300 mg oral tablet 1 tablet, By Mouth, Daily, re-start PreP, # 30 tablet, 6 Refills, Maintenance, 05/14/21 8:00:00 EST, Tablet, [facility]/pharmacy #1130, 1 tablet By Mouth Daily,Instr:re-start PreP, [...]
--- OUTSIDE RECORDS SUMMARY | 2022-10-23 01:17 | XMS_ITS | Continuity of Care Document ---
Author Name Unknown Organization [facility] Address [address] [place] [address]- Care Team Providers Care Manager Critical Care Unit Name Role Phone Davidson BATRES, Ezio Laguerre Primary Care Physician Encounter [facility] Date(s): 02/25/21 - 03/27/21 [facility] [address] [place], [place] [address] Attending Physician: Janet Lundberg Admitting Physician: AdmtrJanet Referring Physician: AdmtrJanet Allergies, Adverse Reactions, Alerts [...] 1 Refills, Soft Stop, 11/08/20 10:17:00 EDT, [facility] #[id number], 160, cm, 11/08/20 9:35:00 EDT, Height, 42.2, kg,02/09/20 11:49:00 EST, Dry Weight Start Date: 11/08/20 Status: Ordered dicyclomine 10 mg oral capsule 1 capsule = 10 mg, By Mouth, 4 times a day, # 120 capsule, 1 Refills, Maintenance, 02/21/21 13:02:00 EST, Capsule, [facility]/pharmacy #1130, Partial fill upon patient request if the prescription is for a schedule II opioid drug., 160, cm, 11/08/20 9:35:00 E... Start Date: 02/21/21 Stop Date: 04/22/21 Status: Ordered hydroquinone 2% topical cream 1 application, Topically, 2 times a day, Liberian, apply to dark lesions on face, use sunscreen withuse, # 28 Gm, 1 Refills, Maintenance, 11/08/20 10:16:00 EDT, Cream, [facility] #[id number], 1 application Topically 2 times a day,Instr:Liberian, a... Start Date: 11/08/20 Status: Ordered meclizine 25 mg oral tablet 1 tablet = 25 mg, By Mouth, 3 times a day, PRN for dizziness, # 90 tablet, 1 Refills, Maintenance, 11/08/20 10:17:00 EDT, Tablet, [facility] #[id number], 160, cm, 11/08/20 9:35:00 EDT, Height, 42.2, kg, 02/09/20 11:49:00 EST, Dry Weight Start Date: 11/08/20 Status: Ordered mirtazapine 15 mg oral tablet 1 tablet = 15 mg, By Mouth, Daily at bedtime, Liberian, # 30 tablet, 2 Refills, Maintenance, 02/27/21 8:35:00 EST, Tablet, [facility]/pharmacy #1130, Partial fill upon patient [...] 0 Refills, Maintenance, 11/08/20 10:17:00 EDT, Tablet, [facility] #[id number], 160, cm, 11/08/20 9:35:00 EDT, Height, 42.2, kg, 02/09/20 11:49:00 EST, Dry Weight Start Date: 11/08/20 Status: Ordered SUMAtriptan 50 mg oral tablet 1 tablet = 50 mg, By Mouth, Daily, # 18 tablet, 1 Refills, Soft Stop, 11/08/20 10:17:00 EDT, Tablet, [facility] #[id number], 160, cm, 11/08/20 9:35:00 EDT, Height, 42.2, kg, 02/09/20 11:49:00 EST, Dry Weight Start Date: 11/08/20 Status: Ordered Vitamin D3 1000 intl units oral tablet 1 tablet = 25 mcg, By Mouth, Daily, # 90 tablet, 1 Refills, Maintenance, 02/28/21 11:18:00 EST, [facility]/pharmacy #1130, Partial fill upon patient [...]
--- OUTSIDE RECORDS SUMMARY | 2022-10-23 01:17 | XMS_ITS | Continuity of Care Document ---
Author Name Unknown Organization [facility] Address [address] [place] [address]- Care Team Providers Care Guide Dog Trainer Name Role Phone Davidson BATRES, Ezio Laguerre Primary Care Physician [phone] Encounter [facility] Date(s): 04/03/21 - 05/03/21 [facility] [address] [place] [id number] Allergies, Adverse Reactions, Alerts Substance Reaction [...] 12/07/12 Gi douglas 1Admin Note: VIS GIVEN eritrean 02/08/08 2Admin Note: vis given dated 10/15/12 Medications dicyclomine 10 mg oral capsule See Instructions, TAKE ONE CAPSULE BY MOUTH FOUR TIMES DAILY, # 120 capsule, 1 Refills, Soft Stop, 11/08/20 10:17:00 EDT, [facility] #[id number], 160, cm, 11/08/20 9:35:00 EDT, Height, 42.2, kg,02/09/20 11:49:00 EST, Dry Weight Start Date: 11/08/20 Status: Ordered dicyclomine 10 mg oral capsule 1 capsule = 10 mg, By Mouth, 4 times a day, # 120 capsule, 1 Refills, Maintenance, 02/21/21 13:02:00 EST, Capsule, [facility]/pharmacy #1130, Partial fill upon patient request if the prescription is for a schedule II opioid drug., 160, cm, 11/08/20 9:35:00 E... Start Date: 02/21/21 Stop Date: 04/22/21 Status: Ordered hydroquinone 2% topical cream 1 application, Topically, 2 times a day, Martiniquais, apply to dark lesions on face, use sunscreen withuse, # 28 Gm, 1 Refills, Maintenance, 11/08/20 10:16:00 EDT, Cream, [facility] #[id number], 1 application Topically 2 times a day,Instr:Martiniquais, a... Start Date: 11/08/20 Status: Ordered meclizine 25 mg oral tablet 1 tablet = 25 mg, By Mouth, 3 times a day, PRN for dizziness, # 90 tablet, 1 Refills, Maintenance, 11/08/20 10:17:00 EDT, Tablet, [facility] #[id number], 160, cm, 11/08/20 9:35:00 EDT, Height, 42.2, [...] 15 mg, By Mouth, Daily at bedtime, Martiniquais, # 30 tablet, 2 Refills, Maintenance, 02/27/21 8:35:00 EST, Tablet, [facility]/pharmacy #1130, Partial fill upon patient request if the prescription is for a schedule II opioid drug., 160, cm, 02/27/21 8:... Start Date: 02/27/21 Status: Ordered mirtazapine 7.5 mg oral tablet 1 tablet = 7.5 mg, By Mouth, Daily at bedtime, # 30 tablet, 3 Refills, Maintenance, 04/09/21 9:45:00 EST, [facility]/pharmacy #1130, Partial fill [...] 0 Refills, Maintenance, 11/08/20 10:17:00 EDT, Tablet, [facility] #[id number], 160, cm, 11/08/20 9:35:00 EDT, Height, 42.2, kg, 02/09/20 11:49:00 EST, Dry Weight Start Date: 11/08/20 Status: Ordered SUMAtriptan 50 mg oral tablet 1 tablet = 50 mg, By Mouth, Daily, # 18 tablet, 1 Refills, Soft Stop, 11/08/20 10:17:00 EDT, Tablet, [facility] #[id number], 160, cm, 11/08/20 9:35:00 EDT, Height, 42.2, kg, 02/09/20 11:49:00 EST, Dry Weight Start Date: 11/08/20 Status: Ordered Vitamin D3 1000 intl units oral tablet 1 tablet = 25 mcg, By Mouth, Daily, # 90 tablet, 1 Refills, Maintenance, 02/28/21 11:18:00 EST, [facility]/pharmacy #1130, Partial fill [...]
--- OUTSIDE RECORDS SUMMARY | 2022-10-23 01:17 | XMS_ITS | Continuity of Care Document ---
Author Name Unknown Organization [facility] Address [address] [place] [address]- Care Team Providers Care Registered Dietician Name Role Phone Davidson BATRES, Ezio Laguerre Primary Care Phys[id number] Date(s[facility] 02/25[facility]21 - 03/04/21 [facility] [address] [place], [place] [address] Attending Physician: Chrissy Rivera MD Referring Physician: [...] 1 Refills, Soft Stop, 11/08/20 10:17:00 EDT, [facility] #[id number], 160, cm, 11/08/20 9:35:00 EDT, Height, 42.2, kg,02/09/20 11:49:00 EST, Dry Weight Start Date: 11/08/20 Status: Ordered dicyclomine 10 mg oral capsule 1 capsule = 10 mg, By Mouth, 4 times a day, # 120 capsule, 1 Refills, Maintenance, 02/21/21 13:02:00 EST, Capsule, [facility]/pharmacy #1130, Partial fill upon patient request if the prescription is for a schedule II opioid drug., 160, cm, 11/08/20 9:35:00 E... Start Date: 02/21/21 Stop Date: 04/22/21 Status: Ordered hydroquinone 2% topical cream 1 application, Topically, 2 times a day, Cypriot, apply to dark lesions on face, use sunscreen withuse, # 28 Gm, 1 Refills, Maintenance, 11/08/20 10:16:00 EDT, Cream, [facility] #[id number], 1 application Topically 2 times a day,Instr:Cypriot, a... Start Date: 11/08/20 Status: Ordered meclizine 25 mg oral tablet 1 tablet = 25 mg, By Mouth, 3 times a day, PRN for dizziness, # 90 tablet, 1 Refills, Maintenance, 11/08/20 10:17:00 EDT, Tablet, [facility] #57614, 160, cm, 11/08/20 9:35:00 EDT, Height, 42.2, kg, 02/09/20 11:49:00 EST, Dry Weight Start Date: 11/08/20 Status: Ordered mirtazapine 15 mg oral tablet 1 tablet = 15 mg, By Mouth, Daily at bedtime, Cypriot, # 30 tablet, 2 Refills, Maintenance, 02/27/21 8:35:00 EST, Tablet, [facility]/pharmacy #1130, Partial fill upon patient request [...] 0 Refills, Maintenance, 11/08/20 10:17:00 EDT, Tablet, [facility] #[id number], 160, cm, 11/08/20 9:35:00 EDT, Height, 42.2, kg, 02/09/20 11:49:00 EST, Dry Weight Start Date: 11/08/20 Status: Ordered SUMAtriptan 50 mg oral tablet 1 tablet = 50 mg, By Mouth, Daily, # 18 tablet, 1 Refills, Soft Stop, 11/08/20 10:17:00 EDT, Tablet, [facility] #[id number], 160, cm, 11/08/20 9:35:00 EDT, Height, 42.2, kg, 02/09/20 11:49:00 EST, Dry Weight Start Date: 11/08/20 Status: Ordered Vitamin D3 1000 intl units oral tablet 1 tablet = 25 mcg, By Mouth, Daily, # 90 tablet, 1 Refills, Maintenance, 02/28/21 11:18:00 EST, [facility]/pharmacy #1130, Partial fill upon patient request [...]
--- OUTSIDE RECORDS SUMMARY | 2022-10-23 01:17 | XMS_ITS | Continuity of Care Document ---
Author Name Unknown Organization [facility] Address [address] [place] [address]- Care Team Providers Care Oral Communication Instructor Name Role Phone Naun BATRES, Romel Ma Primary Care Physician [phone] Encounter [facility] Date(s): 05/13/19 - 05/23/19 [facility] [address] [place] [address]- [facility] Attending Physician: Janet Lundberg Admitting [...] given dated 10/15/12 2Admin Note: VIS GIVEN frisian 02/08/08 Medications dicyclomine 10 mg oral capsule [...] 05/13/19 12:22:00 EST, Route to Pharmacy Electronically, [facility] #[id number], 160, cm, 05/13/19 11:57:00 EST, Height, 47.8... Start Date: 05/13/19 Status: Ordered hydroquinone 2% topical cream 1 application, Topically, 2 times a day, Urdu, apply to dark lesions on face, use sunscreen withuse, # 28 Gm, 1 Refills, Maintenance, 10/06/18 13:14:56 EDT, Cream, 1 application Topically 2 timesa day,Instr:Urdu, apply to dark lesions on face,... Start [...] Refills, Maintenance, 04/18/19 9:51:00 EST, REC Powder, [facility] #[id number], 17 Gm By Mouth 2 times a day,PRN:Constipation,Instr:dissolve in water... Start Date: 04/18/19 Status: Ordered Nabumetone Tablet TK 1 T PO QID Start Date: 05/17/18 Status: Ordered simethicone 80 mg oral tablet 1 tablet = 80 mg, Chew, 3 times a day after meals, PRN as needed for gas, # 60 tablet, 0 Refills, Maintenance, 04/18/19 9:52:00 EST, Tablet, [facility] #[id number], 160, cm, 04/18/19 9:08:00 EST, Height, 47.8, kg, 04/04/19 11:54:00 EST, Dry Weight Start Date: 04/18/19 Status: Ordered SUMAtriptan 50 mg oral tablet 1 tablet = 50 mg, By Mouth, Daily, # 18 tablet, 1 Refills, Soft Stop, 04/18/19 9:51:00 EST, Tablet,[facility] #[id number], 160, cm, 04/18/19 9:08:00 EST, Height, 47.8, kg, 04/04/19 11:54:00 EST, Dry Weight Start Date: 04/18/19 Status: Ordered Truvada 200 mg-300 mg oral tablet 1 tablet, By Mouth, Daily, # 30 tablet, 2 Refills, Maintenance, 04/21/19 8:52:00 EST, Tablet, [facility] #[id number], 1 tablet By Mouth Daily, 160, cm, 04/18/19 9:08:00 EST, Height, 47.8, kg, 04/04/19 11:54:00 EST, Dry Weight Start Date: 04/21/19 Status: Ordered Truvada 200 mg-300 mg oral tablet 1 tablet, By Mouth, Daily, # 30 tablet, 0 Refills, Maintenance, 04/19/19 13:05:00 EST, Tablet, [facility] #[id number], 1 tablet By Mouth Daily, 160, cm, 04/18/19 9:08:00 EST, Height, 47.8, kg, 04/04/19 11:54:00 EST, Dry Weight Start Date: 04/19/19 Status: Ordered Vitamin D3 1000 intl units oral capsule 1 capsule = 1,000 International_Units, By Mouth, Daily, # 100 capsule, 0 Refills, Maintenance, 04/18/19 9:51:00 EST, Capsule, [facility] #[id number], 160, cm, 04/18/19 9:08:00 EST, Height, 47.8,kg, [...]
--- OUTSIDE RECORDS SUMMARY | 2022-10-23 01:17 | XMS_ITS | Continuity of Care Document ---
Author Name Unknown Organization [facility] Address [address] [place] [id number]- Care Team Providers Care Vendor Specialist Name Role Phone Jillian Bautista DO Primary Care Physician Encounter [facility] Date(s): 01/08/22 - 02/07/[address] [address] Attending Physician: Janet Lundberg Admitting Physician: AdmJanet wynn Referring Physician: Admtr, Janet Allergies, Adverse Reactions, Alerts Substance Reaction Severity [...] 12/07/12 Gi douglas 1Admin Note: VIS GIVEN burundian 02/08/08 2Admin Note: vis given dated 10/15/12 Medications Combipatch 0.05 mg-0.14 mg/24 hours transdermal film, extended release 1 patch, Topically, Every Thursday and , # 8 patch, 6 Refills, Maintenance, 01/08/22 20:12:00EDT, [facility]/pharmacy #1130, Partial fill upon patient request if the prescription is for a schedule IIopioid drug., 1 patch Topically Every Thursday and .. Start Date: 01/08/22 Status: Ordered dicyclomine 10 mg oral capsule 1 capsule, By Mouth, 4 times a day, PRN NEEDED FOR MODERATE PAIN, # 120 capsule, 1 Refills, [id number], 160, cm, 04/22/21 10:31:00 EST, Height, 42.2, kg, 02/09/20 11:49:00 EST, Dry Weight Start Date: 05/21/21 Status: Ordered hydroquinone 2% topical cream 1 application, Topically, 2 times a day, Greenlandic, apply to dark lesions on face, use sunscreen withuse, # 28 Gm, 1 Refills, Maintenance, 11/08/20 10:16:00 EDT, Cream, [facility] #57137, 1 application Topically 2 times a day,Instr:Greenlandic, a... Start Date: 11/08/20 Status: Ordered meclizine 25 mg oral tablet 1 tablet = 25 mg, By Mouth, 3 times a day, PRN for dizziness, # 90 tablet, 1 Refills, Maintenance, 11/08/20 10:17:00 EDT, Tablet, [facility] #[id number], 160, cm, 11/08/20 9:35:00 EDT, Height, 42.2, kg, 02/09/20 11:49:00 EST, Dry Weight Start Date: 11/08/20 Status: Ordered MiraLax oral powder for reconstitution = 17 Gm, By Mouth, Daily, Titrate as needed, # 527 Gm, 1 Refills, Maintenance, 04/22/21 10:51:00 EST, [facility]/pharmacy #1130, Partial fill upon patient request if the prescription is for a schedule II opioid drug., 17 Gm By Mouth Daily,Instr:Titrate as ne... Start Date: 04/22/21 Status: Ordered mirtazapine 7.5 mg oral tablet 1 tablet, By Mouth, Daily at bedtime, # 30 tablet, 3 Refills, [facility] [id number], 160, cm, 07/29/21 11:45:00 EDT, Height, 42.2, kg, 02/09/20 11:49:00 EST, Dry Weight Start Date: 08/06/21 Status: Ordered Nutritional Supplements See Instructions, # [...] Refills, Soft Stop, 11/18/21 15:46:00 EDT, Tablet, [facility]/pharmacy #1130, 160, cm, 08/22/21 14:32:00 EDT, Height, 42.2, kg, 02/08... Start Date: 11/18/21 Status: Ordered Truvada 200 mg-300 mg oral tablet 1 tablet, By Mouth, Daily, re-start PreP, # 30 tablet, 6 Refills, Maintenance, 05/14/21 8:00:00 EST, Tablet, [facility]/pharmacy #1130, 1 tablet By Mouth Daily,Instr:re-start PreP, 160, cm, 04/22/21 10:31:00 EST, Height, 42.2, kg, 02/09/20 11:49:00 EST, Dry... Start Date: 05/14/21 Status: Ordered Tylenol Extra Strength 500 mg oral tablet 2 tablet = 1,000 mg, By Mouth, Every 6 hours, # 24 tablet, 0 Refills, Maintenance, 07/29/21 11:16:00 EDT, [facility] #[id number], Partial fill upon patient request if the [...] Team Personnel Name: Jillian Bautista DO Position: [facility] Resident Member Role: PCP Address: Address: [address] [place] [address] [place] [address]- Care Team Related Persons Name: DANA MARTIN Address: [address] [place] [address] Name: TERENCE MARTIN Name: CHAVA VASQUEZ Address: home [address] [place] [address] Name: PT, STATES NONE
--- OUTSIDE RECORDS SUMMARY | 2022-10-23 01:17 | XMS_ITS | Continuity of Care Document ---
Author Name Unknown Organization [facility] Address [address] [place] [id number]- Care Team Providers Care Solar Photovoltaic Electrician Name Role Phone Ezio Cedeño MD Primary Care Physician [place] [facility] [place]s): 12/26/19 - 01/25/20 [facility] [address] [place] [address] [facility] Attending Physician: AdmJanet wynn Admitting Physician: AdmtrJanet Referring Physician: Admtr, ArHarris Allergies, Adverse Reactions, Alerts Substance Reaction Severity Status penicillin Active penicillins Active Immunizations Given and Recorded Vaccine Date Status Refusal Reason influenza virus vaccine, inactivated 01/23/20 Give n influenza virus vaccine, inactivated 12/06/18 Give n influenza virus vaccine, inactivated 01/04/18 Give n influenza virus vaccine, inactivated 05/17/15 Give n influenza virus vaccine, inactivated 1 12/07/12 Gi douglas hepatitis B adult vaccine 02/28/19 Given hepatitis B adult vaccine 01/28/19 Given tetanus/diphtheria/pertussis, acel(Tdap) 2 10/24/10 Given 1Admin Note: vis given dated 10/15/12 2Admin Note: VIS GIVEN lao 02/08/08 Medications dicyclomine 10 mg oral capsule 1 capsule = 10 mg, By Mouth, 4 times a day, # 56 capsule, 0 Refills, Maintenance, 12/26/19 14:03:00EDT, Capsule, [facility] #[id number], 160, cm, 12/26/19 12:54:00 EDT, Height, 47.8, [...] 0 Refills, Maintenance, 12/08/19 14:48:00 EDT, Tablet, [facility] #[id number], 160, cm, 09/26/19 13:56:00 EDT, Height, 47.8, kg, 04/04/19 11:54:00 EST, Dry Weight Start Date: 12/08/19 Status: Ordered hydroquinone 2% topical cream 1 application, Topically, 2 times a day, [place]inean, apply to dark lesions on face, use sunscreen withuse, # 28 Gm, 1 Refills, Maintenance, 10/06/18 13:14:56 EDT, Cream, 1 application Topically 2 timesa day,Instr:[place]an, apply to dark lesions on face,... Start Date: 10/06/18 Status: Ordered Lactaid 3000 units oral tablet 3 tablet = 9,000 units, By Mouth, 3 times a day with meals, # 120 tablet, 0 Refills, Maintenance, 12/08/19 14:49:00 EDT, Tablet, [facility] #[id number], 160, cm, 09/26/19 13:56:00 EDT, Height, 47.8, [...] mL, 0 Refills, Maintenance,12/08/19 14:51:00 EDT, Suspension, [facility] #[id number], 160, cm, 09/26/19 13:56:00 EDT, Height, 47.8, [...] mL, 0 Refills, Maintenance, 12/26/19 14:02:00 EDT, [facility] #[id number],Drink 240mL every 10-15 minutes until first half [...] 0 Refills, Maintenance, 04/18/19 9:52:00 EST, Tablet, [facility] #10874, 160, cm, 04/18/19 9:08:00 EST, Height, 47.8, kg, 04/04/19 11:54:00 EST, Dry Weight Start Date: 04/18/19 Status: Ordered SUMAtriptan 50 mg oral tablet 1 tablet = 50 mg, By Mouth, Daily, # 18 tablet, 1 Refills, Soft Stop, 04/18/19 9:51:00 EST, Tablet,[facility] #[id number], 160, cm, 04/18/19 9:08:00 EST, Height, 47.8, kg, 04/04/19 11:54:00 EST, Dry Weight Start Date: 04/18/19 Status: Ordered Truvada 200 mg-300 mg oral tablet 1 tablet, By Mouth, Daily, # 30 tablet, 0 Refills, Maintenance, 04/19/19 13:05:00 EST, Tablet, [facility] #09461, 1 tablet By Mouth Daily, 160, cm, 04/18/19 9:08:00 EST, Height, 47.8, kg, 04/04/19 11:54:00 EST, Dry Weight Start Date: 04/19/19 Status: Ordered Vitamin D3 1000 intl units oral capsule 1 capsule = 1,000 International_Units, By Mouth, Daily, # 100 capsule, 0 Refills, Maintenance, 04/18/19 9:51:00 EST, Capsule, [facility] #[id number], 160, cm, 04/18/19 9:08:00 EST, Height, 47.8,kg, [...]
--- OUTSIDE RECORDS SUMMARY | 2022-10-23 01:17 | XMS_ITS | Continuity of Care Document ---
Author Name Unknown Organization [facility] Address Unknown Care Team Providers Care Silk Winding Machine Operator Name Role Phone Davidson BATRES, Ezio Laguerre Primary Care Physician Encounter [facility] Date(s): 03/04/21 - 04/07/21 [facility] Attending Physician: Debbie Shrestha NP Admitting [...] 12/07/12 Gi douglas 1Admin Note: VIS GIVEN slovak 02/08/08 2Admin Note: vis given dated 10/15/12 Medications dicyclomine 10 mg oral capsule See Instructions, TAKE ONE CAPSULE BY MOUTH FOUR TIMES DAILY, # 120 capsule, 1 Refills, Soft Stop, 11/08/20 10:17:00 EDT, [facility] #[id number], 160, cm, 11/08/20 9:35:00 EDT, Height, 42.2, [...] 1 Refills, Maintenance, 11/08/20 10:16:00 EDT, Cream, [facility] #[id number], 1 application Topically 2 times a day,Instr:Turkish, a... Start Date: 11/08/20 Status: Ordered meclizine 25 mg oral tablet 1 tablet = 25 mg, By Mouth, 3 times a day, PRN for dizziness, # 90 tablet, 1 Refills, Maintenance, 11/08/20 10:17:00 EDT, Tablet, [facility] #[id number], 160, cm, 11/08/20 9:35:00 EDT, Height, 42.2, kg, 02/09/20 11:49:00 EST, Dry Weight Start Date: 11/08/20 Status: Ordered mirtazapine 15 mg oral tablet 1 tablet = 15 mg, By Mouth, Daily at bedtime, Turkish, # 30 tablet, 2 Refills, Maintenance, 02/27/21 [...] 0 Refills, Maintenance, 11/08/20 10:17:00 EDT, Tablet, [facility] #47876, 160, cm, 11/08/20 9:35:00 EDT, Height, 42.2, kg, 02/09/20 11:49:00 EST, Dry Weight Start Date: 11/08/20 Status: Ordered SUMAtriptan 50 mg oral tablet 1 tablet = 50 mg, By Mouth, Daily, # 18 tablet, 1 Refills, Soft Stop, 11/08/20 10:17:00 EDT, Tablet, [facility] #[id number], 160, cm, 11/08/20 9:35:00 EDT, Height, 42.2, [...]
--- OUTSIDE RECORDS SUMMARY | 2022-10-23 01:17 | XMS_ITS | Continuity of Care Document ---
Author Name Unknown Organization [facility] Address [address] [place] [address]- Care Team Providers Care Catalyst Concentration Operator Name Role Phone Twindieudonne JACKSON Jillian Primary Care Physician Encounter [facility] Date(s): 12/11/21 - 01/24/22 [facility] [address] [place] [address], [place] [address] Attending Physician: Not on [...] 12/07/12 Gi douglas 1Admin Note: VIS GIVEN armenian 02/08/08 2Admin Note: vis given dated 10/15/12 Medications Combipatch 0.05 mg-0.14 mg/24 hours transdermal film, extended release 1 patch, Topically, Every Thursday and , # 8 patch, 6 Refills, Maintenance, 01/08/22 20:12:00EDT, [facility], Partial fill upon patient request if the prescription is for a schedule IIopioid drug., 1 patch Topically Every Thursday and . Start Date: 01/08/22 Status: Ordered dicyclomine 10 mg oral capsule 1 capsule, By Mouth, 4 times a day, PRN NEEDED FOR MODERATE PAIN, # 120 capsule, 1 Refills, [facility] 57[facility], 160, cm, 04/22/21 10:31:00 EST, Height, 42.2, kg, 02/09/20 11:49:00 EST, Dry Weight Start Date: 05/21/21 Status: Ordered hydroquinone 2% topical cream 1 application, Topically, 2 times a day, Cypriot, apply to dark lesions on face, use sunscreen withuse, # 28 Gm, 1 Refills, Maintenance, 11/08/20 10:16:00 EDT, Cream, [facility] #23710, 1 application Topically 2 times a day,Instr:Cypriot, a... Start Date: 11/08/20 Status: Ordered meclizine 25 mg oral tablet 1 tablet = 25 mg, By Mouth, 3 times a day, PRN for dizziness, # 90 tablet, 1 Refills, Maintenance, 11/08/20 10:17:00 EDT, Tablet, [facility] #33968, 160, cm, 11/08/20 9:35:00 EDT, Height, 42.2, kg, 02/09/20 11:49:00 EST, Dry Weight Start Date: 11/08/20 Status: Ordered MiraLax oral powder for reconstitution = 17 Gm, By Mouth, Daily, Titrate as needed, # 527 Gm, 1 Refills, Maintenance, 04/22/21 10:51:00 EST, [facility]/pharmacy #1130, Partial fill upon patient request if the prescription is for a schedule II opioid drug., 17 Gm By Mouth Daily,Instr:Titrate as ne... Start Date: 04/22/21 Status: Ordered mirtazapine 7.5 mg oral tablet 1 tablet, By Mouth, Daily at bedtime, # 30 tablet, 3 Refills, [facility] 35041, 160, cm, 07/29/21 11:45:00 EDT, Height, 42.2, [...] Soft Stop, 11/18/21 15:46:00 EDT, Tablet, [facility]/pharmacy #1130, 160, cm, 08/22/21 14:32:00 EDT, Height, 42.2, kg, 02/08... Start Date: 11/18/21 Status: Ordered Truvada 200 mg-300 mg oral tablet 1 tablet, By Mouth, Daily, re-start PreP, # 30 tablet, 6 Refills, Maintenance, 05/14/21 8:00:00 EST, Tablet, [facility]/pharmacy #1130, 1 tablet By Mouth Daily,Instr:re-start PreP, 160, cm, 04/22/21 10:31:00 EST, Height, 42.2, kg, 02/09/20 11:49:00 EST, Dry... Start Date: 05/14/21 Status: Ordered Tylenol Extra Strength 500 mg oral tablet 2 tablet = 1,000 mg, By Mouth, Every 6 hours, # 24 tablet, 0 Refills, Maintenance, 07/29/21 11:16:00 EDT, [facility] #[id number], Partial fill upon patient request if the prescription is for a schedule II opioid drug., 160, cm, 06/13/21 8:25:00 E... Start Date: 07/29/21 Status: Ordered Vitamin D3 1000 intl units oral tablet 1 tablet = 25 mcg, By Mouth, Daily, # 90 tablet, 1 Refills, Maintenance, 02/28/21 11:18:00 EST, [facility]/pharmacy #1130, Partial fill upon patient request if [...] Personnel Name: Jillian Bautista DO Address: Address: [address] [place] [address] [place], [place] [address]
--- OUTSIDE RECORDS SUMMARY | 2022-10-23 01:18 | XMS_ITS | Continuity of Care Document ---
Author Name Unknown Organization [facility] Address [address] [place] [address]- Care Team Providers Care Scalp Treatment Operator Name Role Phone Davidson BATRES, Ezio Simms Primary Care Physician Encounter [facility] Date(s): 02/22/19 - 03/25/[address] [address] Attending Physician: Marsha Solitario NP Admitting Physician: Marsha Solitario NP Referring Physician: Marsha Solitario NP Allergies, Adverse Reactions, Alerts Substance Reaction [...] given dated 10/15/12 2Admin Note: VIS GIVEN khmer 02/08/08 Medications dicyclomine 10 mg oral capsule 1 capsule = 10 mg, By Mouth, 4 times a day, PRN Pain , Moderate, for 30 days, # 60 capsule, 1 Refills, Hard Stop 04/09/20 17:32:00 EST, 02/09/20 17:32:00 EST, Capsule, [facility] #[id number], 160, cm, 02/09/20 11:43:00 EST, Height, 42.2, kg, 01/21... Start Date: 02/09/20 Stop Date: 04/09/20 Status: Ordered dicyclomine 10 mg oral capsule 1 capsule = 10 mg, By Mouth, 4 times a day, PRN Pain , Moderate, # 60 capsule, 1 Refills, Maintenance, 02/24/20 12:26:00 EST, Capsule, [facility]/pharmacy #1130, 160, cm, 02/09/20 11:43:00 [...] 0 Refills, Maintenance, 03/05/20 16:16:00 EST, Tablet, [facility]/pharmacy #1130, 160, cm, 02/09/20 11:43:00 EST, Height, 42.2, kg, 02/09/20 11:49:00 EST, Dry Weight Start Date: 03/05/20 Status: Ordered hydroquinone 2% topical cream 1 application, Topically, 2 times a day, Serbian, apply to dark lesions on face, use sunscreen withuse, # 28 Gm, 1 Refills, Maintenance, 10/06/18 13:14:56 EDT, Cream, 1 application Topically 2 timesa day,Instr:Serbian, apply to dark lesions on face,... Start Date: 10/06/18 Status: Ordered Lactaid 3000 units oral tablet 3 tablet = 9,000 units, By Mouth, 3 times a day with meals, # 120 tablet, 0 Refills, Maintenance, 12/08/19 14:49:00 EDT, Tablet, [facility] #48471, 160, cm, 09/26/19 13:56:00 EDT, Height, 47.8, [...] mL, 0 Refills, Maintenance,12/08/19 14:51:00 EDT, Suspension, [facility] #49764, 160, cm, 09/26/19 13:56:00 EDT, Height, 47.8, [...] mL, 0 Refills, Maintenance, 12/26/19 14:02:00 EDT, [facility] #41758,Drink 240mL every 10-15 minutes until first half [...] 0 Refills, Maintenance, 04/18/19 9:52:00 EST, Tablet, [facility] #32177, 160, cm, 04/18/19 9:08:00 EST, Height, 47.8, kg, 04/04/19 11:54:00 EST, Dry Weight Start Date: 04/18/19 Status: Ordered SUMAtriptan 50 mg oral tablet 1 tablet = 50 mg, By Mouth, Daily, # 18 tablet, 1 Refills, Soft Stop, 03/05/20 16:16:00 EST, Tablet, [facility]/pharmacy #1130, 160, cm, 02/09/20 11:43:00 EST, Height, 42.2, kg, 02/09/20 11:49:00 EST, Dry Weight Start Date: 03/05/20 Status: Ordered Truvada 200 mg-300 mg oral tablet 1 tablet, By Mouth, Daily, # 30 tablet, 0 Refills, Maintenance, 04/19/19 13:05:00 EST, Tablet, [facility] #67835, 1 tablet By Mouth Daily, 160, cm, 04/18/19 9:08:00 EST, Height, 47.8, kg, 04/04/19 11:54:00 EST, Dry Weight Start Date: 04/19/19 Status: Ordered Tylenol 325 mg oral tablet 650 mg, 2, tablet, By Mouth, Every 6 hours, PRN, not to exceed 4000 mg/day, Serbian label, # 120 tablet, Refills 1, Tot. Refills 1, Maintenance, Pain , Moderate, 03/05/20 16:16:00 EST, Route to Pharmacy Electronically, [facility]/pharmacy #1130, Partial fill... Start Date: 03/05/20 Status: Ordered Vitamin D3 1000 intl units oral capsule 1 capsule = 1,000 International_Units, By Mouth, Daily, # 100 capsule, 0 Refills, Maintenance, 04/18/19 9:51:00 EST, Capsule, [facility] #[id number], 160, cm, 04/18/19 9:08:00 EST, Height, 47.8,kg, [...]
--- OUTSIDE RECORDS SUMMARY | 2022-10-23 01:18 | XMS_ITS | Continuity of Care Document ---
Author Name Unknown Organization [facility] Address [address] [place] [address]- Care Team Providers Care Equipment Superintendent Name Role Phone Davidson BATRES, Ezio Laguerre Primary Care Physician [phone] Encounter [facility] Date(s): 05/29/21 - 07/11/[address] [address] Attending Physician: Not on Staff, Attending [...] 12/07/12 Gi douglas 1Admin Note: VIS GIVEN sami 02/08/08 2Admin Note: vis given dated 10/15/12 Medications dicyclomine 10 mg oral capsule 1 capsule, By Mouth, 4 times a day, PRN NEEDED FOR MODERATE PAIN, # 120 capsule, 1 Refills, [facility] 09831, 160, cm, 04/22/21 10:31:00 EST, Height, 42.2, kg, 02/09/20 11:49:00 EST, Dry Weight Start Date: 05/21/21 Status: Ordered hydroquinone 2% topical cream 1 application, Topically, 2 times a day, Uzbek, apply to dark lesions on face, use sunscreen withuse, # 28 Gm, 1 Refills, Maintenance, 11/08/20 10:16:00 EDT, Cream, [facility] #58196, 1 application Topically 2 times a day,Instr:Uzbek, a... Start Date: 11/08/20 Status: Ordered meclizine 25 mg oral tablet 1 tablet = 25 mg, By Mouth, 3 times a day, PRN for dizziness, # 90 tablet, 1 Refills, Maintenance, 11/08/20 10:17:00 EDT, Tablet, [facility] #62141, 160, cm, 11/08/20 9:35:00 EDT, Height, 42.2, kg, 02/09/20 11:49:00 EST, Dry Weight Start Date: 11/08/20 Status: Ordered MiraLax oral powder for reconstitution = 17 Gm, By Mouth, Daily, Titrate as needed, # 527 Gm, 1 Refills, Maintenance, 04/22/21 10:51:00 EST, [facility]/pharmacy #1130, Partial fill upon patient request if the prescription is for a schedule II opioid drug., 17 Gm By Mouth Daily,Instr:Titrate as ne... Start Date: 04/22/21 Status: Ordered mirtazapine 7.5 mg oral tablet 1 tablet = 7.5 mg, By Mouth, Daily at bedtime, # 30 tablet, 3 Refills, Maintenance, 04/09/21 9:45:00 EST, [facility]/pharmacy #1130, Partial fill upon patient [...] Refills, Maintenance, 04/22/21 10:50:00 EST, [facility]/pharmacy #1130, Partial fill upon patient [...] 0 Refills, Maintenance, 11/08/20 10:17:00 EDT, Tablet, [facility] #42912, 160, cm, 11/08/20 9:35:00 EDT, Height, 42.2, kg, 02/09/20 11:49:00 EST, Dry Weight Start Date: 11/08/20 Status: Ordered SUMAtriptan 50 mg oral tablet 1 tablet = 50 mg, By Mouth, Daily, # 18 tablet, 1 Refills, Soft Stop, 11/08/20 10:17:00 EDT, Tablet, [facility] #19780, 160, cm, 11/08/20 9:35:00 EDT, Height, 42.2, kg, 02/09/20 11:49:00 EST, Dry Weight Start Date: 11/08/20 Status: Ordered Truvada 200 mg-300 mg oral tablet 1 tablet, By Mouth, Daily, re-start PreP, # 30 tablet, 6 Refills, Maintenance, 05/14/21 8:00:00 EST, Tablet, [facility]/pharmacy #1130, 1 tablet By Mouth Daily,Instr:re-start PreP, 160, cm, 04/22/21 10:31:00 EST, Height, 42.2, kg, 02/09/20 11:49:00 EST, Dry... Start Date: 05/14/21 Status: Ordered Vitamin D3 1000 intl units oral tablet 1 tablet = 25 mcg, By Mouth, Daily, # 90 tablet, 1 Refills, Maintenance, 02/28/21 11:18:00 EST, [facility]/pharmacy #1130, Partial fill upon patient [...]
--- OUTSIDE RECORDS SUMMARY | 2022-10-23 01:18 | XMS_ITS | Continuity of Care Document ---
Author Name Unknown Organization [facility] Address [address] [place] [address]- Care Team Providers Care Surface Supply Breathing Apparatus Name Role Phone Davidson BATRES, Ezio Laguerre Primary Care Physician Encounter [facility] Date(s): 05/17/20 - 06/16/20 [facility] [address] [place] [id number] Allergies, Adverse Reactions, Alerts Substance Reaction [...] PAIN, # 60 capsule, 1 Refills, Maintenance, [facility] 528[facility], 160, cm, 02/09/20 11:43:00 EST, Height, 42.2, [...] 0 Refills, Maintenance, 03/05/20 16:16:00 EST, Tablet, [facility]/pharmacy #1130, 160, cm, 02/09/20 11:43:00 EST, Height, 42.2, kg, 02/09/20 11:49:00 EST, Dry Weight Start Date: 03/05/20 Status: Ordered hydroquinone 2% topical cream 1 application, Topically, 2 times a day, Fijian, apply to dark lesions on face, use sunscreen withuse, # 28 Gm, 1 Refills, Maintenance, 10/06/18 13:14:56 EDT, Cream, 1 application Topically 2 timesa day,Instr:Fijian, apply to dark lesions on face,... Start Date: 10/06/18 Status: Ordered Lactaid 3000 units oral tablet 3 tablet = 9,000 units, By Mouth, 3 times a day with meals, # 120 tablet, 0 Refills, Maintenance, 12/08/19 14:49:00 EDT, Tablet, [facility] #[id number], 160, cm, 09/26/19 13:56:00 EDT, Height, 47.8, kg, 04/04/19 11:54:00 EST, Dry Weight Start Date: 12/08/19 Status: Ordered meclizine 25 mg oral tablet 1 tablet = 25 mg, By Mouth, 3 times a day, PRN for dizziness, # 90 tablet, 1 Refills, Maintenance, 04/08/18 16:05:52 EST, Tablet Start Date: 04/08/18 Status: Ordered meloxicam 7.5 mg oral tablet 1 tablet = 7.5 mg, By Mouth, Daily, # 14 tablet, 0 Refills, Maintenance, 06/06/20 16:50:00 EDT, Tablet, [facility]/pharmacy #1130, Partial fill upon patient request if the prescription is for a schedule II opioid drug., 160, cm, 06/04/20 18:15:00 EDT, Height... Start Date: 06/06/20 Stop Date: 06/20/20 Status: Ordered Milk of Magnesia 8% oral suspension 30 mL = 2.4 Gm, By Mouth, Daily at bedtime, PRN for constipation, # 300 mL, 0 Refills, Maintenance,12/08/19 14:51:00 EDT, Suspension, [facility] #[id number], 160, cm, 09/26/19 13:56:00 EDT, Height, 47.8, kg, 04/04/19 11:54:00 EST, Dry Weight Start Date: 12/08/19 Status: Ordered NuLYTELY with Flavor Packs oral powder for reconstitution See Instructions, Drink 240mL every 10-15 minutes until first half is gone. Repeat 6 hours prior toprocedure., # 4,000 mL, 0 Refills, Maintenance, 12/26/19 14:02:00 EDT, [facility] #46903,Drink 240mL every 10-15 minutes until first half [...] 0 Refills, Maintenance, 04/18/19 9:52:00 EST, Tablet, [facility] #[id number], 160, cm, 04/18/19 9:08:00 EST, Height, 47.8, kg, 04/04/19 11:54:00 EST, Dry Weight Start Date: 04/18/19 Status: Ordered SUMAtriptan 50 mg oral tablet 1 tablet = 50 mg, By Mouth, Daily, # 18 tablet, 1 Refills, Soft Stop, 03/05/20 16:16:00 EST, Tablet, [facility]/pharmacy #1130, 160, cm, 02/09/20 11:43:00 EST, Height, 42.2, kg, 02/09/20 11:49:00 EST, Dry Weight Start Date: 03/05/20 Status: Ordered Truvada 200 mg-300 mg oral tablet 1 tablet, By Mouth, Daily, re-start PreP, # 30 tablet, 3 Refills, Maintenance, 05/29/20 14:58:00 EST, Tablet, [facility]/pharmacy #1130, 1 tablet By Mouth Daily,Instr:re-start PreP, 160, cm, 02/09/20 11:43:00 EST, Height, 42.2, kg, 02/09/20 11:49:00 EST, Dry... Start Date: 05/29/20 Status: Ordered Truvada 200 mg-300 mg oral tablet 1 tablet, By Mouth, Daily, # 30 tablet, 0 Refills, Maintenance, 04/19/19 13:05:00 EST, Tablet, [facility] #[id number], 1 tablet By Mouth Daily, 160, cm, 04/18/19 9:08:00 EST, Height, 47.8, kg, 04/04/19 11:54:00 EST, Dry Weight Start Date: 04/19/19 Status: Ordered Tylenol 325 mg oral tablet 650 mg, 2, tablet, By Mouth, Every 6 hours, PRN, not to exceed 4000 mg/day, Fijian label, # 120 tablet, Refills 1, Tot. Refills 1, Maintenance, Pain , Moderate, 03/05/20 16:16:00 EST, Route to Pharmacy Electronically, [facility]/pharmacy #1130, Partial fill... Start Date: 03/05/20 Status: Ordered Vitamin D3 1000 intl units oral capsule 1 capsule = 1,000 International_Units, By Mouth, Daily, # 100 capsule, 0 Refills, Maintenance, 04/18/19 9:51:00 EST, Capsule, [facility] #69858, 160, cm, 04/18/19 9:08:00 EST, Height, 47.8,kg, [...]
--- OUTSIDE RECORDS SUMMARY | 2022-10-23 01:18 | XMS_ITS | Continuity of Care Document ---
Author Name Unknown Organization [facility] Address [address] [place] [address]- Care Team Providers Care Route Salesman Name Role Phone Davidson BATRES, Ezio Laguerre Primary Care Physician [phone] Encounter [facility] [id number] Date(s): 03/27/20 - 05/27/[address] [address] Discharge Disposition: A-D/C Home Attending Physician: Norberto BATRES, Simone Smith Admitting Physician: Not on Staff, Admitting MD Referring Physician: Ezio Cedeño MD Allergies, [...] given dated 10/15/12 2Admin Note: VIS GIVEN maori 02/08/08 Medications dicyclomine 10 mg oral capsule [...] PAIN, # 60 capsule, 1 Refills, Maintenance, [facility] 18032, 160, cm, 02/09/20 11:43:00 EST, Height, 42.2, [...] 0 Refills, Maintenance, 03/05/20 16:16:00 EST, Tablet, [facility]/pharmacy #1130, 160, cm, 02/09/20 11:43:00 EST, Height, 42.2, kg, 02/09/20 11:49:00 EST, Dry Weight Start Date: 03/05/20 Status: Ordered hydroquinone 2% topical cream 1 application, Topically, 2 times a day, Sinhala, apply to dark lesions on face, use sunscreen withuse, # 28 Gm, 1 Refills, Maintenance, 10/06/18 13:14:56 EDT, Cream, 1 application Topically 2 timesa day,Instr:Sinhala, apply to dark lesions on face,... Start Date: 10/06/18 Status: Ordered Lactaid 3000 units oral tablet 3 tablet = 9,000 units, By Mouth, 3 times a day with meals, # 120 tablet, 0 Refills, Maintenance, 12/08/19 14:49:00 EDT, Tablet, [facility] #[id number], 160, cm, 09/26/19 13:56:00 EDT, Height, 47.8, [...] mL, 0 Refills, Maintenance,12/08/19 14:51:00 EDT, Suspension, [facility] #62645, 160, cm, 09/26/19 13:56:00 EDT, Height, 47.8, [...] mL, 0 Refills, Maintenance, 12/26/19 14:02:00 EDT, [facility] #[id number],Drink 240mL every 10-15 minutes until first half [...] 0 Refills, Maintenance, 04/18/19 9:52:00 EST, Tablet, [facility] #[id number], 160, cm, 04/18/19 9:08:00 EST, Height, 47.8, kg, 04/04/19 11:54:00 EST, Dry Weight Start Date: 04/18/19 Status: Ordered SUMAtriptan 50 mg oral tablet 1 tablet = 50 mg, By Mouth, Daily, # 18 tablet, 1 Refills, Soft Stop, 03/05/20 16:16:00 EST, Tablet, [facility]/pharmacy #1130, 160, cm, 02/09/20 11:43:00 EST, Height, 42.2, kg, 02/09/20 11:49:00 EST, Dry Weight Start Date: 03/05/20 Status: Ordered Truvada 200 mg-300 mg oral tablet 1 tablet, By Mouth, Daily, # 30 tablet, 0 Refills, Maintenance, 04/19/19 13:05:00 EST, Tablet, [facility] #86648, 1 tablet By Mouth Daily, 160, cm, 04/18/19 9:08:00 EST, Height, 47.8, kg, 04/04/19 11:54:00 EST, Dry Weight Start Date: 04/19/19 Status: Ordered Tylenol 325 mg oral tablet 650 mg, 2, tablet, By Mouth, Every 6 hours, PRN, not to exceed 4000 mg/day, Sinhala label, # 120 tablet, Refills 1, Tot. Refills 1, Maintenance, Pain , Moderate, 03/05/20 16:16:00 EST, Route to Pharmacy Electronically, [facility]/pharmacy #1130, Partial fill... Start Date: 03/05/20 Status: Ordered Vitamin D3 1000 intl units oral capsule 1 capsule = 1,000 International_Units, By Mouth, Daily, # 100 capsule, 0 Refills, Maintenance, 04/18/19 9:51:00 EST, Capsule, [facility] #76203, 160, cm, 04/18/19 9:08:00 EST, Height, 47.8,kg, [...]
--- OUTSIDE RECORDS SUMMARY | 2022-10-23 01:18 | XMS_ITS | Continuity of Care Document ---
Author Name Unknown Organization [facility] Address [address] [place] [address]- Care Team Providers Care Sports Physiologist Name Role Phone Davidson BATRES, Ezio Laguerre Primary Care Physician [phone] Encounter [facility] Date(s): 06/03/21 - 08/04/[address] [address] Attending Physician: Not on Staff, Attending [...] 12/07/12 Gi douglas 1Admin Note: VIS GIVEN luxembourgish 02/08/08 2Admin Note: vis given dated 10/15/12 Medications dicyclomine 10 mg oral capsule 1 capsule, By Mouth, 4 times a day, PRN NEEDED FOR MODERATE PAIN, # 120 capsule, 1 Refills, [id number], 160, cm, 04/22/21 10:31:00 EST, Height, 42.2, kg, 02/09/20 11:49:00 EST, Dry Weight Start Date: 05/21/21 Status: Ordered hydroquinone 2% topical cream 1 application, Topically, 2 times a day, Qatari, apply to dark lesions on face, use sunscreen withuse, # 28 Gm, 1 Refills, Maintenance, 11/08/20 10:16:00 EDT, Cream, [facility] #[id number], 1 application Topically 2 times a day,Instr:Qatari, a... Start Date: 11/08/20 Status: Ordered meclizine 25 mg oral tablet 1 tablet = 25 mg, By Mouth, 3 times a day, PRN for dizziness, # 90 tablet, 1 Refills, Maintenance, 11/08/20 10:17:00 EDT, Tablet, [facility] #[id number], 160, cm, 11/08/20 9:35:00 EDT, Height, 42.2, kg, 02/09/20 11:49:00 EST, Dry Weight Start Date: 11/08/20 Status: Ordered MiraLax oral powder for reconstitution = 17 Gm, By Mouth, Daily, Titrate as needed, # 527 Gm, 1 Refills, Maintenance, 04/22/21 10:51:00 EST, [facility]/pharmacy #[id number], Partial fill upon patient request if the prescription is for a schedule II opioid drug., 17 Gm By Mouth Daily,Instr:Titrate as ne... Start Date: 04/22/21 Status: Ordered mirtazapine 7.5 mg oral tablet 1 tablet = 7.5 mg, By Mouth, Daily at bedtime, # 30 tablet, 3 Refills, Maintenance, 04/09/21 9:45:00 EST, [facility]/pharmacy #[id number], Partial fill upon patient [...] mL, 0 Refills, Maintenance, 04/22/21 10:50:00 EST, [facility]/pharmacy #[id number], Partial fill upon patient [...] 0 Refills, Maintenance, 11/08/20 10:17:00 EDT, Tablet, [facility] #[id number], 160, cm, 11/08/20 9:35:00 EDT, Height, 42.2, kg, 02/09/20 11:49:00 EST, Dry Weight Start Date: 11/08/20 Status: Ordered SUMAtriptan 50 mg oral tablet 1 tablet = 50 mg, By Mouth, Daily, # 18 tablet, 1 Refills, Soft Stop, 11/08/20 10:17:00 EDT, Tablet, [facility] #[id number], 160, cm, 11/08/20 9:35:00 EDT, Height, 42.2, kg, 02/09/20 11:49:00 EST, Dry Weight Start Date: 11/08/20 Status: Ordered Truvada 200 mg-300 mg oral tablet 1 tablet, By Mouth, Daily, re-start PreP, # 30 tablet, 6 Refills, Maintenance, 05/14/21 8:00:00 EST, Tablet, [facility]/pharmacy #1130, 1 tablet By Mouth Daily,Instr:re-start PreP, 160, cm, 04/22/21 10:31:00 EST, Height, 42.2, kg, 02/09/20 11:49:00 EST, Dry... Start Date: 05/14/21 Status: Ordered Tylenol Extra Strength 500 mg oral tablet 2 tablet = 1,000 mg, By Mouth, Every 6 hours, # 24 tablet, 0 Refills, Maintenance, 07/29/21 11:16:00 EDT, [facility] #[id number], Partial fill upon patient request if the prescription is for a schedule II opioid drug., 160, cm, 06/13/21 8:25:00 E... Start Date: 07/29/21 Status: Ordered Vitamin D3 1000 intl units oral tablet 1 tablet = 25 mcg, By Mouth, Daily, # 90 tablet, 1 Refills, Maintenance, 02/28/21 11:18:00 EST, [facility]/pharmacy #[id number], Partial fill upon patient [...]
--- OUTSIDE RECORDS SUMMARY | 2022-10-23 01:18 | XMS_ITS | Continuity of Care Document ---
Author Name Unknown Organization [facility] Address [address] [place] [address]- Care Team Providers Care Supervisor Hanging And Trimming Name Role Phone Twindieudonne JACKSON Jillian Primary Care Physician Encounter [facility] Date(s): 01/13/22 - 03/14/22 [facility] [address] [place], [place] [address] Attending Physician: Topher Austin MD Admitting Physician: [...] 12/07/12 Gi douglas 1Admin Note: VIS GIVEN tajik 02/08/08 2Admin Note: vis given dated 10/15/12 Medications Combipatch 0.05 mg-0.14 mg/24 hours transdermal film, extended release 1 patch, Topically, Every Thursday and , # 8 patch, 6 Refills, Maintenance, 01/08/22 20:12:00EDT, [facility]/pharmacy #[id number], Partial fill upon patient request if the prescription is for a schedule IIopioid drug., 1 patch Topically Every Thursday and .. Start Date: 01/08/22 Status: Ordered dicyclomine 10 mg oral capsule 1 capsule, By Mouth, 4 times a day, PRN NEEDED FOR MODERATE PAIN, # 120 capsule, 1 Refills, 03/05/22 12:35:00 EST, [facility]/pharmacy #[id number], 160, cm, 01/08/22 9:48:00 EDT, Height Start Date: 03/05/22 Status: Ordered escitalopram 10 mg oral tablet 1 tablet = 10 mg, By Mouth, Daily, Take half tablet daily for 2 weeks, then 1 tablet daily thereafter Citizen Of [place] label please, # 90 tablet, 0 Refills, Maintenance, 02/12/22 11:01:00 EST, Tablet, [facility]/pharmacy #[id number], Partial fill upon patient request i... Start Date: 02/12/22 Stop Date: 05/13/22 Status: Ordered MiraLax oral powder for reconstitution = 17 Gm, By Mouth, Daily, Titrate as needed, # 527 Gm, 1 Refills, Maintenance, 04/22/21 10:51:00 EST, [facility]/pharmacy #[id number], Partial fill upon patient [...] # 18 tablet, 0 Refills, Soft Stop, 03/05/22 12:35:00 EST, Tablet, [facility]/pharmacy #1130, 160, cm, 01/08/22 9:48:00 EDT, Height Start Date: 03/05/22 Status: Ordered Truvada 200 mg-300 mg oral [...] S Resident Member Role: PCP Address: Address: [address] [place] [address]- Care Team Related Persons Name: DANA MARTIN Address: home [address] [place] [address] Name: TERENCE MARTIN Name: CHAVA VASQUEZ Address: home [address] [place] [address] Name: PT, STATES NONE
--- OUTSIDE RECORDS SUMMARY | 2022-10-23 01:18 | XMS_ITS | Continuity of Care Document ---
Author Name Unknown Organization [facility] Address [address] [place] [address]- Care Team Providers Care Soda Fountain Manager Name Role Phone Ezio Cedeño MD Primary Care Physician Encounter [facility] Date(s): 05/08/21 - 06/28/21 [facility] [address] [place], [place] [address] Attending Physician: Not on Staff, Attending MD [...] 12/07/12 Gi douglas 1Admin Note: VIS GIVEN khmer 02/08/08 2Admin Note: vis given dated 10/15/12 Medications dicyclomine 10 mg oral capsule 1 capsule, By Mouth, 4 times a day, PRN NEEDED FOR MODERATE PAIN, # 120 capsule, 1 Refills, [facility] [id number], 160, cm, 04/22/21 10:31:00 EST, Height, 42.2, kg, 02/09/20 11:49:00 EST, Dry Weight Start Date: 05/21/21 Status: Ordered hydroquinone 2% topical cream 1 application, Topically, 2 times a day, Albanian, apply to dark lesions on face, use sunscreen withuse, # 28 Gm, 1 Refills, Maintenance, 11/08/20 10:16:00 EDT, Cream, [facility] #59537, 1 application Topically 2 times a day,Instr:Albanian, a... Start Date: 11/08/20 Status: Ordered meclizine 25 mg oral tablet 1 tablet = 25 mg, By Mouth, 3 times a day, PRN for dizziness, # 90 tablet, 1 Refills, Maintenance, 11/08/20 10:17:00 EDT, Tablet, [facility] #74820, 160, cm, 11/08/20 9:35:00 EDT, Height, 42.2, kg, 02/09/20 11:49:00 EST, Dry Weight Start Date: 11/08/20 Status: Ordered MiraLax oral powder for reconstitution = 17 Gm, By Mouth, Daily, Titrate as needed, # 527 Gm, 1 Refills, Maintenance, 04/22/21 10:51:00 EST, [facility]/pharmacy #[id number], Partial fill upon patient request if the prescription is for a schedule II opioid drug., 17 Gm By Mouth Daily,Instr:Titrate as ne... Start Date: 04/22/21 Status: Ordered mirtazapine 7.5 mg oral tablet 1 tablet = 7.5 mg, By Mouth, Daily at bedtime, # 30 tablet, 3 Refills, Maintenance, 04/09/21 9:45:00 EST, [facility]/pharmacy #1130, Partial fill upon [...] mL, 0 Refills, Maintenance, 04/22/21 10:50:00 EST, [facility]/pharmacy #1130, Partial fill upon [...] 0 Refills, Maintenance, 11/08/20 10:17:00 EDT, Tablet, [facility] #84941, 160, cm, 11/08/20 9:35:00 EDT, Height, 42.2, kg, 02/09/20 11:49:00 EST, Dry Weight Start Date: 11/08/20 Status: Ordered SUMAtriptan 50 mg oral tablet 1 tablet = 50 mg, By Mouth, Daily, # 18 tablet, 1 Refills, Soft Stop, 11/08/20 10:17:00 EDT, Tablet, [facility] #[id number], 160, cm, 11/08/20 9:35:00 EDT, Height, 42.2, kg, 02/09/20 11:49:00 EST, Dry Weight Start Date: 11/08/20 Status: Ordered Truvada 200 mg-300 mg oral tablet 1 tablet, By Mouth, Daily, re-start PreP, # 30 tablet, 6 Refills, Maintenance, 05/14/21 8:00:00 EST, Tablet, [facility]/pharmacy #1130, 1 tablet By [...]
--- OUTSIDE RECORDS SUMMARY | 2022-10-23 01:18 | XMS_ITS | Continuity of Care Document ---
Author Name Unknown Organization [facility] Address [address] [place] [address]- Care Team Providers Care Playground Worker Name Role Phone Naun BATRES, Romel Ma Primary Care Physician Encounter [facility] Date(s): 11/16/19 - 12/16/19 [facility] [address] [address] Attending Physician: Janet Lundberg Admitting Physician: Janet Lundberg Referring Physician: AdmJanet wynn Allergies, Adverse Reactions, Alerts Substance Reaction Severity [...] given dated 10/15/12 2Admin Note: VIS GIVEN arabic 02/08/08 Medications dicyclomine 10 mg oral capsule [...] 0 Refills, Maintenance, 12/08/19 14:48:00 EDT, Tablet, [facility] #[id number], 160, cm, 09/26/19 13:56:00 EDT, Height, 47.8, kg, 04/04/19 11:54:00 EST, Dry Weight Start Date: 12/08/19 Status: Ordered hydroquinone 2% topical cream 1 application, Topically, 2 times a day, Sudanese, apply to dark lesions on face, use sunscreen withuse, # 28 Gm, 1 Refills, Maintenance, 10/06/18 13:14:56 EDT, Cream, 1 application Topically 2 timesa day,Instr:Sudanese, apply to dark lesions on face,... Start Date: 10/06/18 Status: Ordered Lactaid 3000 units oral tablet 3 tablet = 9,000 units, By Mouth, 3 times a day with meals, # 120 tablet, 0 Refills, Maintenance, 12/08/19 14:49:00 EDT, Tablet, [facility] #85907, 160, cm, 09/26/19 13:56:00 EDT, Height, 47.8, [...] mL, 0 Refills, Maintenance,12/08/19 14:51:00 EDT, Suspension, [facility] #[id number], 160, cm, 09/26/19 13:56:00 EDT, Height, 47.8, kg, 04/04/19 11:54:00 EST, Dry Weight Start Date: 12/08/19 Status: Ordered Nabumetone Tablet TK 1 T PO QID Start Date: 05/17/18 Status: Ordered simethicone 80 mg oral tablet 1 tablet = 80 mg, Chew, 3 times a day after meals, PRN as needed for gas, # 60 tablet, 0 Refills, Maintenance, 04/18/19 9:52:00 EST, Tablet, [facility] #84188, 160, cm, 04/18/19 9:08:00 EST, Height, 47.8, kg, 04/04/19 11:54:00 EST, Dry Weight Start Date: 04/18/19 Status: Ordered SUMAtriptan 50 mg oral tablet 1 tablet = 50 mg, By Mouth, Daily, # 18 tablet, 1 Refills, Soft Stop, 04/18/19 9:51:00 EST, Tablet,[facility] #34789, 160, cm, 04/18/19 9:08:00 EST, Height, 47.8, kg, 04/04/19 11:54:00 EST, Dry Weight Start Date: 04/18/19 Status: Ordered Truvada 200 mg-300 mg oral tablet 1 tablet, By Mouth, Daily, # 30 tablet, 0 Refills, Maintenance, 04/19/19 13:05:00 EST, Tablet, [facility] #[id number], 1 tablet By Mouth Daily, 160, cm, 04/18/19 9:08:00 EST, Height, 47.8, kg, 04/04/19 11:54:00 EST, Dry Weight Start Date: 04/19/19 Status: Ordered Vitamin D3 1000 intl units oral capsule 1 capsule = 1,000 International_Units, By Mouth, Daily, # 100 capsule, 0 Refills, Maintenance, 04/18/19 9:51:00 EST, Capsule, [facility] #07854, 160, cm, 04/18/19 9:08:00 EST, Height, 47.8,kg, [...]
--- OUTSIDE RECORDS SUMMARY | 2022-10-23 01:18 | XMS_ITS | Continuity of Care Document ---
Author Name Unknown Organization [facility] Address [address] [place] [address]- Care Team Providers Care Pier Worker Name Role Phone Davidson BATRES, Ezio Laguerre Primary Care Physician Encounter [facility] Date(s): 03/01/21 - 03/31/21 [facility] [address] [place], [place] [address] Allergies, Adverse Reactions, Alerts Substance Reaction [...] 1 Refills, Soft Stop, 11/08/20 10:17:00 EDT, [facility] #[id number], 160, cm, 11/08/20 9:35:00 EDT, Height, 42.2, kg,11/19/20 11:49:00 EST, Dry Weight Start Date: 11/08/20 Status: Ordered dicyclomine 10 mg oral capsule 1 capsule = 10 mg, By Mouth, 4 times a day, # 120 capsule, 1 Refills, Maintenance, 02/21/21 13:02:00 EST, Capsule, [facility]/pharmacy #1130, Partial fill upon patient request if the prescription is for a schedule II opioid drug., 160, cm, 11/08/20 9:35:00 E... Start Date: 02/21/21 Stop Date: 04/22/21 Status: Ordered hydroquinone 2% topical cream 1 application, Topically, 2 times a day, Macanese, apply to dark lesions on face, use sunscreen withuse, # 28 Gm, 1 Refills, Maintenance, 11/08/20 10:16:00 EDT, Cream, [facility] #[id number], 1 application Topically 2 times a day,Instr:Macanese, a... Start Date: 11/08/20 Status: Ordered meclizine 25 mg oral tablet 1 tablet = 25 mg, By Mouth, 3 times a day, PRN for dizziness, # 90 tablet, 1 Refills, Maintenance, 11/08/20 10:17:00 EDT, Tablet, [facility] #[id number], 160, cm, 11/08/20 9:35:00 EDT, Height, 42.2, kg, 02/09/20 11:49:00 EST, Dry Weight Start Date: 11/08/20 Status: Ordered mirtazapine 15 mg oral tablet 1 tablet = 15 mg, By Mouth, Daily at bedtime, Macanese, # 30 tablet, 2 Refills, Maintenance, 02/27/21 8:35:00 EST, Tablet, [facility]/pharmacy #1130, Partial fill upon patient request [...] 0 Refills, Maintenance, 11/08/20 10:17:00 EDT, Tablet, [facility] #10918, 160, cm, 11/08/20 9:35:00 EDT, Height, 42.2, kg, 02/09/20 11:49:00 EST, Dry Weight Start Date: 11/08/20 Status: Ordered SUMAtriptan 50 mg oral tablet 1 tablet = 50 mg, By Mouth, Daily, # 18 tablet, 1 Refills, Soft Stop, 11/08/20 10:17:00 EDT, Tablet, [facility] #54681, 160, cm, 11/08/20 9:35:00 EDT, Height, 42.2, kg, 02/09/20 11:49:00 EST, Dry Weight Start Date: 11/08/20 Status: Ordered Vitamin D3 1000 intl units oral tablet 1 tablet = 25 mcg, By Mouth, Daily, # 90 tablet, 1 Refills, Maintenance, 02/28/21 11:18:00 EST, [facility]/pharmacy #1130, Partial fill upon patient request [...]
--- OUTSIDE RECORDS SUMMARY | 2022-10-23 01:18 | XMS_ITS | Continuity of Care Document ---
Author Name Unknown Organization [facility] Address [address] [place] [address]- Care Team Providers Care Ball Point Splitter Name Role Phone Davidson BATRES, Ezio Laguerre Primary Care Physician Encounter [facility] Date(s): 12/27/19 - 01/26/[address] [address] Attending Physician: Janet Lundberg Admitting Physician: AdmJanet [...] given dated 10/15/12 2Admin Note: VIS GIVEN german 02/08/08 Medications dicyclomine 10 mg oral capsule 1 capsule = 10 mg, By Mouth, 4 times a day, # 56 capsule, 0 Refills, Maintenance, 12/26/19 14:03:00EDT, Capsule, [facility] #[id number], 160, cm, 12/26/19 12:54:00 EDT, Height, 47.8, [...] 0 Refills, Maintenance, 12/08/19 14:48:00 EDT, Tablet, [facility] #[id number], 160, cm, 09/26/19 13:56:00 EDT, Height, 47.8, kg, 04/04/19 11:54:00 EST, Dry Weight Start Date: 12/08/19 Status: Ordered hydroquinone 2% topical cream 1 application, Topically, 2 times a day, Macedonian, apply to dark lesions on face, use sunscreen withuse, # 28 Gm, 1 Refills, Maintenance, 10/06/18 13:14:56 EDT, Cream, 1 application Topically 2 timesa day,Instr:Macedonian, apply to dark lesions on face,... Start Date: 10/06/18 Status: Ordered Lactaid 3000 units oral tablet 3 tablet = 9,000 units, By Mouth, 3 times a day with meals, # 120 tablet, 0 Refills, Maintenance, 12/08/19 14:49:00 EDT, Tablet, [facility] #[id number], 160, cm, 09/26/19 13:56:00 EDT, Height, 47.8, [...] mL, 0 Refills, Maintenance,12/08/19 14:51:00 EDT, Suspension, [facility] #36950, 160, cm, 09/26/19 13:56:00 EDT, Height, 47.8, [...] mL, 0 Refills, Maintenance, 12/26/19 14:02:00 EDT, [facility] #21795,Drink 240mL every 10-15 minutes until first half [...] 0 Refills, Maintenance, 04/18/19 9:52:00 EST, Tablet, [facility] #80023, 160, cm, 04/18/19 9:08:00 EST, Height, 47.8, kg, 04/04/19 11:54:00 EST, Dry Weight Start Date: 04/18/19 Status: Ordered SUMAtriptan 50 mg oral tablet 1 tablet = 50 mg, By Mouth, Daily, # 18 tablet, 1 Refills, Soft Stop, 04/18/19 9:51:00 EST, Tablet,[facility] #30388, 160, cm, 04/18/19 9:08:00 EST, Height, 47.8, kg, 04/04/19 11:54:00 EST, Dry Weight Start Date: 04/18/19 Status: Ordered Truvada 200 mg-300 mg oral tablet 1 tablet, By Mouth, Daily, # 30 tablet, 0 Refills, Maintenance, 04/19/19 13:05:00 EST, Tablet, [facility] #13475, 1 tablet By Mouth Daily, 160, cm, 04/18/19 9:08:00 EST, Height, 47.8, kg, 04/04/19 11:54:00 EST, Dry Weight Start Date: 04/19/19 Status: Ordered Vitamin D3 1000 intl units oral capsule 1 capsule = 1,000 International_Units, By Mouth, Daily, # 100 capsule, 0 Refills, Maintenance, 04/18/19 9:51:00 EST, Capsule, [facility] #[id number], 160, cm, 04/18/19 9:08:00 EST, Height, 47.8,kg, [...]
--- OUTSIDE RECORDS SUMMARY | 2022-10-23 01:18 | XMS_ITS | Continuity of Care Document ---
Author Name Unknown Organization [facility] Address [address] [place] [address]- Care Team Providers Care Van Driver Name Role Phone Romel Magallon MD Primary Care Physician Encounter [facility] Date(s): 05/13/19 - 05/20/19 [facility] [address] [place] [address]- [facility] Encounter Diagnosis Gastritis(Discharge Diagnosis) - 05/13/19 Attending Physician: Lux BATRES, Kannan Gleason Referring Physician: Romel Magallon MD Allergies, Adverse [...] 05/13/19 12:22:00 EST, Route to Pharmacy Electronically, [facility] #[id number], 160, cm, 05/13/19 11:57:00 EST, Height, 47.8... Start Date: 05/13/19 Status: Ordered hydroquinone 2% topical cream 1 application, Topically, 2 times a day, Costa Rican, apply to dark lesions on face, use sunscreen withuse, # 28 Gm, 1 Refills, Maintenance, 10/06/18 13:14:56 EDT, Cream, 1 application Topically 2 timesa day,Instr:Costa Rican, apply to dark lesions on face,... Start [...] Refills, Maintenance, 04/18/19 9:51:00 EST, REC Powder, [facility] #[id number], 17 Gm By Mouth 2 times a day,PRN:Constipation,Instr:dissolve in water... Start Date: 04/18/19 Status: Ordered Nabumetone Tablet TK 1 T PO QID Start Date: 05/17/18 Status: Ordered simethicone 80 mg oral tablet 1 tablet = 80 mg, Chew, 3 times a day after meals, PRN as needed for gas, # 60 tablet, 0 Refills, Maintenance, 04/18/19 9:52:00 EST, Tablet, [facility] #[id number], 160, cm, 04/18/19 9:08:00 EST, Height, 47.8, kg, 04/04/19 11:54:00 EST, Dry Weight Start Date: 04/18/19 Status: Ordered SUMAtriptan 50 mg oral tablet 1 tablet = 50 mg, By Mouth, Daily, # 18 tablet, 1 Refills, Soft Stop, 04/18/19 9:51:00 EST, Tablet,[facility] #[id number], 160, cm, 04/18/19 9:08:00 EST, Height, 47.8, kg, 04/04/19 11:54:00 EST, Dry Weight Start Date: 04/18/19 Status: Ordered Truvada 200 mg-300 mg oral tablet 1 tablet, By Mouth, Daily, # 30 tablet, 2 Refills, Maintenance, 04/21/19 8:52:00 EST, Tablet, [facility] #04172, 1 tablet By Mouth Daily, 160, cm, 04/18/19 9:08:00 EST, Height, 47.8, kg, 04/04/19 11:54:00 EST, Dry Weight Start Date: 04/21/19 Status: Ordered Truvada 200 mg-300 mg oral tablet 1 tablet, By Mouth, Daily, # 30 tablet, 0 Refills, Maintenance, 04/19/19 13:05:00 EST, Tablet, [facility] #[id number], 1 tablet By Mouth Daily, 160, cm, 04/18/19 9:08:00 EST, Height, 47.8, kg, 04/04/19 11:54:00 EST, Dry Weight Start Date: 04/19/19 Status: Ordered Vitamin D3 1000 intl units oral capsule 1 capsule = 1,000 International_Units, By Mouth, Daily, # 100 capsule, 0 Refills, Maintenance, 04/18/19 9:51:00 EST, Capsule, [facility] #[id number], 160, cm, 04/18/19 9:08:00 EST, Height, 47.8,kg, [...] D deficiency(Confirmed) Active Loss of weight(Confirmed) Active Diagnosis Diagnosis Type Effective Dates Health Status [facility] Service Informant Gastritis Discharge Diagnosis 05/13/19 Vital Signs Most recent to oldest [Reference Range]: 1 Height 160.00 cm (05/13/19 11:57 AM) Oxygen Saturation [94-100 %] 99 % (05/13/19 11:57 AM) Pulse Rate [55-90 bpm] 100 bpm *H* (05/13/19 11:57 AM) Blood Pressure [90-138/55-84 mm Hg] 110/ 74mm Hg (05/13/19 11:57 AM) Temperature [96.8-100.4 DegF] 98.9 DegF (05/13/19 11:57 AM) Mode of Delivery (Oxygen) Room air (05/13/19 11:57 AM) Blood pressure sites Arm, left (05/13/19 11:57 AM) Temperature Route Oral (05/13/19 11:57 AM) Social History Social History Type Response Smoking Status Never smoker entered on: 11/03/13 Sex Female
--- OUTSIDE RECORDS SUMMARY | 2022-10-23 01:18 | XMS_ITS | Continuity of Care Document ---
Author Name Unknown Organization [facility] Address [address] [place] [address]- Care Team Providers Care Special Needs Tutor Name Role Phone Davidson BATRES, Ezio Laguerre Primary Care Physician Encounter [facility] [place] Date(s): 08/02/20 - 09/01/20 [facility] [address], [place] [address] Attending Physician: Janet Lundberg Admitting Physician: [...] given dated 10/15/12 2Admin Note: VIS GIVEN yoruba 02/08/08 Medications dicyclomine 10 mg oral capsule See Instructions, TAKE 1 CAPSULE BY MOUTH FOUR TIMES A DAY NEEDED FOR PAIN, # 60 capsule, 1 Refills, Maintenance, [id number], 160, cm, 02/09/20 11:43:00 EST, Height, 42.2, kg, 02/09/20 11:49:00 EST, Dry Weight Start Date: 04/25/20 Status: Ordered dicyclomine 10 mg oral capsule 1 capsule = 10 mg, By Mouth, 4 times a day, PRN Pain , Moderate, # 60 capsule, 5 Refills, Maintenance, 07/04/20 11:41:00 EDT, Capsule, [facility]/pharmacy #[id number], 160, cm, 07/04/20 8:39:00 EDT, Height, [...] 0 Refills, Maintenance, 03/05/20 16:16:00 EST, Tablet, [facility]/pharmacy #1130, 160, cm, 02/09/20 11:43:00 EST, Height, 42.2, kg, 02/09/20 11:49:00 EST, Dry Weight Start Date: 03/05/20 Status: Ordered hydroquinone 2% topical cream 1 application, Topically, 2 times a day, Burkinan, apply to dark lesions on face, use sunscreen withuse, # 28 Gm, 1 Refills, Maintenance, 10/06/18 13:14:56 EDT, Cream, 1 application Topically 2 timesa day,Instr:Burkinan, apply to dark lesions on face,... Start Date: 10/06/18 Status: Ordered Lactaid 3000 units oral tablet 3 tablet = 9,000 units, By Mouth, 3 times a day with meals, # 120 tablet, 0 Refills, Maintenance, 12/08/19 14:49:00 EDT, Tablet, [facility] #[id number], 160, cm, 09/26/19 13:56:00 EDT, Height, 47.8, [...] Refills, Maintenance,12/08/19 14:51:00 EDT, Suspension, [facility] #[id number], 160, cm, 09/26/19 13:56:00 EDT, Height, 47.8, [...] mL, 0 Refills, Maintenance, 12/26/19 14:02:00 EDT, [facility] #[id number],Drink 240mL every 10-15 minutes until first half [...] Gm, 0 Refills, Maintenance, 08/03/20 12:17:00 EDT, [facility]/pharmacy #1130, Partial fill upon patient request if the prescription is... Start Date: 08/03/20 Status: Ordered simethicone 80 mg oral tablet 1 tablet = 80 mg, Chew, 3 times a day after meals, PRN as needed for gas, # 60 tablet, 0 Refills, Maintenance, 04/18/19 9:52:00 EST, Tablet, [facility] #[id number], 160, cm, 04/18/19 9:08:00 EST, Height, 47.8, kg, 04/04/19 11:54:00 EST, Dry Weight Start Date: 04/18/19 Status: Ordered SUMAtriptan 50 mg oral tablet 1 tablet = 50 mg, By Mouth, Daily, # 18 tablet, 1 Refills, Soft Stop, 03/05/20 16:16:00 EST, Tablet, [facility]/pharmacy #1130, 160, cm, 02/09/20 11:43:00 EST, Height, 42.2, kg, 02/09/20 11:49:00 EST, Dry Weight Start Date: 03/05/20 Status: Ordered Truvada 200 mg-300 mg oral tablet 1 tablet, By Mouth, Daily, re-start PreP, # 30 tablet, 3 Refills, Maintenance, 05/29/20 14:58:00 EST, Tablet, [facility]/pharmacy #1130, 1 tablet By Mouth Daily,Instr:re-start PreP, 160, cm, 02/09/20 11:43:00 EST, Height, 42.2, kg, 02/09/20 11:49:00 EST, Dry... Start Date: 05/29/20 Status: Ordered Truvada 200 mg-300 mg oral tablet 1 tablet, By Mouth, Daily, # 30 tablet, 0 Refills, Maintenance, 04/19/19 13:05:00 EST, Tablet, [facility] #[id number], 1 tablet By Mouth Daily, 160, cm, 04/18/19 9:08:00 EST, Height, 47.8, kg, 04/04/19 11:54:00 EST, Dry Weight Start Date: 04/19/19 Status: Ordered Tylenol 325 mg oral tablet 650 mg, 2, tablet, By Mouth, Every 6 hours, PRN, not to exceed 4000 mg/day, Burkinan label, # 120 tablet, Refills 1, Tot. Refills 1, Maintenance, Pain , Moderate, 03/05/20 16:16:00 EST, Route to Pharmacy Electronically, [facility]/pharmacy #1130, Partial fill... Start Date: 03/05/20 Status: Ordered Vitamin D3 1000 intl units oral capsule 1 capsule = 1,000 International_Units, By Mouth, Daily, # 100 capsule, 0 Refills, Maintenance, 04/18/19 9:51:00 EST, Capsule, [facility] #[id number], 160, cm, 04/18/19 9:08:00 EST, Height, 47.8,kg, [...]
--- OUTSIDE RECORDS SUMMARY | 2022-10-23 01:18 | XMS_ITS | Continuity of Care Document ---
Author Name Unknown Organization [facility] [place] Address [address] [place] [address]- Care Team Providers Care Nylon Winder Name Role Phone Naun BATRES, Romel Ma Primary Care Physician [phone] Encounter [facility] Date(s): 10/12/19 - 11/11/19 [facility] [place] [address] [place] [address]- [facility] Attending Physician: Janet Lundberg Admitting Physician: AdmJanet [...] given dated 10/15/12 2Admin Note: VIS GIVEN danish 02/08/08 Medications calcium carbonate-simethicone 250 mg-62.5 mg oral capsule 2 capsule, By Mouth, Every 2 hours, PRN for gas, # 48 capsule, 0 Refills, Maintenance, 06/03/19 20:42:00 EDT, Capsule, [facility] #[id number], 2 capsule By Mouth Every 2 hours,PRN:for [...] 05/13/19 12:22:00 EST, Route to Pharmacy Electronically, [facility] #[id number], 160, cm, 05/13/19 11:57:00 EST, Height, 47.8... Start Date: 05/13/19 Status: Ordered hydroquinone 2% topical cream 1 application, Topically, 2 times a day, Ivorian, apply to dark lesions on face, use sunscreen withuse, # 28 Gm, 1 Refills, Maintenance, 10/06/18 13:14:56 EDT, Cream, 1 application Topically 2 timesa day,Instr:Ivorian, apply to dark lesions on face,... Start [...] Refills, Maintenance, 04/18/19 9:51:00 EST, REC Powder, [facility] #[id number], 17 Gm By Mouth 2 times a day,PRN:Constipation,Instr:dissolve in water... Start Date: 04/18/19 Status: Ordered Nabumetone Tablet TK 1 T PO QID Start Date: 05/17/18 Status: Ordered omeprazole 40 mg oral enteric coated capsule 1 capsule = 40 mg, By Mouth, Daily, # 90 capsule, 0 Refills, Maintenance, 06/03/19 20:41:00 EDT, ECCapsule, [facility] #[id number], 160, cm, 06/02/19 10:06:00 EDT, Height, 47.8, kg, 04/04/19 11:54:00 EST, Dry Weight Start Date: 06/03/19 Status: Ordered pantoprazole 20 mg oral delayed release tablet 1 tablet = 20 mg, By Mouth, Daily, Take 30-60 minutes before eating, # 30 tablet, 2 Refills, Maintenance, 09/26/19 14:29:00 EDT, CR Tablet, Instructions in Ivorian, 160, cm, 09/26/19 13:56:00 EDT, Height, 47.8, kg, 04/04/19 11:54:00 EST, Dry Weight Start Date: 09/26/19 Status: Ordered simethicone 80 mg oral tablet 1 tablet = 80 mg, Chew, 3 times a day after meals, PRN as needed for gas, # 60 tablet, 0 Refills, Maintenance, 04/18/19 9:52:00 EST, Tablet, [facility] #[id number], 160, cm, 04/18/19 9:08:00 EST, Height, 47.8, kg, 04/04/19 11:54:00 EST, Dry Weight Start Date: 04/18/19 Status: Ordered SUMAtriptan 50 mg oral tablet 1 tablet = 50 mg, By Mouth, Daily, # 18 tablet, 1 Refills, Soft Stop, 04/18/19 9:51:00 EST, Tablet,[facility] #14329, 160, cm, 04/18/19 9:08:00 EST, Height, 47.8, kg, 04/04/19 11:54:00 EST, Dry Weight Start Date: 04/18/19 Status: Ordered Truvada 200 mg-300 mg oral tablet 1 tablet, By Mouth, Daily, # 30 tablet, 3 Refills, Maintenance, 07/12/19 13:47:00 EDT, Tablet, [facility] #[id number], 1 tablet By Mouth Daily, 160, cm, 06/02/19 10:06:00 EDT, Height, 47.8, kg, 04/04/19 11:54:00 EST, Dry Weight Start Date: 07/12/19 Status: Ordered Truvada 200 mg-300 mg oral tablet 1 tablet, By Mouth, Daily, # 30 tablet, 0 Refills, Maintenance, 04/19/19 13:05:00 EST, Tablet, [facility] #[id number], 1 tablet By Mouth Daily, 160, cm, 04/18/19 9:08:00 EST, Height, 47.8, kg, 04/04/19 11:54:00 EST, Dry Weight Start Date: 04/19/19 Status: Ordered Vitamin D3 1000 intl units oral capsule 1 capsule = 1,000 International_Units, By Mouth, Daily, # 100 capsule, 0 Refills, Maintenance, 04/18/19 9:51:00 EST, Capsule, [facility] #[id number], 160, cm, 04/18/19 9:08:00 EST, Height, 47.8,kg, [...]
--- OUTSIDE RECORDS SUMMARY | 2022-10-23 01:18 | XMS_ITS | Continuity of Care Document ---
Author Name Unknown Organization [facility] Address [address] [place] [address]- Care Team Providers Care Trauma Program Manager Name Role Phone Marilinrose JACKSONJillian Primary Care Physician Encounter [facility] [place] Date(s): 02/12/22 - 04/18/22 [facility] [address], [place] [address] Attending Physician: Jesi Encarnacion NP Admitting Physician: Jesi Encarnacion NP Allergies, Adverse Reactions, Alerts Substance Reaction [...] 12/07/12 Gi douglas 1Admin Note: VIS GIVEN urdu 02/08/08 2Admin Note: vis given dated 10/15/12 Medications Combipatch 0.05 mg-0.14 mg/24 hours transdermal film, extended release 1 patch, Topically, Every Thursday and , # 8 patch, 6 Refills, Maintenance, 01/08/22 20:12:00EDT, [facility]/pharmacy #[id number], Partial fill upon patient request [...] 2 weeks, then 1 tablet daily thereafter Polish label please, # 90 tablet, 0 Refills, Maintenance, 02/12/22 11:01:00 EST, Tablet, [facility]/pharmacy #1130, Partial fill upon patient request i... Start Date: 02/12/22 Stop Date: 05/13/22 Status: Ordered MiraLax oral powder for reconstitution = 17 Gm, By Mouth, Daily, Titrate as needed, # 527 Gm, 1 Refills, Maintenance, 04/22/21 10:51:00 EST, [facility]/pharmacy #1130, Partial fill upon patient request [...] S Resident Member Role: PCP Address: Address: [address] [place] [address]- Care Team Related Persons Name: DANA MARTIN Address: home [address] [place] [address] Name: TERENCE MARTIN Name: CHAVA VASQUEZ Address: home [address] [place] [id number] Name: PT, STATES NONE
--- OUTSIDE RECORDS SUMMARY | 2022-10-23 01:18 | XMS_ITS | Continuity of Care Document ---
Author Name Unknown Organization [facility] Address [address] [place] [address]- Care Team Providers Care Immigration Manager Name Role Phone Naun BATRES, Romel Ma Primary Care Physician [phone] Encounter [facility] Date(s): 04/04/19 - 04/14/19 [facility] [address] [place] [address]- [facility] Attending Physician: Janet Lundberg Admitting Physician: Janet [...] given dated 10/15/12 2Admin Note: VIS GIVEN ugandan 02/08/08 Medications dicyclomine 10 mg oral capsule [...] 1 application, Topically, 2 times a day, Bulgarian, apply to dark lesions on face, use sunscreen withuse, # 28 Gm, 1 Refills, Maintenance, 10/06/18 13:14:56 EDT, Cream, 1 application Topically 2 timesa day,Instr:Bulgarian, apply to dark lesions on face,... Start [...]
--- OUTSIDE RECORDS SUMMARY | 2022-10-23 01:18 | XMS_ITS | Continuity of Care Document ---
Author Name Unknown Organization [facility] Address [address] [place] [address]- Care Team Providers Care Railroad Signal Technician Name Role Phone Marilinrose JACKSONJillian Primary Care Physician Encounter [facility] Date(s): 11/06/21 - 12/06/21 [facility] [address] [place], [place] [address] Attending Physician: Janet Lundberg Admitting Physician: AdmJanet [...] MODERATE PAIN, # 120 capsule, 1 Refills, [id number], 160, cm, 04/22/21 10:31:00 EST, Height, 42.2, kg, 02/09/20 11:49:00 EST, Dry Weight Start Date: 05/21/21 Status: Ordered hydroquinone 2% topical cream 1 application, Topically, 2 times a day, Solomon Islander, apply to dark lesions on face, use sunscreen withuse, # 28 Gm, 1 Refills, Maintenance, 11/08/20 10:16:00 EDT, Cream, [facility] #[id number], 1 application Topically 2 times a day,Instr:Solomon Islander, a... Start Date: 11/08/20 Status: Ordered meclizine 25 mg oral tablet 1 tablet = 25 mg, By Mouth, 3 times a day, PRN for dizziness, # 90 tablet, 1 Refills, Maintenance, 11/08/20 10:17:00 EDT, Tablet, [facility] #[id number], 160, cm, 11/08/20 9:35:00 EDT, Height, 42.2, [...] at bedtime, # 30 tablet, 3 Refills, [facility] 77015, 160, cm, 07/29/21 11:45:00 EDT, Height, 42.2, kg, 02/09/20 11:49:00 EST, Dry Weight Start Date: 08/06/21 Status: Ordered NuLYTELY with Flavor Packs oral powder for reconstitution See Instructions, Drink 240mL every 15-20 minutes until first half is gone. Repeat 6 hours prior toprocedure., # 4,000 mL, 0 Refills, Maintenance, 04/22/21 10:50:00 EST, [facility]/pharmacy #1130, Partial fill upon patient [...] 0 Refills, Maintenance, 11/08/20 10:17:00 EDT, Tablet, [facility] #[id number], 160, cm, 11/08/20 9:35:00 EDT, Height, 42.2, kg, 02/09/20 11:49:00 EST, Dry Weight Start Date: 11/08/20 Status: Ordered SUMAtriptan 50 mg oral tablet 1 tablet = 50 mg, By Mouth, Daily, PRN as needed for migraine headache, may repeat dose in 2 hours if needed, # 18 tablet, 0 Refills, Soft Stop, 11/18/21 15:46:00 EDT, Tablet, [facility]/pharmacy #1130, 160, cm, 08/22/21 14:32:00 EDT, [...] tablet, 0 Refills, Maintenance, 07/29/21 11:16:00 EDT, [facility] #[id number], Partial fill upon patient request if the [...] Team Personnel Name: Jillian Bautista DO Address: [address] [place] [address]
--- OUTSIDE RECORDS SUMMARY | 2022-10-23 01:18 | XMS_ITS | Continuity of Care Document ---
Author Name Unknown Organization [facility] Address [address] [place] [address]- Care Team Providers Care Veneer Glue Spreader Name Role Phone Romel Magallon MD Primary Care Physician [phone] Encounter [facility] Date(s): 02/03/19 - 06/03/19 [facility] [address] [place] [address]- [facility] Attending Physician: Garret Mcguire MD Admitting [...] given dated 10/15/12 2Admin Note: VIS GIVEN macedonian 02/08/08 Medications calcium carbonate-simethicone 250 mg-62.5 mg oral capsule 2 capsule, By Mouth, Every 2 hours, PRN for gas, # 48 capsule, 0 Refills, Maintenance, 06/03/19 20:42:00 EDT, Capsule, [facility] #[id number], 2 capsule By Mouth Every 2 hours,PRN:for gas, 160, cm, 06/02/19 10:06:00 EDT, Height, 47.8, kg, 01/13/2... Start Date: 06/03/19 Status: Ordered dicyclomine 10 [...] 05/13/19 12:22:00 EST, Route to Pharmacy Electronically, [facility] #[id number], 160, cm, 05/13/19 11:57:00 EST, Height, 47.8... Start Date: 05/13/19 Status: Ordered hydroquinone 2% topical cream 1 application, Topically, 2 times a day, Chilean, apply to dark lesions on face, use sunscreen withuse, # 28 Gm, 1 Refills, Maintenance, 10/06/18 13:14:56 EDT, Cream, 1 application Topically 2 timesa day,Instr:Chilean, apply to dark lesions on face,... Start [...] Refills, Maintenance, 04/18/19 9:51:00 EST, REC Powder, [facility] #84399, 17 Gm By Mouth 2 times a day,PRN:Constipation,Instr:dissolve in water... Start Date: 04/18/19 Status: Ordered Nabumetone Tablet TK 1 T PO QID Start Date: 05/17/18 Status: Ordered omeprazole 40 mg oral enteric coated capsule 1 capsule = 40 mg, By Mouth, Daily, # 90 capsule, 0 Refills, Maintenance, 06/03/19 20:41:00 EDT, ECCapsule, [facility] #70117, 160, cm, 06/02/19 10:06:00 EDT, Height, 47.8, kg, 04/04/19 11:54:00 EST, Dry Weight Start Date: 06/03/19 Status: Ordered simethicone 80 mg oral tablet 1 tablet = 80 mg, Chew, 3 times a day after meals, PRN as needed for gas, # 60 tablet, 0 Refills, Maintenance, 04/18/19 9:52:00 EST, Tablet, [facility] #49577, 160, cm, 04/18/19 9:08:00 EST, Height, 47.8, kg, 04/04/19 11:54:00 EST, Dry Weight Start Date: 04/18/19 Status: Ordered SUMAtriptan 50 mg oral tablet 1 tablet = 50 mg, By Mouth, Daily, # 18 tablet, 1 Refills, Soft Stop, 04/18/19 9:51:00 EST, Tablet,[facility] #12312, 160, cm, 04/18/19 9:08:00 EST, Height, 47.8, kg, 04/04/19 11:54:00 EST, Dry Weight Start Date: 04/18/19 Status: Ordered Truvada 200 mg-300 mg oral tablet 1 tablet, By Mouth, Daily, # 30 tablet, 2 Refills, Maintenance, 04/21/19 8:52:00 EST, Tablet, [facility] #29251, 1 tablet By Mouth Daily, 160, cm, 04/18/19 9:08:00 EST, Height, 47.8, kg, 04/04/19 11:54:00 EST, Dry Weight Start Date: 04/21/19 Status: Ordered Truvada 200 mg-300 mg oral tablet 1 tablet, By Mouth, Daily, # 30 tablet, 0 Refills, Maintenance, 04/19/19 13:05:00 EST, Tablet, [facility] #98344, 1 tablet By Mouth Daily, 160, cm, 04/18/19 9:08:00 EST, Height, 47.8, kg, 04/04/19 11:54:00 EST, Dry Weight Start Date: 04/19/19 Status: Ordered Vitamin D3 1000 intl units oral capsule 1 capsule = 1,000 International_Units, By Mouth, Daily, # 100 capsule, 0 Refills, Maintenance, 04/18/19 9:51:00 EST, Capsule, [facility] #90127, 160, cm, 04/18/19 9:08:00 EST, Height, 47.8,kg, [...]
--- OUTSIDE RECORDS SUMMARY | 2022-10-23 01:18 | XMS_ITS | Continuity of Care Document ---
Author Name Unknown Organization [facility] Address [address] [place] [address]- Care Team Providers Care Outreach Liaison Name Role Phone Ezio Cedeño MD Primary Care Physician Encounter [facility] [place] Date(s): 05/29/20 - 06/28/20 [facility]/[address] [address] Attending Physician: Admkingsley, Janet Admitting Physician: AdmtrJanet Referring Physician: Admtr, Ar8 Allergies, Adverse Reactions, [...] given dated 10/15/12 2Admin Note: VIS GIVEN faroese 02/08/08 Medications dicyclomine 10 mg oral capsule [...] PAIN, # 60 capsule, 1 Refills, Maintenance, [facility] 12233, 160, cm, 02/09/20 11:43:00 EST, Height, 42.2, [...] 1 application, Topically, 2 times a day, St Lucian, apply to dark lesions on face, use sunscreen withuse, # 28 Gm, 1 Refills, Maintenance, 10/06/18 13:14:56 EDT, Cream, 1 application Topically 2 timesa day,Instr:St Lucian, apply to dark lesions on face,... Start Date: 10/06/18 Status: Ordered Lactaid 3000 units oral tablet 3 tablet = 9,000 units, By Mouth, 3 times a day with meals, # 120 tablet, 0 Refills, Maintenance, 12/08/19 14:49:00 EDT, Tablet, [facility] #[id number], 160, cm, 09/26/19 13:56:00 EDT, Height, 47.8, [...] 0 Refills, Maintenance, 06/06/20 16:50:00 EDT, Tablet, [facility]/pharmacy #1130, Partial fill upon patient request if the prescription is for a schedule II opioid drug., 160, cm, 06/04/20 18:15:00 EDT, Height... Start Date: 06/06/20 Stop Date: 06/20/20 Status: Ordered Milk of Magnesia 8% oral suspension 30 mL = 2.4 Gm, By Mouth, Daily at bedtime, PRN for constipation, # 300 mL, 0 Refills, Maintenance,12/08/19 14:51:00 EDT, Suspension, [facility] #55006, 160, cm, 09/26/19 13:56:00 EDT, Height, 47.8, kg, 04/04/19 11:54:00 EST, Dry Weight Start Date: 12/08/19 Status: Ordered NuLYTELY with Flavor Packs oral powder for reconstitution See Instructions, Drink 240mL every 10-15 minutes until first half is gone. Repeat 6 hours prior toprocedure., # 4,000 mL, 0 Refills, Maintenance, 12/26/19 14:02:00 EDT, [facility] #02431,Drink 240mL every 10-15 minutes until first half [...] 0 Refills, Maintenance, 04/18/19 9:52:00 EST, Tablet, [facility] #[id number], 160, cm, 04/18/19 9:08:00 EST, Height, 47.8, kg, 04/04/19 11:54:00 EST, Dry Weight Start Date: 04/18/19 Status: Ordered SUMAtriptan 50 mg oral tablet 1 tablet = 50 mg, By Mouth, Daily, # 18 tablet, 1 Refills, Soft Stop, 03/05/20 16:16:00 EST, Tablet, [facility] [...] 0 Refills, Maintenance, 04/19/19 13:05:00 EST, Tablet, [facility] #41886, 1 tablet By Mouth Daily, 160, cm, 04/18/19 9:08:00 EST, Height, 47.8, kg, 04/04/19 11:54:00 EST, Dry Weight Start Date: 04/19/19 Status: Ordered Tylenol 325 mg oral tablet 650 mg, 2, tablet, By Mouth, Every 6 hours, PRN, not to exceed 4000 mg/day, St Lucian label, # 120 tablet, Refills 1, Tot. Refills 1, Maintenance, Pain , Moderate, 03/05/20 16:16:00 EST, Route to Pharmacy Electronically, [facility]/pharmacy #[id number], Partial fill... Start Date: 03/05/20 Status: Ordered Vitamin D3 1000 intl units oral capsule 1 capsule = 1,000 International_Units, By Mouth, Daily, # 100 capsule, 0 Refills, Maintenance, 04/18/19 9:51:00 EST, Capsule, [facility] #[id number], 160, cm, 04/18/19 9:08:00 EST, Height, 47.8,kg, [...]
--- OUTSIDE RECORDS SUMMARY | 2022-10-23 01:18 | XMS_ITS | Continuity of Care Document ---
Author Name Unknown Organization [facility] Address [address] [place] [address]- Care Team Providers Care Family And Consumer Science Professor Name Role Phone Jillian Bautista DO Primary Care Physician [phone] Encounter [facility] Date(s): 02/20/22 - 05/24/22 [facility] [address] [place] [address]- Attending Physician: Junior Villatoro MD Admitting Physician: Junior Villatoro MD Referring Physician: Jillian Bautista DO Allergies, Adverse Reactions, Alerts Substance Reaction Severity [...] 12/07/12 Gi douglas 1Admin Note: VIS GIVEN pashto 02/08/08 2Admin Note: vis given dated 10/15/12 [...] 1 Refills, Maintenance, 05/19/22 13:52:00 EST, Tablet, [facility]/pharmacy #1130, Partial fill upon patient request if the prescription is for a schedule II opioid drug., 160, cm, ... Start Date: 05/19/22 Status: Ordered dicyclomine 10 mg oral capsule 1 capsule, By Mouth, 4 times a day, PRN NEEDED FOR MODERATE PAIN, # 120 capsule, 1 Refills, 03/05/22 12:35:00 EST, [facility]/pharmacy #1130, 160, cm, 01/08/22 9:48:00 EDT, Height Start Date: 03/05/22 Status: Ordered escitalopram 10 mg oral tablet 1 tablet = 10 mg, By Mouth, Daily, Take half tablet daily for 2 weeks, then 1 tablet daily thereafter Togolese label please, # 90 tablet, 0 Refills, Maintenance, 02/12/22 11:01:00 EST, Tablet, [facility]/pharmacy #1130, Partial fill upon patient request i... Start Date: 02/12/22 Stop Date: 05/13/22 Status: Ordered MiraLax oral powder for reconstitution = 17 Gm, By Mouth, Daily, Titrate as needed, # 527 Gm, 1 Refills, Maintenance, 04/22/21 10:51:00 EST, [facility]/pharmacy #1130, Partial fill upon patient [...] 05/19/22 13:53:00 EST, Route to Pharmacy Electronically, [facility]/pharmacy #[id number], Partial fill upon patient [...] Refills, Soft Stop, 05/19/22 13:52:00 EST, Tablet, [facility]/pharmacy #1130, 160, cm, 05/19/22 13:39:00 EST, Height [...] S Resident Member Role: PCP Address: Address: [address] [place] [address]- Care Team Related Persons Name: DANA MARTIN Address: home [address] [place] [address] Name: TERENCE MARTIN Name: CHAVA VASQUEZ Address: home [address] [place] [address] Name: JONES TAPIA
--- OUTSIDE RECORDS SUMMARY | 2022-10-23 01:18 | XMS_ITS | Continuity of Care Document ---
Author Name Unknown Organization [facility] Address [address] [place] [address]- Care Team Providers Care Automation Qa Lead Name Role Phone Davidson BATRES, Ezio Laguerre Primary Care Physician [place] [facility] 09/02/20 [facility] [address] [place] [id number] Allergies, Adverse Reactions, Alerts Substance [...] given dated 10/15/12 2Admin Note: VIS GIVEN uzbek 02/08/08 Medications dicyclomine 10 mg oral capsule See Instructions, TAKE 1 CAPSULE BY MOUTH FOUR TIMES A DAY NEEDED FOR PAIN, # 60 capsule, 1 Refills, Maintenance, [id number], 160, cm, 02/09/20 11:43:00 EST, Height, 42.2, [...] 0 Refills, Maintenance, 03/05/20 16:16:00 EST, Tablet, [facility]/pharmacy #1130, 160, cm, 02/09/20 11:43:00 EST, Height, 42.2, kg, 02/09/20 11:49:00 EST, Dry Weight Start Date: 03/05/20 Status: Ordered hydroquinone 2% topical cream 1 application, Topically, 2 times a day, Anguillan, apply to dark lesions on face, use sunscreen withuse, # 28 Gm, 1 Refills, Maintenance, 10/06/18 13:14:56 EDT, Cream, 1 application Topically 2 timesa day,Instr:Anguillan, apply to dark lesions on face,... Start Date: 10/06/18 Status: Ordered Lactaid 3000 units oral tablet 3 tablet = 9,000 units, By Mouth, 3 times a day with meals, # 120 tablet, 0 Refills, Maintenance, 12/08/19 14:49:00 EDT, Tablet, [facility] #[id number], 160, cm, 09/26/19 13:56:00 EDT, Height, 47.8, [...] mL, 0 Refills, Maintenance,12/08/19 14:51:00 EDT, Suspension, [facility] #[id number], 160, cm, 09/26/19 13:56:00 EDT, Height, 47.8, [...] mL, 0 Refills, Maintenance, 12/26/19 14:02:00 EDT, [facility] #[id number],Drink 240mL every 10-15 minutes until first half [...] Gm, 0 Refills, Maintenance, 08/03/20 12:17:00 EDT, [facility]/pharmacy #1130, Partial fill upon patient request if the prescription is... Start Date: 08/03/20 Status: Ordered simethicone 80 mg oral tablet 1 tablet = 80 mg, Chew, 3 times a day after meals, PRN as needed for gas, # 60 tablet, 0 Refills, Maintenance, 04/18/19 9:52:00 EST, Tablet, [facility] #[id number], 160, cm, 04/18/19 9:08:00 EST, Height, 47.8, kg, 04/04/19 11:54:00 EST, Dry Weight Start Date: 04/18/19 Status: Ordered SUMAtriptan 50 mg oral tablet 1 tablet = 50 mg, By Mouth, Daily, # 18 tablet, 1 Refills, Soft Stop, 03/05/20 16:16:00 EST, Tablet, [facility]/pharmacy #1130, 160, cm, 02/09/20 11:43:00 EST, Height, 42.2, kg, 02/09/20 11:49:00 EST, Dry Weight Start Date: 03/05/20 Status: Ordered Truvada 200 mg-300 mg oral tablet 1 tablet, By Mouth, Daily, re-start PreP, # 30 tablet, 3 Refills, Maintenance, 05/29/20 14:58:00 EST, Tablet, [facility]/pharmacy #1130, 1 tablet By Mouth Daily,Instr:re-start PreP, 160, cm, 02/09/20 11:43:00 EST, Height, 42.2, kg, 02/09/20 11:49:00 EST, Dry... Start Date: 05/29/20 Status: Ordered Truvada 200 mg-300 mg oral tablet 1 tablet, By Mouth, Daily, # 30 tablet, 0 Refills, Maintenance, 04/19/19 13:05:00 EST, Tablet, [facility] #02300, 1 tablet By Mouth Daily, 160, cm, 04/18/19 9:08:00 EST, Height, 47.8, kg, 04/04/19 11:54:00 EST, Dry Weight Start Date: 04/19/19 Status: Ordered Tylenol 325 mg oral tablet 650 mg, 2, tablet, By Mouth, Every 6 hours, PRN, not to exceed 4000 mg/day, Anguillan label, # 120 tablet, Refills 1, Tot. Refills 1, Maintenance, Pain , Moderate, 03/05/20 16:16:00 EST, Route to Pharmacy Electronically, [facility]/pharmacy #1130, Partial fill... Start Date: 03/05/20 Status: Ordered Vitamin D3 1000 intl units oral capsule 1 capsule = 1,000 International_Units, By Mouth, Daily, # 100 capsule, 0 Refills, Maintenance, 04/18/19 9:51:00 EST, Capsule, [facility] #[id number], 160, cm, 04/18/19 9:08:00 EST, Height, 47.8,kg, [...]
--- OUTSIDE RECORDS SUMMARY | 2022-10-23 01:18 | XMS_ITS | Continuity of Care Document ---
Author Name Unknown Organization [facility] Address [address] [place] [address]- Care Team Providers Care Coping Machine Operator Name Role Phone Davidson BATRES, Ezio Simms Primary Care Physician Encounter [facility] Date(s): 03/05/20 - 04/04/20 [facility] [address] [place] [id number] Attending Physician: Janet Lundberg Admitting Physician: AdmJanet [...] given dated 10/15/12 2Admin Note: VIS GIVEN urdu 02/08/08 Medications dicyclomine 10 mg oral capsule 1 capsule = 10 mg, By Mouth, 4 times a day, PRN Pain , Moderate, for 30 days, # 60 capsule, 1 Refills, Hard Stop 04/09/20 17:32:00 EST, 02/09/20 17:32:00 EST, Capsule, [facility] #[id number], 160, cm, 02/09/20 11:43:00 EST, Height, 42.2, kg, 01/21... Start Date: 02/09/20 Stop Date: 04/09/20 Status: Ordered dicyclomine 10 mg oral capsule 1 capsule = 10 mg, By Mouth, 4 times a day, PRN Pain , Moderate, # 60 capsule, 1 Refills, Maintenance, 02/24/20 12:26:00 EST, Capsule, [facility]/pharmacy #1130, 160, cm, 02/09/20 11:43:00 [...] 0 Refills, Maintenance, 03/05/20 16:16:00 EST, Tablet, [facility]/pharmacy #1130, 160, cm, 02/09/20 11:43:00 EST, Height, 42.2, kg, 02/09/20 11:49:00 EST, Dry Weight Start Date: 03/05/20 Status: Ordered hydroquinone 2% topical cream 1 application, Topically, 2 times a day, Zambian, apply to dark lesions on face, use sunscreen withuse, # 28 Gm, 1 Refills, Maintenance, 10/06/18 13:14:56 EDT, Cream, 1 application Topically 2 timesa day,Instr:Zambian, apply to dark lesions on face,... Start Date: 10/06/18 Status: Ordered Lactaid 3000 units oral tablet 3 tablet = 9,000 units, By Mouth, 3 times a day with meals, # 120 tablet, 0 Refills, Maintenance, 12/08/19 14:49:00 EDT, Tablet, [facility] #[id number], 160, cm, 09/26/19 13:56:00 EDT, Height, 47.8, [...] mL, 0 Refills, Maintenance,12/08/19 14:51:00 EDT, Suspension, [facility] #93057, 160, cm, 09/26/19 13:56:00 EDT, Height, 47.8, [...] mL, 0 Refills, Maintenance, 12/26/19 14:02:00 EDT, [facility] #[id number],Drink 240mL every 10-15 minutes until first half [...] 0 Refills, Maintenance, 04/18/19 9:52:00 EST, Tablet, [facility] #21314, 160, cm, 04/18/19 9:08:00 EST, Height, 47.8, kg, 04/04/19 11:54:00 EST, Dry Weight Start Date: 04/18/19 Status: Ordered SUMAtriptan 50 mg oral tablet 1 tablet = 50 mg, By Mouth, Daily, # 18 tablet, 1 Refills, Soft Stop, 03/05/20 16:16:00 EST, Tablet, [facility]/pharmacy #1130, 160, cm, 02/09/20 11:43:00 EST, Height, 42.2, kg, 02/09/20 11:49:00 EST, Dry Weight Start Date: 03/05/20 Status: Ordered Truvada 200 mg-300 mg oral tablet 1 tablet, By Mouth, Daily, # 30 tablet, 0 Refills, Maintenance, 04/19/19 13:05:00 EST, Tablet, [facility] #[id number], 1 tablet By Mouth Daily, 160, cm, 04/18/19 9:08:00 EST, Height, 47.8, kg, 04/04/19 11:54:00 EST, Dry Weight Start Date: 04/19/19 Status: Ordered Tylenol 325 mg oral tablet 650 mg, 2, tablet, By Mouth, Every 6 hours, PRN, not to exceed 4000 mg/day, Zambian label, # 120 tablet, Refills 1, Tot. Refills 1, Maintenance, Pain , Moderate, 03/05/20 16:16:00 EST, Route to Pharmacy Electronically, [facility]/pharmacy #1130, Partial fill... Start Date: 03/05/20 Status: Ordered Vitamin D3 1000 intl units oral capsule 1 capsule = 1,000 International_Units, By Mouth, Daily, # 100 capsule, 0 Refills, Maintenance, 04/18/19 9:51:00 EST, Capsule, [facility] #[id number], 160, cm, 04/18/19 9:08:00 EST, Height, 47.8,kg, [...]
--- OUTSIDE RECORDS SUMMARY | 2022-10-23 01:18 | XMS_ITS | Continuity of Care Document ---
Author Name Unknown Organization [facility] Address [address] [place] [address]- Care Team Providers Care Microbiology Technician Name Role Phone Ezio Cedeño MD Primary Care Physician [phone] Encounter [facility] [place] Date(s): 08/22/21 - 09/21/21 [facility] [address] [place] [id number] Attending Physician: aJnet Lundberg Admitting Physician: AdmtrJanet Referring Physician: AdmtrJanet [...] 12/07/12 Gi douglas 1Admin Note: VIS GIVEN wallisian 02/08/08 2Admin Note: vis given dated 10/15/12 Medications Combipatch 0.05 mg-0.14 mg/24 hours transdermal film, extended release 1 patch, Topically, Every Thursday and , # 8 patch, 2 Refills, Maintenance, 08/06/21 19:38:00EDT, [facility]/pharmacy #1130, Partial fill upon patient request if the prescription is for a schedule IIopioid drug., 1 patch Topically Every Thursday and . Start Date: 08/06/21 Status: Ordered dicyclomine 10 mg oral capsule 1 capsule, By Mouth, 4 times a day, PRN NEEDED FOR MODERATE PAIN, # 120 capsule, 1 Refills, [facility], 160, cm, 04/22/21 10:31:00 EST, Height, 42.2, kg, 02/09/20 11:49:00 EST, Dry Weight Start Date: 05/21/21 Status: Ordered hydroquinone 2% topical cream 1 application, Topically, 2 times a day, Cymro, apply to dark lesions on face, use sunscreen withuse, # 28 Gm, 1 Refills, Maintenance, 11/08/20 10:16:00 EDT, Cream, [facility] #85831, 1 application Topically 2 times a day,Instr:Cymro, a... Start Date: 11/08/20 Status: Ordered meclizine 25 mg oral tablet 1 tablet = 25 mg, By Mouth, 3 times a day, PRN for dizziness, # 90 tablet, 1 Refills, Maintenance, 11/08/20 10:17:00 EDT, Tablet, [facility] #40314, 160, cm, 11/08/20 9:35:00 EDT, Height, 42.2, kg, 02/09/20 11:49:00 EST, Dry Weight Start Date: 11/08/20 Status: Ordered MiraLax oral powder for reconstitution = 17 Gm, By Mouth, Daily, Titrate as needed, # 527 Gm, 1 Refills, Maintenance, 04/22/21 10:51:00 EST, [facility]/pharmacy #1130, Partial fill upon patient request if the prescription is for a schedule II opioid drug., 17 Gm By Mouth Daily,Instr:Titrate as ne... Start Date: 04/22/21 Status: Ordered mirtazapine 7.5 mg oral tablet 1 tablet, By Mouth, Daily at bedtime, # 30 tablet, 3 Refills, [facility], 160, cm, 07/29/21 11:45:00 EDT, Height, 42.2, [...] 0 Refills, Maintenance, 11/08/20 10:17:00 EDT, Tablet, [facility] #10660, 160, cm, 11/08/20 9:35:00 EDT, Height, 42.2, kg, 02/09/20 11:49:00 EST, Dry Weight Start Date: 11/08/20 Status: Ordered SUMAtriptan 50 mg oral tablet 1 tablet = 50 mg, By Mouth, Daily, # 18 tablet, 1 Refills, Soft Stop, 11/08/20 10:17:00 EDT, Tablet, [facility] #04918, 160, cm, 11/08/20 9:35:00 EDT, Height, 42.2, [...] tablet, 0 Refills, Maintenance, 07/29/21 11:16:00 EDT, [id number], Partial fill upon patient request if the [...]
--- OUTSIDE RECORDS SUMMARY | 2022-10-23 01:18 | XMS_ITS | Continuity of Care Document ---
Author Name Unknown Organization [facility] Address [address] [place] [address]- Care Team Providers Care Staff Mechanical Engineer Name Role Phone Davidson BATRES, Ezio Simms Primary Care Physician [phone] [place] [facility] [place] 04/05/20 - 05/05/[address] [id number] Attending Physician: Janet Lundberg Admitting Physician: AdmtrJanet Referring Physician: Admtr, [id number] [...] given dated 10/15/12 2Admin Note: VIS GIVEN east timorese 02/08/08 Medications dicyclomine 10 mg oral capsule [...] PAIN, # 60 capsule, 1 Refills, Maintenance, [facility], 160, cm, 02/09/20 11:43:00 EST, Height, 42.2, [...] 0 Refills, Maintenance, 03/05/20 16:16:00 EST, Tablet, [facility]/pharmacy #1130, 160, cm, 02/09/20 11:43:00 EST, Height, 42.2, kg, 02/09/20 11:49:00 EST, Dry Weight Start Date: 03/05/20 Status: Ordered hydroquinone 2% topical cream 1 application, Topically, 2 times a day, Argentine, apply to dark lesions on face, use sunscreen withuse, # 28 Gm, 1 Refills, Maintenance, 10/06/18 13:14:56 EDT, Cream, 1 application Topically 2 timesa day,Instr:Argentine, apply to dark lesions on face,... Start Date: 10/06/18 Status: Ordered Lactaid 3000 units oral tablet 3 tablet = 9,000 units, By Mouth, 3 times a day with meals, # 120 tablet, 0 Refills, Maintenance, 12/08/19 14:49:00 EDT, Tablet, [facility] #11968, 160, cm, 09/26/19 13:56:00 EDT, Height, 47.8, [...] mL, 0 Refills, Maintenance,12/08/19 14:51:00 EDT, Suspension, [facility] #76379, 160, cm, 09/26/19 13:56:00 EDT, Height, 47.8, [...] mL, 0 Refills, Maintenance, 12/26/19 14:02:00 EDT, [facility] #[id number],Drink 240mL every 10-15 minutes until first half [...] 0 Refills, Maintenance, 04/18/19 9:52:00 EST, Tablet, [facility] #03592, 160, cm, 04/18/19 9:08:00 EST, Height, 47.8, kg, 04/04/19 11:54:00 EST, Dry Weight Start Date: 04/18/19 Status: Ordered SUMAtriptan 50 mg oral tablet 1 tablet = 50 mg, By Mouth, Daily, # 18 tablet, 1 Refills, Soft Stop, 03/05/20 16:16:00 EST, Tablet, [facility]/pharmacy #1130, 160, cm, 02/09/20 11:43:00 EST, Height, 42.2, kg, 02/09/20 11:49:00 EST, Dry Weight Start Date: 03/05/20 Status: Ordered Truvada 200 mg-300 mg oral tablet 1 tablet, By Mouth, Daily, # 30 tablet, 0 Refills, Maintenance, 04/19/19 13:05:00 EST, Tablet, [facility] #48397, 1 tablet By Mouth Daily, 160, cm, 04/18/19 9:08:00 EST, Height, 47.8, kg, 04/04/19 11:54:00 EST, Dry Weight Start Date: 04/19/19 Status: Ordered Tylenol 325 mg oral tablet 650 mg, 2, tablet, By Mouth, Every 6 hours, PRN, not to exceed 4000 mg/day, Argentine label, # 120 tablet, Refills 1, Tot. Refills 1, Maintenance, Pain , Moderate, 03/05/20 16:16:00 EST, Route to Pharmacy Electronically, [facility]/pharmacy #1130, Partial fill... Start Date: 03/05/20 Status: Ordered Vitamin D3 1000 intl units oral capsule 1 capsule = 1,000 International_Units, By Mouth, Daily, # 100 capsule, 0 Refills, Maintenance, 04/18/19 9:51:00 EST, Capsule, [facility] #51905, 160, cm, 04/18/19 9:08:00 EST, Height, 47.8,kg, [...]
--- OUTSIDE RECORDS SUMMARY | 2022-10-23 01:18 | XMS_ITS | Continuity of Care Document ---
Author Name Unknown Organization [facility] Address [address] [place] [address]- Care Team Providers Care University Administrator Name Role Phone Ezio Cedeño MD Primary Care Physician Encounter [facility] [place] Date(s): 03/01/21 - 04/04/21 [facility] [address] [place], [place] [address] Attending Physician: Not on Staff, Attending [...] 12/07/12 Gi douglas 1Admin Note: VIS GIVEN hungarian 02/08/08 2Admin Note: vis given dated 10/15/12 Medications dicyclomine 10 mg oral capsule See Instructions, TAKE ONE CAPSULE BY MOUTH FOUR TIMES DAILY, # 120 capsule, 1 Refills, Soft Stop, 11/08/20 10:17:00 EDT, [facility] #[id number], 160, cm, 11/08/20 9:35:00 EDT, Height, 42.2, kg,02/09/20 11:49:00 EST, Dry Weight Start Date: 11/08/20 Status: Ordered dicyclomine 10 mg oral capsule 1 capsule = 10 mg, By Mouth, 4 times a day, # 120 capsule, 1 Refills, Maintenance, 02/21/21 13:02:00 EST, Capsule, [facility]/pharmacy #1130, Partial fill upon patient request if the prescription is for a schedule II opioid drug., 160, cm, 11/08/20 9:35:00 E... Start Date: 02/21/21 Stop Date: 04/22/21 Status: Ordered hydroquinone 2% topical cream 1 application, Topically, 2 times a day, Libyan, apply to dark lesions on face, use sunscreen withuse, # 28 Gm, 1 Refills, Maintenance, 11/08/20 10:16:00 EDT, Cream, [facility] #61265, 1 application Topically 2 times a day,Instr:Libyan, a... Start Date: 11/08/20 Status: Ordered meclizine 25 mg oral tablet 1 tablet = 25 mg, By Mouth, 3 times a day, PRN for dizziness, # 90 tablet, 1 Refills, Maintenance, 11/08/20 10:17:00 EDT, Tablet, [facility] #68442, 160, cm, 11/08/20 9:35:00 EDT, Height, 42.2, kg, 02/09/20 11:49:00 EST, Dry Weight Start Date: 11/08/20 Status: Ordered mirtazapine 15 mg oral tablet 1 tablet = 15 mg, By Mouth, Daily at bedtime, Libyan, # 30 tablet, 2 Refills, Maintenance, 02/27/21 8:35:00 EST, Tablet, [facility]/pharmacy #1130, Partial fill upon [...] 0 Refills, Maintenance, 11/08/20 10:17:00 EDT, Tablet, [facility] #19851, 160, cm, 11/08/20 9:35:00 EDT, Height, 42.2, kg, 02/09/20 11:49:00 EST, Dry Weight Start Date: 11/08/20 Status: Ordered SUMAtriptan 50 mg oral tablet 1 tablet = 50 mg, By Mouth, Daily, # 18 tablet, 1 Refills, Soft Stop, 11/08/20 10:17:00 EDT, Tablet, [facility] #57525, 160, cm, 11/08/20 9:35:00 EDT, Height, 42.2, kg, 02/09/20 11:49:00 EST, Dry Weight Start Date: 11/08/20 Status: Ordered Vitamin D3 1000 intl units oral tablet 1 tablet = 25 mcg, By Mouth, Daily, # 90 tablet, 1 Refills, Maintenance, 02/28/21 11:18:00 EST, [facility]/pharmacy #1130, Partial fill upon [...]
--- OUTSIDE RECORDS SUMMARY | 2022-10-23 01:18 | XMS_ITS | Continuity of Care Document ---
Author Name Unknown Organization [facility] Address [address] [place] [address]- Care Team Providers Care Radar Technician Name Role Phone Jillian Bautista DO Primary Care Physician [id number] Date(s): 06/05/21 - 12/12/[address] [address]- Attending Physician: Myla Peralta MD Admitting Physician: Myla Peralta MD Allergies, Adverse [...] 8 patch, 2 Refills, Maintenance, 08/06/21 19:38:00EDT, [facility]/pharmacy #1130, Partial fill upon patient request if the prescription is for a schedule IIopioid drug., 1 patch Topically Every Thursday and . Start Date: 08/06/21 Status: Ordered dicyclomine 10 mg oral capsule 1 capsule, By Mouth, 4 times a day, PRN NEEDED FOR MODERATE PAIN, # 120 capsule, 1 Refills, [facility], 160, cm, 04/22/21 10:31:00 EST, Height, 42.2, kg, 02/09/20 11:49:00 EST, Dry Weight Start Date: 05/21/21 Status: Ordered hydroquinone 2% topical cream 1 application, Topically, 2 times a day, Czech, apply to dark lesions on face, use sunscreen withuse, # 28 Gm, 1 Refills, Maintenance, 11/08/20 10:16:00 EDT, Cream, [facility] #05129, 1 application Topically 2 times a day,Instr:Czech, a... Start Date: 11/08/20 Status: Ordered meclizine 25 mg oral tablet 1 tablet = 25 mg, By Mouth, 3 times a day, PRN for dizziness, # 90 tablet, 1 Refills, Maintenance, 11/08/20 10:17:00 EDT, Tablet, [facility] #29358, 160, cm, 11/08/20 9:35:00 EDT, Height, 42.2, kg, 02/09/20 11:49:00 EST, Dry Weight Start Date: 11/08/20 Status: Ordered MiraLax oral powder for reconstitution = 17 Gm, By Mouth, Daily, Titrate as needed, # 527 Gm, 1 Refills, Maintenance, 04/22/21 10:51:00 EST, [facility]/pharmacy #1130, Partial fill upon patient request if the prescription is for a schedule II opioid drug., 17 Gm By Mouth Daily,Instr:Titrate as ne... Start Date: 04/22/21 Status: Ordered mirtazapine 7.5 mg oral tablet 1 tablet, By Mouth, Daily at bedtime, # 30 tablet, 3 Refills, [facility] 60643, 160, cm, 07/29/21 11:45:00 EDT, Height, 42.2, kg, 02/09/20 11:49:00 EST, Dry Weight Start Date: 08/06/21 Status: Ordered NuLYTELY with Flavor Packs oral powder for reconstitution See Instructions, Drink 240mL every 15-20 minutes until first half is gone. Repeat 6 hours prior toprocedure., # 4,000 mL, 0 Refills, Maintenance, 04/22/21 10:50:00 EST, [facility]/pharmacy #1130, Partial fill upon patient [...] 0 Refills, Maintenance, 11/08/20 10:17:00 EDT, Tablet, [facility] #86040, 160, cm, 11/08/20 9:35:00 EDT, Height, 42.2, kg, 02/09/20 11:49:00 EST, Dry Weight Start Date: 11/08/20 Status: Ordered SUMAtriptan 50 mg oral tablet 1 tablet = 50 mg, By Mouth, Daily, PRN as needed for migraine headache, may repeat dose in 2 hours if needed, # 18 tablet, 0 Refills, Soft Stop, 11/18/21 15:46:00 EDT, Tablet, [facility]/pharmacy #1130, 160, cm, 08/22/21 14:32:00 EDT, [...] tablet, 0 Refills, Maintenance, 07/29/21 11:16:00 EDT, [facility]39, Partial fill upon patient request if the [...] Team Personnel Name: Jillian Bautista DO Address: [address] [place] [address]
--- OUTSIDE RECORDS SUMMARY | 2022-10-23 01:18 | XMS_ITS | Continuity of Care Document ---
Author Name Unknown Organization [facility] Address [address] [place] [address]- Care Team Providers Care Agriculturist Name Role Phone Davidson BATRES, Ezio Laguerre Primary Care Physician Encounter [facility] Date(s): 07/27/20 - 08/26/20 [facility] [address] [place] [id number] Allergies, Adverse Reactions, Alerts Substance Reaction Severity [...] given dated 10/15/12 2Admin Note: VIS GIVEN icelandic 02/08/08 Medications dicyclomine 10 mg oral capsule See Instructions, TAKE 1 CAPSULE BY MOUTH FOUR TIMES A DAY NEEDED FOR PAIN, # 60 capsule, 1 Refills, Maintenance, [facility], 160, cm, 02/09/20 11:43:00 EST, Height, 42.2, [...] 1 application, Topically, 2 times a day, Trinidadian, apply to dark lesions on face, use sunscreen withuse, # 28 Gm, 1 Refills, Maintenance, 10/06/18 13:14:56 EDT, Cream, 1 application Topically 2 timesa day,Instr:Trinidadian, apply to dark lesions on face,... Start Date: 10/06/18 Status: Ordered Lactaid 3000 units oral tablet 3 tablet = 9,000 units, By Mouth, 3 times a day with meals, # 120 tablet, 0 Refills, Maintenance, 12/08/19 14:49:00 EDT, Tablet, [facility] #41085, 160, cm, 09/26/19 13:56:00 EDT, Height, 47.8, [...] mL, 0 Refills, Maintenance,12/08/19 14:51:00 EDT, Suspension, [facility] #17888, 160, cm, 09/26/19 13:56:00 EDT, Height, 47.8, [...] mL, 0 Refills, Maintenance, 12/26/19 14:02:00 EDT, [facility] #56812,Drink 240mL every 10-15 minutes until first half [...] Gm, 0 Refills, Maintenance, 08/03/20 12:17:00 EDT, [facility]/pharmacy #1130, Partial fill upon patient request if the prescription is... Start Date: 08/03/20 Status: Ordered simethicone 80 mg oral tablet 1 tablet = 80 mg, Chew, 3 times a day after meals, PRN as needed for gas, # 60 tablet, 0 Refills, Maintenance, 04/18/19 9:52:00 EST, Tablet, [facility] #67291, 160, cm, 04/18/19 9:08:00 EST, Height, 47.8, [...] 0 Refills, Maintenance, 04/19/19 13:05:00 EST, Tablet, [facility] #63517, 1 tablet By Mouth Daily, 160, cm, 04/18/19 9:08:00 EST, Height, 47.8, kg, 04/04/19 11:54:00 EST, Dry Weight Start Date: 04/19/19 Status: Ordered Tylenol 325 mg oral tablet 650 mg, 2, tablet, By Mouth, Every 6 hours, PRN, not to exceed 4000 mg/day, Trinidadian label, # 120 tablet, Refills 1, Tot. Refills 1, Maintenance, Pain , Moderate, 03/05/20 16:16:00 EST, Route to Pharmacy Electronically, [facility]/pharmacy #[id number], Partial fill... Start Date: 03/05/20 Status: Ordered Vitamin D3 1000 intl units oral capsule 1 capsule = 1,000 International_Units, By Mouth, Daily, # 100 capsule, 0 Refills, Maintenance, 04/18/19 9:51:00 EST, Capsule, [facility] #[id number], 160, cm, 04/18/19 9:08:00 EST, Height, 47.8,kg, [...]
--- OUTSIDE RECORDS SUMMARY | 2022-10-23 01:18 | XMS_ITS | Continuity of Care Document ---
Author Name Unknown Organization [facility] Address [address] [place] [address]- Care Team Providers Care Aviation Boatswain'S Mate Name Role Phone Naun BATRES, Romel Ma Primary Care Physician [place] [facility] [place] - 03/10/19 [facility]/[address] [address] [facility] Attending Physician: Janet Lundberg Admitting [...] given dated 10/15/12 2Admin Note: VIS GIVEN chinese 02/08/08 Medications dicyclomine 10 mg oral capsule [...] EDT, Cream, 1 application Topically 2 timesa day,Instr:French, apply to dark lesions on face,... Start [...]
--- OUTSIDE RECORDS SUMMARY | 2022-10-23 01:19 | XMS_ITS | Continuity of Care Document ---
Author Name Unknown Organization [facility] Address [address] [place] [address]- Care Team Providers Care Hand Cloth Cutter Name Role Phone Twindieudonne JACKSON Jillian Primary Care Physician Encounter [facility] Date(s): 01/13/22 - 03/01/22 [facility] [address], [place] [address] Attending Physician: Topher Austin MD [...] 8 patch, 6 Refills, Maintenance, 01/08/22 20:12:00EDT, [facility]/pharmacy #[id number], Partial fill upon patient request if the prescription is for a schedule IIopioid drug., 1 patch Topically Every Thursday and .. Start Date: 01/08/22 Status: Ordered dicyclomine 10 mg oral capsule 1 capsule, By Mouth, 4 times a day, PRN NEEDED FOR MODERATE PAIN, # 120 capsule, 1 Refills, [id number], 160, cm, 04/22/21 10:31:00 EST, Height, 42.2, kg, 02/09/20 11:49:00 EST, Dry Weight Start Date: 05/21/21 Status: Ordered escitalopram 10 mg oral tablet 1 tablet = 10 mg, By Mouth, Daily, Take half tablet daily for 2 weeks, then 1 tablet daily thereafter Chinese label please, # 90 tablet, 0 Refills, Maintenance, 02/12/22 11:01:00 EST, Tablet, [facility]/pharmacy #[id number], Partial fill upon patient request i... Start Date: 02/12/22 Stop Date: 05/13/22 Status: Ordered MiraLax oral powder for reconstitution = 17 Gm, By Mouth, Daily, Titrate as needed, # 527 Gm, 1 Refills, Maintenance, 04/22/21 10:51:00 EST, [facility]/pharmacy #[id number], Partial fill upon patient [...] Refills, Soft Stop, 11/18/21 15:46:00 EDT, Tablet, [id number], 160, cm, 08/22/21 14:32:00 EDT, Height, [...] Problem List Condition Confirmation Course Effective Dates [facility] Informant Anxiety Confirmed Active Chronic constipation [...] S Resident Member Role: PCP Address: Address: [address] [place] [address] Care Team Related Persons Name: DANA MARTIN Address: home [address] [place] [address] Name: TERENCE MARTIN Name: CHAVA VASQUEZ Address: home [address] [place] [address] Name: , [facility] NONE
--- OUTSIDE RECORDS SUMMARY | 2022-10-23 01:19 | XMS_ITS | Continuity of Care Document ---
Author Name Unknown Organization [facility] Address [address] [place] [id number]- Care Team Providers Care Job Molder Name Role Phone Jillian Bautista DO Primary Care Physician [place] [facility] 05/24/22 [facility] [address] [place] [address]- Attending Physician: Janet Lundberg Admitting Physician: Janet [...] 12/07/12 Gi douglas 1Admin Note: VIS GIVEN hebrew 02/08/08 2Admin Note: vis given dated 10/15/12 [...] 1 Refills, Maintenance, 05/19/22 13:52:00 EST, Tablet, [facility]/pharmacy #[id number], Partial fill upon patient request if the prescription is for a schedule II opioid drug., 160, cm, ... Start Date: 05/19/22 Status: Ordered dicyclomine 10 mg oral capsule 1 capsule, By Mouth, 4 times a day, PRN NEEDED FOR MODERATE PAIN, # 120 capsule, 1 Refills, 03/05/22 12:35:00 EST, [facility]/pharmacy #[id number], 160, cm, 01/08/22 9:48:00 EDT, Height Start Date: 03/05/22 Status: Ordered escitalopram 10 mg oral tablet 1 tablet = 10 mg, By Mouth, Daily, Take half tablet daily for 2 weeks, then 1 tablet daily thereafter Beninese label please, # 90 tablet, 0 Refills, Maintenance, 02/12/22 11:01:00 EST, Tablet, [facility]/pharmacy #[id number], Partial fill upon patient request i... Start Date: 02/12/22 Stop Date: 05/13/22 Status: Ordered MiraLax oral powder for reconstitution = 17 Gm, By Mouth, Daily, Titrate as needed, # 527 Gm, 1 Refills, Maintenance, 04/22/21 10:51:00 EST, [facility]/pharmacy #[id number], Partial fill upon patient request if the prescription is for a schedule II opioid drug., 17 Gm By Mouth Daily,Instr:Titrate as ne... Start Date: 04/22/21 Status: Ordered naproxen 375 mg oral tablet 375 mg, 1, tablet, By Mouth, 2 times a day, PRN, # 20 tablet, Refills 1, Tot. Refills 1, Maintenance, for pain, 05/19/22 13:53:00 EST, Route to Pharmacy Electronically, [id number], Partial fill upon patient request [...] Team Personnel Name: Jillian Bautista DO Position: [facility] Resident Member Role: PCP Address: Address: [address] [place] [address]- Care Team Related Persons Name: DANA MARTIN Address: [address] [place] [address] Name: TERENCE MARTIN Name: CHAVA VASQUEZ Address: home [address] [place] [address] Name: JONES TAPIA
--- OUTSIDE RECORDS SUMMARY | 2022-10-23 01:19 | XMS_ITS | Continuity of Care Document ---
Author Name Unknown Organization [facility] Address [address] [place] [address]- Care Team Providers Care Vision Impaired Teacher Name Role Phone Davidson BATRES, Ezio Laguerre Primary Care Physician Encounter [facility] Date(s): 06/04/20 - 07/04/20 [facility] [address] [place], [place] [address] Attending Physician: Janet Lundberg Admitting [...] given dated 10/15/12 2Admin Note: VIS GIVEN stateless 02/08/08 Medications dicyclomine 10 mg oral capsule See Instructions, TAKE 1 CAPSULE BY MOUTH FOUR TIMES A DAY NEEDED FOR PAIN, # 60 capsule, 1 Refills, Maintenance, [id number], 160, cm, 02/09/20 11:43:00 EST, Height, 42.2, kg, 02/09/20 11:49:00 EST, Dry Weight Start Date: 04/25/20 Status: Ordered dicyclomine 10 mg oral capsule 1 capsule = 10 mg, By Mouth, 4 times a day, PRN Pain , Moderate, # 60 capsule, 5 Refills, Maintenance, 07/04/20 11:41:00 EDT, Capsule, [facility]/pharmacy #1130, 160, cm, 07/04/20 8:39:00 EDT, Height, [...] Maintenance, 03/05/20 16:16:00 EST, Tablet, [facility]/pharmacy #1130, 160, cm, 02/09/20 11:43:00 EST, Height, 42.2, kg, 02/09/20 11:49:00 EST, Dry Weight Start Date: 03/05/20 Status: Ordered hydroquinone 2% topical cream 1 application, Topically, 2 times a day, Kosovan, apply to dark lesions on face, use sunscreen withuse, # 28 Gm, 1 Refills, Maintenance, 10/06/18 13:14:56 EDT, Cream, 1 application Topically 2 timesa day,Instr:Kosovan, apply to dark lesions on face,... Start Date: 10/06/18 Status: Ordered Lactaid 3000 units oral tablet 3 tablet = 9,000 units, By Mouth, 3 times a day with meals, # 120 tablet, 0 Refills, Maintenance, 12/08/19 14:49:00 EDT, Tablet, [facility] #[id number], 160, cm, 09/26/19 13:56:00 EDT, Height, 47.8, [...] mL, 0 Refills, Maintenance,12/08/19 14:51:00 EDT, Suspension, [facility][id number], 160, cm, 09/26/19 13:56:00 EDT, Height, 47.8, [...] mL, 0 Refills, Maintenance, 12/26/19 14:02:00 EDT, [facility] #[id number],Drink 240mL every 10-15 minutes until first half [...] 0 Refills, Maintenance, 04/18/19 9:52:00 EST, Tablet, [facility] #[id number], 160, cm, 04/18/19 9:08:00 EST, Height, 47.8, kg, 04/04/19 11:54:00 EST, Dry Weight Start Date: 04/18/19 Status: Ordered SUMAtriptan 50 mg oral tablet 1 tablet = 50 mg, By Mouth, Daily, # 18 tablet, 1 Refills, Soft Stop, 03/05/20 16:16:00 EST, Tablet, [facility]/pharmacy #1130, 160, cm, 02/09/20 11:43:00 EST, Height, 42.2, kg, 02/09/20 11:49:00 EST, Dry Weight Start Date: 03/05/20 Status: Ordered Truvada 200 mg-300 mg oral tablet 1 tablet, By Mouth, Daily, re-start PreP, # 30 tablet, 3 Refills, Maintenance, 05/29/20 14:58:00 EST, Tablet, [facility]/pharmacy #1130, 1 tablet By Mouth Daily,Instr:re-start PreP, 160, cm, 02/09/20 11:43:00 EST, Height, 42.2, kg, 02/09/20 11:49:00 EST, Dry... Start Date: 05/29/20 Status: Ordered Truvada 200 mg-300 mg oral tablet 1 tablet, By Mouth, Daily, # 30 tablet, 0 Refills, Maintenance, 04/19/19 13:05:00 EST, Tablet, [facility] #[id number], 1 tablet By Mouth Daily, 160, cm, 04/18/19 9:08:00 EST, Height, 47.8, kg, 04/04/19 11:54:00 EST, Dry Weight Start Date: 04/19/19 Status: Ordered Tylenol 325 mg oral tablet 650 mg, 2, tablet, By Mouth, Every 6 hours, PRN, not to exceed 4000 mg/day, Kosovan label, # 120 tablet, Refills 1, Tot. Refills 1, Maintenance, Pain , Moderate, 03/05/20 16:16:00 EST, Route to Pharmacy Electronically, [facility]/pharmacy #[id number], Partial fill... Start Date: 03/05/20 Status: Ordered Vitamin D3 1000 intl units oral capsule 1 capsule = 1,000 International_Units, By Mouth, Daily, # 100 capsule, 0 Refills, Maintenance, 04/18/19 9:51:00 EST, Capsule, [facility] #[id number], 160, cm, 04/18/19 9:08:00 EST, Height, 47.8,kg, [...]
--- OUTSIDE RECORDS SUMMARY | 2022-10-23 01:19 | XMS_ITS | Continuity of Care Document ---
Author Name Unknown Organization [facility] Address [address] [place] [address]- Care Team Providers Care Unemployment Inspector Name Role Phone Naun BATRES, Romel Ma Primary Care Physician Encounter [facility] Date(s): 04/30/19 - 08/28/19 [facility]/[address] [address]- [facility] Attending Physician: Nika Garcia MD Admitting Physician: Nika Garcia MD Allergies, Adverse Reactions, Alerts Substance Reaction [...] given dated 10/15/12 2Admin Note: VIS GIVEN pakistani 02/08/08 Medications calcium carbonate-simethicone 250 mg-62.5 mg oral capsule 2 capsule, By Mouth, Every 2 hours, PRN for gas, # 48 capsule, 0 Refills, Maintenance, 06/03/19 20:42:00 EDT, Capsule, [facility] #[id number], 2 capsule By Mouth Every 2 hours,PRN:for [...] 05/13/19 12:22:00 EST, Route to Pharmacy Electronically, [facility] #[id number], 160, cm, 05/13/19 11:57:00 EST, Height, 47.8... Start Date: 05/13/19 Status: Ordered hydroquinone 2% topical cream 1 application, Topically, 2 times a day, Mauritian, apply to dark lesions on face, use sunscreen withuse, # 28 Gm, 1 Refills, Maintenance, 10/06/18 13:14:56 EDT, Cream, 1 application Topically 2 timesa day,Instr:Mauritian, apply to dark lesions on face,... Start [...] Refills, Maintenance, 04/18/19 9:51:00 EST, REC Powder, [facility] #[id number], 17 Gm By Mouth 2 times a day,PRN:Constipation,Instr:dissolve in water... Start Date: 04/18/19 Status: Ordered Nabumetone Tablet TK 1 T PO QID Start Date: 05/17/18 Status: Ordered omeprazole 40 mg oral enteric coated capsule 1 capsule = 40 mg, By Mouth, Daily, # 90 capsule, 0 Refills, Maintenance, 06/03/19 20:41:00 EDT, ECCapsule, [facility] #[id number], 160, cm, 06/02/19 10:06:00 EDT, Height, 47.8, kg, 04/04/19 11:54:00 EST, Dry Weight Start Date: 06/03/19 Status: Ordered simethicone 80 mg oral tablet 1 tablet = 80 mg, Chew, 3 times a day after meals, PRN as needed for gas, # 60 tablet, 0 Refills, Maintenance, 04/18/19 9:52:00 EST, Tablet, [facility] #[id number], 160, cm, 04/18/19 9:08:00 EST, Height, 47.8, kg, 04/04/19 11:54:00 EST, Dry Weight Start Date: 04/18/19 Status: Ordered SUMAtriptan 50 mg oral tablet 1 tablet = 50 mg, By Mouth, Daily, # 18 tablet, 1 Refills, Soft Stop, 04/18/19 9:51:00 EST, Tablet,[facility] #[id number], 160, cm, 04/18/19 9:08:00 EST, Height, 47.8, kg, 04/04/19 11:54:00 EST, Dry Weight Start Date: 04/18/19 Status: Ordered Truvada 200 mg-300 mg oral tablet 1 tablet, By Mouth, Daily, # 30 tablet, 3 Refills, Maintenance, 07/12/19 13:47:00 EDT, Tablet, [facility] #[id number], 1 tablet By Mouth Daily, 160, cm, 06/02/19 10:06:00 EDT, Height, 47.8, kg, 04/04/19 11:54:00 EST, Dry Weight Start Date: 07/12/19 Status: Ordered Truvada 200 mg-300 mg oral tablet 1 tablet, By Mouth, Daily, # 30 tablet, 0 Refills, Maintenance, 04/19/19 13:05:00 EST, Tablet, [facility] #[id number], 1 tablet By Mouth Daily, 160, cm, 04/18/19 9:08:00 EST, Height, 47.8, kg, 04/04/19 11:54:00 EST, Dry Weight Start Date: 04/19/19 Status: Ordered Vitamin D3 1000 intl units oral capsule 1 capsule = 1,000 International_Units, By Mouth, Daily, # 100 capsule, 0 Refills, Maintenance, 04/18/19 9:51:00 EST, Capsule, [facility] #[id number], 160, cm, 04/18/19 9:08:00 EST, Height, 47.8,kg, [...]
--- OUTSIDE RECORDS SUMMARY | 2022-10-23 01:19 | XMS_ITS | Continuity of Care Document ---
Author Name Unknown Organization [facility] Address [address] [place] [address]- Care Team Providers Care Clinical Services Director Name Role Phone Davidson BATRES, Ezio Laguerre Primary Care Physician [place] [facility] 01/25/21 - 02/28/21 [facility] [address] [place] [email or web address]] Attending Physician: Anastasiia Alonzo NP Admitting Physician: Anastasiia Alonzo NP Allergies, Adverse Reactions, Alerts Substance Reaction [...] 12/07/12 Gi douglas 1Admin Note: VIS GIVEN albanian 02/08/08 2Admin Note: vis given dated 10/15/12 Medications dicyclomine 10 mg oral capsule See Instructions, TAKE ONE CAPSULE BY MOUTH FOUR TIMES DAILY, # 120 capsule, 1 Refills, Soft Stop, 11/08/20 10:17:00 EDT, [facility] #[id number], 160, cm, 11/08/20 9:35:00 EDT, Height, 42.2, kg,02/09/20 11:49:00 EST, Dry Weight Start Date: 11/08/20 Status: Ordered dicyclomine 10 mg oral capsule 1 capsule = 10 mg, By Mouth, 4 times a day, # 120 capsule, 1 Refills, Maintenance, 02/21/21 13:02:00 EST, Capsule, [facility]/pharmacy #[id number], Partial fill upon patient request if the prescription is for a schedule II opioid drug., 160, cm, 11/08/20 9:35:00 E... Start Date: 02/21/21 Stop Date: 04/22/21 Status: Ordered hydroquinone 2% topical cream 1 application, Topically, 2 times a day, Sao Tomean, apply to dark lesions on face, use sunscreen withuse, # 28 Gm, 1 Refills, Maintenance, 11/08/20 10:16:00 EDT, Cream, [facility] #[id number], 1 application Topically 2 times a day,Instr:Sao Tomean, a... Start Date: 11/08/20 Status: Ordered meclizine 25 mg oral tablet 1 tablet = 25 mg, By Mouth, 3 times a day, PRN for dizziness, # 90 tablet, 1 Refills, Maintenance, 11/08/20 10:17:00 EDT, Tablet, [facility] #[id number], 160, cm, 11/08/20 9:35:00 EDT, Height, 42.2, kg, 02/09/20 11:49:00 EST, Dry Weight Start Date: 11/08/20 Status: Ordered mirtazapine 15 mg oral tablet 1 tablet = 15 mg, By Mouth, Daily at bedtime, Sao Tomean, # 30 tablet, 2 Refills, Maintenance, 02/27/21 8:35:00 EST, Tablet, [facility]/pharmacy #[id number], Partial fill upon patient request if the prescription is for a schedule II opioid drug., 160, cm, 02/27/21 8:... Start Date: 02/27/21 Status: Ordered simethicone 80 mg oral tablet 1 tablet = 80 mg, Chew, 3 times a day after meals, PRN as needed for gas, # 60 tablet, 0 Refills, Maintenance, 11/08/20 10:17:00 EDT, Tablet, [facility] #[id number], 160, cm, 11/08/20 9:35:00 EDT, Height, 42.2, kg, 02/09/20 11:49:00 EST, Dry Weight Start Date: 11/08/20 Status: Ordered SUMAtriptan 50 mg oral tablet 1 tablet = 50 mg, By Mouth, Daily, # 18 tablet, 1 Refills, Soft Stop, 11/08/20 10:17:00 EDT, Tablet, [facility] #[id number], 160, cm, 11/08/20 9:35:00 EDT, Height, 42.2, kg, 02/09/20 11:49:00 EST, Dry Weight Start Date: 11/08/20 Status: Ordered Vitamin D3 1000 intl units oral tablet 1 tablet = 25 mcg, By Mouth, Daily, # 90 tablet, 1 Refills, Maintenance, 02/28/21 11:18:00 EST, [facility]/pharmacy #[id number], Partial fill upon patient request [...]
--- OUTSIDE RECORDS SUMMARY | 2022-10-23 01:19 | XMS_ITS | Continuity of Care Document ---
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 Allergies, Adverse Reactions, Alerts Substance [...] 12/07/12 Gi douglas 1Admin Note: VIS GIVEN kyrgyz 02/08/08 2Admin Note: vis given dated 10/15/12 Medications Combipatch 0.05 mg-0.14 mg/24 hours transdermal film, extended release 1 patch, Topically, Every Thursday and , # 8 patch, 6 Refills, Maintenance, 01/08/22 20:12:00EDT, [facility]/pharmacy #[id number], Partial fill upon patient request if the prescription is for a schedule IIopioid drug., 1 patch Topically Every Thursday and . Start Date: 01/08/22 Status: Ordered cyclobenzaprine 7.5 mg oral tablet 1 tablet = 7.5 mg, By Mouth, 3 times a day, PRN for spasm, # 60 tablet, 1 Refills, Maintenance, 05/19/22 13:52:00 EST, Tablet, [facility]/pharmacy #[id number], Partial fill upon patient request if the prescription is for a schedule II opioid drug., 160, cm, ... Start Date: 05/19/22 Status: Ordered dicyclomine 10 mg oral capsule 1 capsule, By Mouth, 4 times a day, PRN NEEDED FOR MODERATE PAIN, # 120 capsule, 0 Refills, 08/08/22 14:35:00 EDT, [facility]., 160, cm, 07/11/22 9:44:00 EDT, Height Start Date: 08/08/22 Status: Ordered escitalopram 10 mg oral tablet 1 tablet = 10 mg, By Mouth, Daily, Take half tablet daily for 2 weeks, then 1 tablet daily thereafter Cuban label please, # 90 tablet, 0 Refills, Maintenance, 02/12/22 11:01:00 EST, Tablet, [facility]/pharmacy #[id number], Partial fill upon patient request i... Start Date: 02/12/22 Stop Date: 05/13/22 Status: Ordered MiraLax oral powder for reconstitution = 17 Gm, By Mouth, Daily, Titrate as needed, # 527 Gm, 1 Refills, Maintenance, 07/30/22 9:16:00 EDT, [facility]., Partial fill upon patient request if the prescription is for a schedule II opioid drug., 17 Gm By Mouth Daily,Instr:Titrat... Start Date: 07/30/22 Status: Ordered naproxen 375 mg oral tablet 375 mg, 1, tablet, By Mouth, 2 times a day, PRN, # 20 tablet, Refills 1, Tot. Refills 1, Maintenance, for pain, 05/19/22 13:53:00 EST, Route to Pharmacy Electronically, [facility] [...] Daily, # 30 tablet, 3 Refills, Maintenance, 07/11/22 10:00:00 EDT, [facility], 160, cm, 07/11/22 9:44:00 EDT, Height Start Date: 07/11/22 Status: Ordered Readi-Cat 2 oral suspension 450 mL = 9 Gm, By Mouth, 2 times a day, Please dispense two 450 mL bottles for a total dose that equals 900 mLs. Drink first bottle [address] and then drink second bottle [address] scan,# 2 each, 0 Refills, Maintenance, 07/23/22 9:18:00... Start Date: 07/23/22 Status: Ordered SUMAtriptan 50 mg oral tablet 1 tablet = 50 mg, By Mouth, Daily, PRN as needed for migraine headache, may repeat dose in 2 hours if needed, # 30 tablet, 11 Refills, Soft Stop, 05/19/22 13:52:00 EST, Tablet, [facility]/pharmacy #[id number], 160, cm, 05/19/22 13:39:00 EST, [...] tablet, 1 Refills, Maintenance, 02/12/22 10:33:00 EST, [facility]/pharmacy #[id number], Partial [...] Team Personnel Name: Jillian Bautista DO Position: [facility] Resident Member Role: PCP Address: Address: [address] [place] [address]- Care Team Related Persons Name: DANA MARTIN Address: home [address] [place] [address] Name: TERENCE MARTIN Name: CHAVA VASQUEZ Address: home [address] [place] [address] Name: JONES TAPIA
--- OUTSIDE RECORDS SUMMARY | 2022-10-23 01:19 | XMS_ITS | Continuity of Care Document ---
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 Start Date: 10/06/18 Status: Ordered Lactaid 3000 units oral tablet 3 tablet = 9,000 units, By Mouth, 3 times a day with meals, # 120 tablet, 0 Refills, Maintenance, 12/08/19 14:49:00 EDT, Tablet, [facility] #[id number], 160, cm, 09/26/19 13:56:00 EDT, Height, 47.8, kg, 04/04/19 11:54:00 EST, Dry Weight Start Date: 12/08/19 Status: Ordered meclizine 25 mg oral tablet 1 tablet = 25 mg, By Mouth, 3 times a day, PRN for dizziness, # 90 tablet, 1 Refills, Maintenance, 04/08/18 16:05:52 EST, Tablet Start Date: 04/08/18 Status: Ordered Proctosol-HC 2.5% topical cream See Instructions, Topically 3 times a day apply in a thin film to the affected skin and rub in gently and completely, # 20 Gm, 0 Refills, Maintenance, 08/03/20 12:17:00 EDT, [facility]/pharmacy #[id number], Partial fill upon patient request if the prescription is... Start Date: 08/03/20 Status: Ordered simethicone 80 mg oral tablet 1 tablet = 80 mg, Chew, 3 times a day after meals, PRN as needed for gas, # 60 tablet, 0 Refills, Maintenance, 04/18/19 9:52:00 EST, Tablet, [facility] #[id number], 160, cm, 04/18/19 9:08:00 EST, Height, 47.8, kg, 04/04/19 11:54:00 EST, Dry Weight Start Date: 04/18/19 Status: Ordered SUMAtriptan 50 mg oral tablet 1 tablet = 50 mg, By Mouth, Daily, # 18 tablet, 1 Refills, Soft Stop, 03/05/20 16:16:00 EST, Tablet, [facility]/pharmacy #[id number], 160, cm, 02/09/20 11:43:00 EST, Height, 42.2, kg, 02/09/20 11:49:00 EST, Dry Weight Start Date: 03/05/20 Status: Ordered Truvada 200 mg-300 mg oral tablet 1 tablet, By Mouth, Daily, re-start PreP, # 30 tablet, 3 Refills, Maintenance, 05/29/20 14:58:00 EST, Tablet, [facility]/pharmacy #[id number], 1 tablet By Mouth Daily,Instr:re-start PreP, 160, cm, 02/09/20 11:43:00 EST, Height, 42.2, kg, 02/09/20 11:49:00 EST, Dry... Start Date: 05/29/20 Status: Ordered Tylenol 325 mg oral tablet 650 mg, 2, tablet, By Mouth, Every 6 hours, PRN, not to exceed 4000 mg/day, Barbadian label, # 120 tablet, Refills 1, Tot. Refills 1, Maintenance, Pain , Moderate, 03/05/20 16:16:00 EST, Route to Pharmacy Electronically, [facility]/pharmacy #[id number], Partial fill... Start Date: 03/05/20 Status: Ordered Problem List Condition Effective Dates [...]
--- OUTSIDE RECORDS SUMMARY | 2022-10-23 01:19 | XMS_ITS | Continuity of Care Document ---
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 Name Role Phone Naun BATRES, Romel Ma Primary Care Physician [place] [facility] [place] 07/29/19 - 08/28/19 [facility]/[address] [address]- [facility] Attending Physician: Janet Lundberg Admitting Physician: AdmJanet [...] given dated 10/15/12 2Admin Note: VIS GIVEN palauan 02/08/08 Medications calcium carbonate-simethicone 250 mg-62.5 mg oral capsule 2 capsule, By Mouth, Every 2 hours, PRN for gas, # 48 capsule, 0 Refills, Maintenance, 06/03/19 20:42:00 EDT, Capsule, [facility] #[id number], 2 capsule By Mouth Every 2 hours,PRN:for [...] 05/13/19 12:22:00 EST, Route to Pharmacy Electronically, [facility] #[id number], 160, cm, 05/13/19 11:57:00 EST, Height, 47.8... Start Date: 05/13/19 Status: Ordered hydroquinone 2% topical cream 1 application, Topically, 2 times a day, Arabic, apply to dark lesions on face, use sunscreen withuse, # 28 Gm, 1 Refills, Maintenance, 10/06/18 13:14:56 EDT, Cream, 1 application Topically 2 timesa day,Instr:Arabic, apply to dark lesions on face,... Start [...] Refills, Maintenance, 04/18/19 9:51:00 EST, REC Powder, [facility] #[id number], 17 Gm By Mouth 2 times a day,PRN:Constipation,Instr:dissolve in water... Start Date: 04/18/19 Status: Ordered Nabumetone Tablet TK 1 T PO QID Start Date: 05/17/18 Status: Ordered omeprazole 40 mg oral enteric coated capsule 1 capsule = 40 mg, By Mouth, Daily, # 90 capsule, 0 Refills, Maintenance, 06/03/19 20:41:00 EDT, ECCapsule, [facility] #[id number], 160, cm, 06/02/19 10:06:00 EDT, Height, 47.8, kg, 04/04/19 11:54:00 EST, Dry Weight Start Date: 06/03/19 Status: Ordered simethicone 80 mg oral tablet 1 tablet = 80 mg, Chew, 3 times a day after meals, PRN as needed for gas, # 60 tablet, 0 Refills, Maintenance, 04/18/19 9:52:00 EST, Tablet, [facility] #[id number], 160, cm, 04/18/19 9:08:00 EST, Height, 47.8, kg, 04/04/19 11:54:00 EST, Dry Weight Start Date: 04/18/19 Status: Ordered SUMAtriptan 50 mg oral tablet 1 tablet = 50 mg, By Mouth, Daily, # 18 tablet, 1 Refills, Soft Stop, 04/18/19 9:51:00 EST, Tablet,[facility] #[id number], 160, cm, 04/18/19 9:08:00 EST, Height, 47.8, kg, 04/04/19 11:54:00 EST, Dry Weight Start Date: 04/18/19 Status: Ordered Truvada 200 mg-300 mg oral tablet 1 tablet, By Mouth, Daily, # 30 tablet, 3 Refills, Maintenance, 07/12/19 13:47:00 EDT, Tablet, [facility] #[id number], 1 tablet By Mouth Daily, 160, cm, 06/02/19 10:06:00 EDT, Height, 47.8, kg, 04/04/19 11:54:00 EST, Dry Weight Start Date: 07/12/19 Status: Ordered Truvada 200 mg-300 mg oral tablet 1 tablet, By Mouth, Daily, # 30 tablet, 0 Refills, Maintenance, 04/19/19 13:05:00 EST, Tablet, [facility] #[id number], 1 tablet By Mouth Daily, 160, cm, 04/18/19 9:08:00 EST, Height, 47.8, kg, 04/04/19 11:54:00 EST, Dry Weight Start Date: 04/19/19 Status: Ordered Vitamin D3 1000 intl units oral capsule 1 capsule = 1,000 International_Units, By Mouth, Daily, # 100 capsule, 0 Refills, Maintenance, 04/18/19 9:51:00 EST, Capsule, [facility] #[id number], 160, cm, 04/18/19 9:08:00 EST, Height, 47.8,kg, [...]
--- OUTSIDE RECORDS SUMMARY | 2022-10-23 01:19 | XMS_ITS | Continuity of Care Document ---
Author Name Unknown Organization [facility] Address [address] [place] [address]- Care Team Providers Care Cylinder Devalver Name Role Phone Marilinrose JACKSON Jillian Primary Care Physician [place] [facility] Date(s): 01/13/22 - 02/12/22 [facility] [address], [place] [address] Allergies, Adverse Reactions, Alerts Substance Reaction Severity [...] 12/07/12 Gi douglas 1Admin Note: VIS GIVEN kenyan 02/08/08 2Admin Note: vis given dated 10/15/12 Medications Combipatch 0.05 mg-0.14 mg/24 hours transdermal film, extended release 1 patch, Topically, Every Thursday and , # 8 patch, 6 Refills, Maintenance, 01/08/22 20:12:00EDT, [facility]/pharmacy #[id number], Partial fill upon patient request if the prescription is for a schedule IIopioid drug., 1 patch Topically Every Thursday and .. Start Date: 01/08/22 Status: Ordered dicyclomine 10 mg oral capsule 1 capsule, By Mouth, 4 times a day, PRN NEEDED FOR MODERATE PAIN, # 120 capsule, 1 Refills, [facility], 160, cm, 04/22/21 10:31:00 EST, Height, 42.2, kg, 02/09/20 11:49:00 EST, Dry Weight Start Date: 05/21/21 Status: Ordered escitalopram 10 mg oral tablet 1 tablet = 10 mg, By Mouth, Daily, Take half tablet daily for 2 weeks, then 1 tablet daily thereafter Kittitian label please, # 90 tablet, 0 Refills, Maintenance, 02/12/22 11:01:00 EST, Tablet, [facility]/pharmacy #1130, Partial fill upon patient request i... Start Date: 02/12/22 Stop Date: 05/13/22 Status: Ordered MiraLax oral powder for reconstitution = 17 Gm, By Mouth, Daily, Titrate as needed, # 527 Gm, 1 Refills, Maintenance, 04/22/21 10:51:00 EST, [facility]/pharmacy #1130, Partial fill upon patient request [...] S Resident Member Role: PCP Address: Address: [address] [place] [address]- Care Team Related Persons Name: DANA MARTIN Address: home [address] [place] [address] Name: TERENCE MARTIN Name: CHAVA VASQUEZ Address: home [address] [place] [address] Name: PT, [facility]
--- OUTSIDE RECORDS SUMMARY | 2022-10-23 01:19 | XMS_ITS | Continuity of Care Document ---
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 Name Role Phone Davidson BATRES, Ezio Laguerre Primary Care Physician [phone] Encounter [facility] Date(s): 05/29/21 - 06/28/[address] [address] Allergies, Adverse Reactions, Alerts [...] 12/07/12 Gi douglas 1Admin Note: VIS GIVEN filipino 02/08/08 2Admin Note: vis given dated 10/15/12 Medications dicyclomine 10 mg oral capsule 1 capsule, By Mouth, 4 times a day, PRN NEEDED FOR MODERATE PAIN, # 120 capsule, 1 Refills, [facility], 160, cm, 04/22/21 10:31:00 EST, Height, 42.2, kg, 02/09/20 11:49:00 EST, Dry Weight Start Date: 05/21/21 Status: Ordered hydroquinone 2% topical cream 1 application, Topically, 2 times a day, Angolan, apply to dark lesions on face, use sunscreen withuse, # 28 Gm, 1 Refills, Maintenance, 11/08/20 10:16:00 EDT, Cream, [facility] #[id number], 1 application Topically 2 times a day,Instr:Angolan, a... Start Date: 11/08/20 Status: Ordered meclizine 25 mg oral tablet 1 tablet = 25 mg, By Mouth, 3 times a day, PRN for dizziness, # 90 tablet, 1 Refills, Maintenance, 11/08/20 10:17:00 EDT, Tablet, [facility] #[id number], 160, cm, 11/08/20 9:35:00 EDT, Height, 42.2, kg, 02/09/20 11:49:00 EST, Dry Weight Start Date: 11/08/20 Status: Ordered MiraLax oral powder for reconstitution = 17 Gm, By Mouth, Daily, Titrate as needed, # 527 Gm, 1 Refills, Maintenance, 04/22/21 10:51:00 EST, [facility]/pharmacy #1130, Partial fill upon patient request if the prescription is for a schedule II opioid drug., 17 Gm By Mouth Daily,Instr:Titrate as ne... Start Date: 04/22/21 Status: Ordered mirtazapine 7.5 mg oral tablet 1 tablet = 7.5 mg, By Mouth, Daily at bedtime, # 30 tablet, 3 Refills, Maintenance, 04/09/21 9:45:00 EST, [facility]/pharmacy #1130, Partial fill upon patient request if the prescription is for a schedule II opioid drug., 160, cm, 04/09/21 9:04:00 EST, [facility]... Start Date: 04/09/21 Stop Date: 08/07/21 Status: Ordered NuLYTELY with Flavor Packs oral powder for reconstitution See Instructions, Drink 240mL every 15-20 minutes until first half is gone. Repeat 6 hours prior toprocedure., # 4,000 mL, 0 Refills, Maintenance, 04/22/21 10:50:00 EST, [facility]/pharmacy #1130, Partial fill upon patient [...] 0 Refills, Maintenance, 11/08/20 10:17:00 EDT, Tablet, [facility] #[id number], 160, cm, 11/08/20 9:35:00 EDT, Height, 42.2, kg, 02/09/20 11:49:00 EST, Dry Weight Start Date: 11/08/20 Status: Ordered SUMAtriptan 50 mg oral tablet 1 tablet = 50 mg, By Mouth, Daily, # 18 tablet, 1 Refills, Soft Stop, 11/08/20 10:17:00 EDT, Tablet, [facility] #89530, 160, cm, 11/08/20 9:35:00 EDT, Height, 42.2, kg, 02/09/20 11:49:00 EST, Dry Weight Start Date: 11/08/20 Status: Ordered Truvada 200 mg-300 mg oral tablet 1 tablet, By Mouth, Daily, re-start PreP, # 30 tablet, 6 Refills, Maintenance, 05/14/21 8:00:00 EST, Tablet, [facility]/pharmacy #1130, 1 tablet By Mouth [...]
--- OUTSIDE RECORDS SUMMARY | 2022-10-23 01:19 | XMS_ITS | Continuity of Care Document ---
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 Name Role Phone Davidson BATRES, Ezio Laguerre Primary Care Physician [phone] Encounter [facility] Date(s): 11/08/20 - 12/08/20 [facility] [address] [place], [place] [address] Attending Physician: Janet Lundberg Admitting Physician: AdmtrJanet Referring Physician: Admtr, Janet Allergies, Adverse Reactions, [...] 12/07/12 Gi douglas 1Admin Note: VIS GIVEN greenlandic 02/08/08 2Admin Note: vis given dated 10/15/12 Medications dicyclomine 10 mg oral capsule See Instructions, TAKE ONE CAPSULE BY MOUTH FOUR TIMES DAILY, # 120 capsule, 1 Refills, Soft Stop, 11/08/20 10:17:00 EDT, [facility] #[id number], 160, cm, 11/08/20 9:35:00 EDT, Height, 42.2, kg,02/09/20 11:49:00 EST, Dry Weight Start Date: 11/08/20 Status: Ordered hydroquinone 2% topical cream 1 application, Topically, 2 times a day, British, apply to dark lesions on face, use sunscreen withuse, # 28 Gm, 1 Refills, Maintenance, 11/08/20 10:16:00 EDT, Cream, [facility] #29646, 1 application Topically 2 times a day,Instr:British, a... Start Date: 11/08/20 Status: Ordered meclizine 25 mg oral tablet 1 tablet = 25 mg, By Mouth, 3 times a day, PRN for dizziness, # 90 tablet, 1 Refills, Maintenance, 11/08/20 10:17:00 EDT, Tablet, [facility] #17208, 160, cm, 11/08/20 9:35:00 EDT, Height, 42.2, kg, 02/09/20 11:49:00 EST, Dry Weight Start Date: 11/08/20 Status: Ordered simethicone 80 mg oral tablet 1 tablet = 80 mg, Chew, 3 times a day after meals, PRN as needed for gas, # 60 tablet, 0 Refills, Maintenance, 11/08/20 10:17:00 EDT, Tablet, [facility] #01595, 160, cm, 11/08/20 9:35:00 EDT, Height, 42.2, kg, 02/09/20 11:49:00 EST, Dry Weight Start Date: 11/08/20 Status: Ordered SUMAtriptan 50 mg oral tablet 1 tablet = 50 mg, By Mouth, Daily, # 18 tablet, 1 Refills, Soft Stop, 11/08/20 10:17:00 EDT, Tablet, [facility] #75217, 160, cm, 11/08/20 9:35:00 EDT, Height, 42.2, [...]
--- OUTSIDE RECORDS SUMMARY | 2022-10-23 01:19 | XMS_ITS | Continuity of Care Document ---
Author Name Unknown Organization [facility] Address [address] [place] [address]- Care Team Providers Care Coremaker Name Role Phone Davidson BATRES, Ezio Laguerre Primary Care Physician Encounter [facility] [place] Date(s): 07/10/20 - 08/09/20 [facility] [address] [place] [address] Allergies, Adverse Reactions, [...] given dated 10/15/12 2Admin Note: VIS GIVEN polish 02/08/08 Medications dicyclomine 10 mg oral capsule See Instructions, TAKE 1 CAPSULE BY MOUTH FOUR TIMES A DAY NEEDED FOR PAIN, # 60 capsule, 1 Refills, Maintenance, [facility], 160, cm, 02/09/20 11:43:00 EST, Height, 42.2, [...] 0 Refills, Maintenance, 03/05/20 16:16:00 EST, Tablet, [facility]/pharmacy #1130, 160, cm, 02/09/20 11:43:00 EST, [...] 1 application, Topically, 2 times a day, Surinamese, apply to dark lesions on face, use sunscreen withuse, # 28 Gm, 1 Refills, Maintenance, 10/06/18 13:14:56 EDT, Cream, 1 application Topically 2 timesa day,Instr:Surinamese, apply to dark lesions on face,... Start Date: 10/06/18 Status: Ordered Lactaid 3000 units oral tablet 3 tablet = 9,000 units, By Mouth, 3 times a day with meals, # 120 tablet, 0 Refills, Maintenance, 12/08/19 14:49:00 EDT, Tablet, [facility] #73971, 160, cm, 09/26/19 13:56:00 EDT, Height, 47.8, [...] mL, 0 Refills, Maintenance,12/08/19 14:51:00 EDT, Suspension, [facility] #[id number], 160, cm, 09/26/19 13:56:00 EDT, Height, 47.8, [...] mL, 0 Refills, Maintenance, 12/26/19 14:02:00 EDT, [facility] #[id number],Drink 240mL every 10-15 minutes until first half [...] Gm, 0 Refills, Maintenance, 08/03/20 12:17:00 EDT, [facility]/pharmacy #1130, Partial fill upon patient request if the prescription is... Start Date: 08/03/20 Status: Ordered simethicone 80 mg oral tablet 1 tablet = 80 mg, Chew, 3 times a day after meals, PRN as needed for gas, # 60 tablet, 0 Refills, Maintenance, 04/18/19 9:52:00 EST, Tablet, [facility] #21272, 160, cm, 04/18/19 9:08:00 EST, Height, 47.8, kg, 04/04/19 11:54:00 EST, Dry Weight Start Date: 04/18/19 Status: Ordered SUMAtriptan 50 mg oral tablet 1 tablet = 50 mg, By Mouth, Daily, # 18 tablet, 1 Refills, Soft Stop, 03/05/20 16:16:00 EST, Tablet, [facility]/pharmacy #1130, 160, cm, 02/09/20 11:43:00 EST, Height, 42.2, kg, 02/09/20 11:49:00 EST, Dry Weight Start Date: 03/05/20 Status: Ordered Truvada 200 mg-300 mg oral tablet 1 tablet, By Mouth, Daily, re-start PreP, # 30 tablet, 3 Refills, Maintenance, 05/29/20 14:58:00 EST, Tablet, [facility]/pharmacy #1130, 1 tablet By Mouth Daily,Instr:re-start PreP, 160, cm, 02/09/20 11:43:00 EST, Height, 42.2, kg, 02/09/20 11:49:00 EST, Dry... Start Date: 05/29/20 Status: Ordered Truvada 200 mg-300 mg oral tablet 1 tablet, By Mouth, Daily, # 30 tablet, 0 Refills, Maintenance, 04/19/19 13:05:00 EST, Tablet, [facility] #[id number], 1 tablet By Mouth Daily, 160, cm, 04/18/19 9:08:00 EST, Height, 47.8, kg, 04/04/19 11:54:00 EST, Dry Weight Start Date: 04/19/19 Status: Ordered Tylenol 325 mg oral tablet 650 mg, 2, tablet, By Mouth, Every 6 hours, PRN, not to exceed 4000 mg/day, Surinamese label, # 120 tablet, Refills 1, Tot. Refills 1, Maintenance, Pain , Moderate, 03/05/20 16:16:00 EST, Route to Pharmacy Electronically, [facility]/pharmacy #[id number], Partial fill... Start Date: 03/05/20 Status: Ordered Vitamin D3 1000 intl units oral capsule 1 capsule = 1,000 International_Units, By Mouth, Daily, # 100 capsule, 0 Refills, Maintenance, 04/18/19 9:51:00 EST, Capsule, [facility] #46262, 160, cm, 04/18/19 9:08:00 EST, Height, 47.8,kg, [...]
--- OUTSIDE RECORDS SUMMARY | 2022-10-23 01:19 | XMS_ITS | Continuity of Care Document ---
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 Name Role Phone Davidson BATRES, Ezio Laguerre Primary Care Physician [phone] Encounter [facility] Date(s): 07/19/20 - 08/18/20 [facility] [address] [place] [address] Attending Physician: Janet Lundberg Admitting Physician: AdmJanet wynn Referring Physician: [id number] Allergies, Adverse Reactions, Alerts Substance Reaction Severity [...] given dated 10/15/12 2Admin Note: VIS GIVEN wallisian 02/08/08 Medications dicyclomine 10 mg oral capsule See Instructions, TAKE 1 CAPSULE BY MOUTH FOUR TIMES A DAY NEEDED FOR PAIN, # 60 capsule, 1 Refills, Maintenance, [facility], 160, cm, 02/09/20 11:43:00 EST, Height, 42.2, kg, 02/09/20 11:49:00 EST, Dry Weight Start Date: 04/25/20 Status: Ordered dicyclomine 10 mg oral capsule 1 capsule = 10 mg, By Mouth, 4 times a day, PRN Pain , Moderate, # 60 capsule, 5 Refills, Maintenance, 07/04/20 11:41:00 EDT, Capsule, [facility]/pharmacy #1130, 160, cm, 07/04/20 8:39:00 [...] 0 Refills, Maintenance, 03/05/20 16:16:00 EST, Tablet, [facility]/pharmacy #1130, 160, cm, 02/09/20 11:43:00 EST, Height, 42.2, kg, 02/09/20 11:49:00 EST, Dry Weight Start Date: 03/05/20 Status: Ordered hydroquinone 2% topical cream 1 application, Topically, 2 times a day, Malaysian, apply to dark lesions on face, use sunscreen withuse, # 28 Gm, 1 Refills, Maintenance, 10/06/18 13:14:56 EDT, Cream, 1 application Topically 2 timesa day,Instr:Malaysian, apply to dark lesions on face,... Start Date: 10/06/18 Status: Ordered Lactaid 3000 units oral tablet 3 tablet = 9,000 units, By Mouth, 3 times a day with meals, # 120 tablet, 0 Refills, Maintenance, 12/08/19 14:49:00 EDT, Tablet, [facility] #[id number], 160, cm, 09/26/19 13:56:00 EDT, Height, 47.8, [...] mL, 0 Refills, Maintenance,12/08/19 14:51:00 EDT, Suspension, [facility] #[id number], 160, cm, 09/26/19 13:56:00 EDT, Height, 47.8, [...] mL, 0 Refills, Maintenance, 12/26/19 14:02:00 EDT, [facility] #[id number],Drink 240mL every 10-15 minutes until first half [...] Gm, 0 Refills, Maintenance, 08/03/20 12:17:00 EDT, [facility]/pharmacy #1130, Partial fill upon patient request if the prescription is... Start Date: 08/03/20 Status: Ordered simethicone 80 mg oral tablet 1 tablet = 80 mg, Chew, 3 times a day after meals, PRN as needed for gas, # 60 tablet, 0 Refills, Maintenance, 04/18/19 9:52:00 EST, Tablet, [facility] #04193, 160, cm, 04/18/19 9:08:00 EST, Height, 47.8, kg, 04/04/19 11:54:00 EST, Dry Weight Start Date: 04/18/19 Status: Ordered SUMAtriptan 50 mg oral tablet 1 tablet = 50 mg, By Mouth, Daily, # 18 tablet, 1 Refills, Soft Stop, 03/05/20 16:16:00 EST, Tablet, [facility]/pharmacy #1130, 160, cm, 02/09/20 11:43:00 EST, Height, 42.2, kg, 02/09/20 11:49:00 EST, Dry Weight Start Date: 03/05/20 Status: Ordered Truvada 200 mg-300 mg oral tablet 1 tablet, By Mouth, Daily, re-start PreP, # 30 tablet, 3 Refills, Maintenance, 05/29/20 14:58:00 EST, Tablet, [facility]/pharmacy #1130, 1 tablet By Mouth Daily,Instr:re-start PreP, 160, cm, 02/09/20 11:43:00 EST, Height, 42.2, kg, 02/09/20 11:49:00 EST, Dry... Start Date: 05/29/20 Status: Ordered Truvada 200 mg-300 mg oral tablet 1 tablet, By Mouth, Daily, # 30 tablet, 0 Refills, Maintenance, 04/19/19 13:05:00 EST, Tablet, [facility] #[id number], 1 tablet By Mouth Daily, 160, cm, 04/18/19 9:08:00 EST, Height, 47.8, kg, 04/04/19 11:54:00 EST, Dry Weight Start Date: 04/19/19 Status: Ordered Tylenol 325 mg oral tablet 650 mg, 2, tablet, By Mouth, Every 6 hours, PRN, not to exceed 4000 mg/day, Malaysian label, # 120 tablet, Refills 1, Tot. Refills 1, Maintenance, Pain , Moderate, 03/05/20 16:16:00 EST, Route to Pharmacy Electronically, [facility]/pharmacy #1130, Partial fill... Start Date: 03/05/20 Status: Ordered Vitamin D3 1000 intl units oral capsule 1 capsule = 1,000 International_Units, By Mouth, Daily, # 100 capsule, 0 Refills, Maintenance, 04/18/19 9:51:00 EST, Capsule, [facility] #[id number], 160, cm, 04/18/19 9:08:00 EST, Height, 47.8,kg, [...]
--- OUTSIDE RECORDS SUMMARY | 2022-10-23 01:19 | XMS_ITS | Continuity of Care Document ---
Author Name Unknown Organization [facility] Address [address] [place] [address]- Care Team Providers Care Lease Attendant Name Role Phone Naun BATRES, Romel Ma Primary Care Physician [phone] [place] [facility]/12[place] - 07/19/19 [facility]/[address] [address] [facility] Attending Physician: Henrietta RYDER, Debbie Lemus Allergies, Adverse [...] given dated 10/15/12 2Admin Note: VIS GIVEN romanian 02/08/08 Medications calcium carbonate-simethicone 250 mg-62.5 mg oral capsule 2 capsule, By Mouth, Every 2 hours, PRN for gas, # 48 capsule, 0 Refills, Maintenance, 06/03/19 20:42:00 EDT, Capsule, [email or web address] #[id number], 2 capsule By Mouth Every 2 hours,PRN:for [...] 05/13/19 12:22:00 EST, Route to Pharmacy Electronically, [email or web address] #[id number], 160, cm, 05/13/19 11:57:00 EST, Height, 47.8... Start Date: 05/13/19 Status: Ordered hydroquinone 2% topical cream 1 application, Topically, 2 times a day, Nauruan, apply to dark lesions on face, use sunscreen withuse, # 28 Gm, 1 Refills, Maintenance, 10/06/18 13:14:56 EDT, Cream, 1 application Topically 2 timesa day,Instr:Nauruan, apply to dark lesions on face,... Start [...] Refills, Maintenance, 04/18/19 9:51:00 EST, REC Powder, [email or web address] #[id number], 17 Gm By Mouth 2 times a day,PRN:Constipation,Instr:dissolve in water... Start Date: 04/18/19 Status: Ordered Nabumetone Tablet TK 1 T PO QID Start Date: 05/17/18 Status: Ordered omeprazole 40 mg oral enteric coated capsule 1 capsule = 40 mg, By Mouth, Daily, # 90 capsule, 0 Refills, Maintenance, 06/03/19 20:41:00 EDT, ECCapsule, [email or web address] #[id number], 160, cm, 06/02/19 10:06:00 EDT, Height, 47.8, kg, 04/04/19 11:54:00 EST, Dry Weight Start Date: 06/03/19 Status: Ordered simethicone 80 mg oral tablet 1 tablet = 80 mg, Chew, 3 times a day after meals, PRN as needed for gas, # 60 tablet, 0 Refills, Maintenance, 04/18/19 9:52:00 EST, Tablet, [facility] #[id number], 160, cm, 04/18/19 9:08:00 EST, Height, 47.8, kg, 04/04/19 11:54:00 EST, Dry Weight Start Date: 04/18/19 Status: Ordered SUMAtriptan 50 mg oral tablet 1 tablet = 50 mg, By Mouth, Daily, # 18 tablet, 1 Refills, Soft Stop, 04/18/19 9:51:00 EST, Tablet,[facility] #41948, 160, cm, 04/18/19 9:08:00 EST, Height, 47.8, kg, 04/04/19 11:54:00 EST, Dry Weight Start Date: 04/18/19 Status: Ordered Truvada 200 mg-300 mg oral tablet 1 tablet, By Mouth, Daily, # 30 tablet, 3 Refills, Maintenance, 07/12/19 13:47:00 EDT, Tablet, [email or web address] #[id number], 1 tablet By Mouth Daily, 160, cm, 06/02/19 10:06:00 EDT, Height, 47.8, kg, 04/04/19 11:54:00 EST, Dry Weight Start Date: 07/12/19 Status: Ordered Truvada 200 mg-300 mg oral tablet 1 tablet, By Mouth, Daily, # 30 tablet, 0 Refills, Maintenance, 04/19/19 13:05:00 EST, Tablet, [facility] #[id number], 1 tablet By Mouth Daily, 160, cm, 04/18/19 9:08:00 EST, Height, 47.8, kg, 04/04/19 11:54:00 EST, Dry Weight Start Date: 04/19/19 Status: Ordered Vitamin D3 1000 intl units oral capsule 1 capsule = 1,000 International_Units, By Mouth, Daily, # 100 capsule, 0 Refills, Maintenance, 04/18/19 9:51:00 EST, Capsule, [facility] #32181, 160, cm, 04/18/19 9:08:00 EST, Height, 47.8,kg, [...]
--- OUTSIDE RECORDS SUMMARY | 2022-10-23 01:19 | XMS_ITS | Continuity of Care Document ---
Author Name Unknown Organization 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 [address] [place], [place] [address] Attending Physician: Not on [...] 12/07/12 [facility] douglas 1Admin Note: VIS GIVEN italian 02/08/08 2Admin Note: vis given dated 10/15/12 Medications Combipatch 0.05 mg-0.14 mg/24 hours transdermal film, extended release 1 patch, Topically, Every Thursday and , # 8 patch, 6 Refills, Maintenance, 10/19/22 20:12:00EDT, [facility]/pharmacy #[id number], Partial fill upon patient request if the prescription is for a schedule IIopioid drug., 1 patch Topically Every Thursday and .. Start Date: 01/08/22 Status: Ordered cyclobenzaprine 7.5 mg oral tablet 1 tablet = 7.5 mg, By Mouth, 3 times a day, PRN for spasm, # 60 tablet, 1 Refills, Maintenance, 05/19/22 13:52:00 EST, Tablet, [facility]/pharmacy #[id number], Partial fill upon patient request if the prescription is for a schedule II opioid drug., 160, cm, ... Start Date: 05/19/22 Status: Ordered diclofenac 1% topical gel 1 application, Topically, 4 times a day, not to exceed 32 grams/day; back, in italian, # 100 Gm, 0 Refills, Maintenance, 09/10/22 9:51:00 EDT, Gel, [facility]/pharmacy #[id number], Partial fill upon patient request if the prescription is for a schedule II opioid d... Start Date: 09/10/22 Status: Ordered dicyclomine 10 mg oral capsule 1 capsule, By Mouth, 4 times a day, PRN NEEDED FOR MODERATE PAIN, # 120 capsule, 0 Refills, 09/10/22 9:49:00 EDT, [facility]/pharmacy #[id number], 160, cm, 07/11/22 9:44:00 EDT, Height Start Date: 09/10/22 Status: Ordered escitalopram 10 mg oral tablet 1 tablet = 10 mg, By Mouth, Daily, Take half tablet daily for 2 weeks, then 1 tablet daily thereafter Turkmen label please, # 90 tablet, 0 Refills, Maintenance, 02/12/22 11:01:00 EST, Tablet, [facility]/pharmacy #[id number], Partial fill upon patient request i... Start Date: 02/12/22 Stop Date: 05/13/22 Status: Ordered MiraLax oral powder for reconstitution = 17 Gm, By Mouth, Daily, Titrate as needed, # 527 Gm, 1 Refills, Maintenance, 07/30/22 9:16:00 EDT, [facility], Partial fill upon patient request if the prescription is for a schedule II opioid drug., 17 Gm By Mouth Daily,Instr:Titrat... Start Date: 07/30/22 Status: Ordered naproxen 375 mg oral tablet 375 mg, 1, tablet, By Mouth, 2 times a day, PRN, # 20 tablet, Refills 1, Tot. Refills 1, Maintenance, for pain, 05/19/22 13:53:00 EST, Route to Pharmacy Electronically, [facility]/pharmacy #[id number], Partial fill upon patient [...] 09/10/22 9:48:00 EDT, Route to Pharmacy Electronically, [facility]/pharmacy #[id number], Partialfill upon patient request if the prescription is fo... Start Date: 09/10/22 Status: Ordered SUMAtriptan 50 mg oral tablet 1 tablet = 50 mg, By Mouth, Daily, PRN as needed for migraine headache, may repeat dose in 2 hours if needed, # 30 tablet, 11 Refills, Soft Stop, 05/19/22 13:52:00 EST, Tablet, [facility]/pharmacy #[id number], 160, cm, 05/19/22 13:39:00 EST, [...] Team Personnel Name: Rodrigo Rocha DO Position: [facility] Resident Member Role: PCP Address: Address: [address] [place] [address] [place] [address]- Care Team Related Persons Name: DANA MARTIN Address: [address] [place] [address] Name: TERENCE MARTIN Name: CHAVA VASQUEZ Address: [address] [place] [address] Name: JONES TAPIA
== END 2022-10-23 01:27 | disposition left against medical advice (07) ==
PROVIDERS: Emergency Provider Emergency Medicine; PCP Internal Medicine
DX: M79.604 Pain in right leg (principal); M79.605 Pain in left leg
CPT/HCPCS: 99281; 99283